=== PATIENT | male | born 1960 | race African-American/Black ===

== ENCOUNTER 2016-08-27 13:58 | Emergency (ER) | payer BC ==
[2016-08-27 14:25] VITALS: BP 125/70
[2016-08-27] MEDS ORDERED: ACETAMINOPHEN 325 MG TABLET PO ONE (14:33)
--- NOTE | 2016-08-27 14:35 | ER Document Report ---
ED Medical Screen (RME) - General Stated Complaint: PASSING OUT Mode of Arrival: Ambulatory Information source: Patient Notes: Patient complains of cold chills, body aches and a syncopal episode 1 today. Patient does report cough 4 days. Patient states that he got up this afternoon around noon and got dizzy and passed out. Patient does report some mild chest pain that he states only is present when he coughs. hx: High blood pressure I have greeted and performed a rapid initial assessment of this patient. A comprehensive ED assessment and evaluation of the patient, analysis of test results and completion of the medical decision making process will be conducted by additional ED providers. TRAVEL OUTSIDE OF THE [place] IN LAST 30 DAYS: No - Related Data Allergies/Adverse Reactions: No Known Allergies Allergy (Verified 08/27/16 14:33) Past Medical History - Past Medical History Cardiac Medical History: Reports: Hx Hypertension Denies: Hx Coronary Artery Disease, Hx Heart Attack Pulmonary Medical History: Denies: Hx Asthma, Hx Bronchitis, Hx COPD, Hx Pneumonia Neurological Medical History: Denies: Hx Cerebrovascular Accident, Hx Seizures Musculoskeltal Medical History: Denies Hx Arthritis - Immunizations Hx Diphtheria, Pertussis, Tetanus Vaccination: Yes Physical Exam - Vital signs Vitals: Temp Pulse Resp BP Pulse Ox 101.3 F H 119 H 20 125/70 94 08/27/16 14:23 08/27/16 14:23 08/27/16 14:23 08/27/16 14:23 08/27/16 14:23 - Respiratory Respiratory status: No respiratory distress Breath sounds: Nonproductive cough Course - Vital Signs Vital signs: Temp Pulse Resp BP Pulse Ox 101.3 F H 119 H 20 125/70 94 08/27/16 14:23 08/27/16 14:23 08/27/16 14:23 08/27/16 14:23 08/27/16 14:23
[2016-08-27 15:48] LABS: ABSOLUTE LYMPHOCYTES (AUTO) 1.6 10^3/uL (0.5-4.7); ABSOLUTE MONOCYTES (AUTO) 0.8 10^3/uL (0.1-1.4); ABSOLUTE NEUT (AUTO) 7.3 10^3/uL (1.7-8.2); BASOPHILS % (AUTO) 0.5 % (0-2); EOSINOPHILS % (AUTO) 0.2 % (0-6); HEMATOCRIT 46.1 % (37.9-51.0); HEMOGLOBIN 16.1 g/dL (13.5-17.0); HGB HCT DIFFERENCE 2.2; LYMPHOCYTES % (AUTO) 16.3 % (13-45); MEAN CORPUSCULAR VOLUME 92 fl (80-97); MONOCYTES % (AUTO) 8.6 % (3-13); RED BLOOD COUNT 5.04 10^6/uL (4.35-5.55); RED CELL DISTRIBUTION WIDTH 13.6 % (11.5-14.0); SEGMENTED NEUTROPHILS % (AUTO) 74.4 % (42-78); WHITE BLOOD COUNT 9.8 10^3/uL (4.0-10.5)
[2016-08-27 15:53] LABS: APPEARANCE,URINE SLIGHTLY-CLOUDY; BILIRUBIN,URINE NEGATIVE (NEGATIVE); GLUCOSE, URINE NEGATIVE (NEGATIVE); KETONES,URINE NEGATIVE (NEGATIVE); LEUKOCYTE ESTERASE,URINE NEGATIVE (NEGATIVE); NITRITE,URINE NEGATIVE (NEGATIVE); PROTEIN,URINE 30 mg/dL (NEGATIVE); URINE SPECIFIC GRAVITY 1.026; UROBILINOGEN,URINE NEGATIVE mg/dL (<2.0)
[2016-08-27 16:05] LABS: ALANINE AMINOTRANSFERASE 34 U/L (21-72); ALBUMIN 4.1 g/dL (3.5-5.0); ALKALINE PHOSPHATASE 77 U/L (38-126); ANION GAP 16 (5-19); ASPARTATE AMINO TRANSFERASE 20 U/L (17-59); BILIRUBIN,TOTAL 0.6 mg/dL (0.2-1.3); BLOOD UREA NITROGEN 14 mg/dL (7-20); CALCIUM 9.1 mg/dL (8.4-10.2); CARBON DIOXIDE 26 mmol/L (22-30); CHLORIDE 97 mmol/L (98-107); CREATINE KINASE 170 U/L (55-170); CREATININE RESULT 1.11 mg/dL (0.52-1.25); GLUCOSE 119 mg/dL (75-110); MAGNESIUM 1.7 mg/dL (1.6-2.3); POTASSIUM 4.1 mmol/L (3.6-5.0); SODIUM 138.9 mmol/L (137-145); TOTAL PROTEIN 7.6 g/dL (6.3-8.2)
[2016-08-27 16:19] LABS: CREATINE KINASE MB < 0.22 ng/mL (<4.55); TROPONIN I < 0.012 ng/mL
[2016-08-27] MEDS ORDERED: ALBUTEROL SULFATE HFA (90 MCG/PUFF) 8 GM MDI (1 MDI/ER DISP) IH PRN (16:32)
--- NOTE | 2016-08-27 16:39 | ER Document Report ---
ED General - General Chief Complaint: Passed Out Prior to Arrival Stated Complaint: PASSING OUT Mode of Arrival: Ambulatory Information source: Patient Notes: 56-year-old male presents with complaints of body aches cough shortness of breath productive green since Sunday. Patient has had his flu vaccine Notes today he stood up to go to the bathroom and passed out for unknown amount time. Patient denies any chest pain shortness breath during that episode patient denies any neurological deficits or any specific area of pain at this time TRAVEL OUTSIDE OF THE [place] IN LAST 30 DAYS: No - HPI Onset: Other Onset/Duration: Persistent Quality of pain: Achy Severity: Mild Pain Level: 1 Associated symptoms: Body/muscle aches, Productive cough, Fever, Shortness of breath Exacerbated by: Coughing Relieved by: Denies Similar symptoms previously: No Recently seen / treated by doctor: No - Related Data Allergies/Adverse Reactions: No Known Allergies Allergy (Verified 08/27/16 14:33) Past Medical History - General Information source: Patient - Social History Smoking Status: Former Smoker Cigarette use (# per day): No Chew tobacco use (# tins/day): No Smoking Education Provided: No Frequency of alcohol use: None Drug Abuse: None Family History: Reviewed & Not Pertinent Patient has suicidal ideation: No Patient has homicidal ideation: No - Past Medical History Cardiac Medical History: Reports: Hx Hypertension Denies: Hx Coronary Artery Disease, Hx Heart Attack Pulmonary Medical History: Denies: Hx Asthma, Hx Bronchitis, Hx COPD, Hx Pneumonia Neurological Medical History: Denies: Hx Cerebrovascular Accident, Hx Seizures Renal/ Medical History: Denies: Hx Peritoneal Dialysis Musculoskeltal Medical History: Denies Hx Arthritis - Immunizations Hx Diphtheria, Pertussis, Tetanus Vaccination: Yes Review of Systems - Review of Systems Notes: REVIEW OF SYSTEMS: CONSTITUTIONAL : Admits fever or recent illness EENT: Denies eye, ear, throat, or mouth pain or symptoms. Denies nasal or sinus congestion or discharge. Denies throat, tongue, or mouth swelling or difficulty swallowing. CARDIOVASCULAR: Denies chest pain. Denies palpitations or racing or irregular heart beat. Denies ankle edema. RESPIRATORY: Admits to productive cough shortness of breath GASTROINTESTINAL: Denies abdominal pain or distention. Denies nausea, vomiting , or diarrhea. Denies blood in vomitus, stools, or per rectum. Denies black, tarry stools. Denies constipation. GENITOURINARY: Denies difficulty urinating, painful urination, burning, frequency, blood in urine, or discharge. MUSCULOSKELETAL: Miss to body aches SKIN: Denies rash, lesions or sores. HEMATOLOGIC : Denies easy bruising or bleeding. LYMPHATIC: Denies swollen, enlarged glands. NEUROLOGICAL: Denies confusion or altered mental status. Denies passing out or loss of consciousness. Denies dizziness or lightheadedness. Denies headache. Denies weakness or paralysis or loss of use of either side. Denies problems with gait or speech. Denies sensory loss, numbness, or tingling. Denies seizures. PSYCHIATRIC: Denies anxiety or stress. Denies depression, suicidal ideation, or homicidal ideation. ALL OTHER SYSTEMS REVIEWED AND NEGATIVE. Dictation was performed using [employer] voice recognition software PHYSICAL EXAMINATION: GENERAL: Febrile but Well-appearing, well-nourished and in no acute distress. HEAD: Atraumatic, normocephalic. EYES: Pupils equal round and reactive to light, extraocular movements intact, sclera anicteric, conjunctiva are normal. ENT: Nares patent, oropharynx clear without exudates. Moist mucous membranes. NECK: Normal range of motion, supple without lymphadenopathy LUNGS: Faint expiratory wheezing left upper lobe HEART: Initially noted to be tachycardic ABDOMEN: Soft, nontender, nondistended abdomen. No guarding, no rebound. No masses appreciated. Musculoskeletal: Normal range of motion, no pitting or edema. No cyanosis. NEUROLOGICAL: Cranial nerves grossly intact. Normal speech, normal gait. Normal sensory, motor exams PSYCH: Normal mood, normal affect. SKIN: Warm, Dry, normal turgor, no rashes or lesions noted. Physical Exam - Vital signs Vitals: Temp Pulse Resp BP Pulse Ox 101.3 F H 119 H 20 125/70 94 08/27/16 14:23 08/27/16 14:23 08/27/16 14:23 08/27/16 14:23 08/27/16 14:23 Course - Re-evaluation Re-evalutation: 08/27/16 16:38 This is a well-appearing 48-year-old male who presents with fevers body aches productive cough, patient has probable pneumonia given symptoms, chest x-ray however was clear. Influenza is pending patient will be given an inhaler for his wheezing 08/27/16 17:42 Influenza was negative, patient appears well otherwise we'll discharge at this time with antibiotics for his productive cough After performing a Medical Screening Examination, I estimate there is LOW risk for ACUTE CORONARY SYNDROME, RESPIRATORY FAILURE, SEPSIS OR MENINGITIS, thus I consider the discharge disposition reasonable. The patient and I have discussed the diagnosis and risks, and we agree with discharging home with close follow- up. We also discussed returning to the Emergency Department immediately if new or worsening symptoms occur. We have discussed the symptoms which are most concerning (e.g., changing or worsening pain, trouble swallowing or breathing, neck stiffness, fever) that necessitate immediate return. - Vital Signs Vital signs: Temp Pulse Resp BP Pulse Ox 101.3 F H 119 H 20 125/70 94 08/27/16 14:23 08/27/16 14:23 08/27/16 14:23 08/27/16 14:23 08/27/16 14:23 - Laboratory Result Diagrams: 08/27/16 15:00 08/27/16 15:00 Laboratory results interpreted by me: 08/27/16 08/27/16 15:00 15:00 Chloride 97 L Glucose 119 H Urine Protein 30 H - Diagnostic Test Radiology reviewed: Image reviewed, Reports reviewed Radiology results interpreted by me: 08/27/16 17:42 Discharge - Discharge Clinical Impression: Productive cough, Syncope and collapse Fever Qualifiers: Fever type: unspecified Qualified Code(s): R50.9 - Fever, unspecified Condition: Stable Disposition: HOME, SELF-CARE Instructions: Pneumonia ([facility]) Prescriptions: Azithromycin 250 mg PO ASDIR PRN #6 tablet PRN Reason: Referrals: AREN AGUERO MD [Primary Care Provider] - Follow up tomorrow
--- NOTE | 2016-08-27 19:33 | EKG REPORT ---
SEVERITY:- OTHERWISE NORMAL ECG - SINUS TACHYCARDIA : Confirmed by: Chasity Herring 27-Aug-2016 19:32:18
== END 2016-08-27 17:50 | disposition home or self-care (01) ==
LOC: ER 13:58
DX: R05 Cough (principal); R55 Syncope and collapse; R50.9 Fever, unspecified; M79.1 Myalgia; I10 Essential (primary) hypertension
CPT/HCPCS: 93005; 99284; 36415; 87040; 87205; 82553; 82550; 83735; 85025; 80053; 81001; 84484; 87804; 71020; 93010; J3490; 87070

== ENCOUNTER 2016-12-04 16:29 | Emergency (ER) | payer BC ==
[2016-12-04] MEDS ORDERED: IBUPROFEN 800 MG TABLET PO ONE (17:10)
--- NOTE | 2016-12-04 17:10 | ER Document Report ---
ED Medical Screen (RME) - General Mode of Arrival: Ambulatory Information source: Patient TRAVEL OUTSIDE OF THE [place] IN LAST 30 DAYS: No - General Chief Complaint: Abdominal Pain Stated Complaint: LEFT SIDE FLANK PAIN Time Seen by Provider: 12/04/16 17:09 Notes: Patient presents today with complaints of left hip and left sided low back pain for the last month. Patient states that his pain started just after he began sleeping on the floor. Patient states his mother had to move in with him briefly so he gave her the bed. Patient states that it hurts when he moves. Patient denies vomiting or diarrhea. (H[place]ALL) - Related Data Allergies/Adverse Reactions: No Known Allergies Allergy (Verified 08/27/16 14:33) Past Medical History - Past Medical History Cardiac Medical History: Reports: Hx Hypertension Denies: Hx Coronary Artery Disease, Hx Heart Attack Pulmonary Medical History: Denies: Hx Asthma, Hx Bronchitis, Hx COPD, Hx Pneumonia Neurological Medical History: Denies: Hx Cerebrovascular Accident, Hx Seizures Renal/ Medical History: Denies: Hx Peritoneal Dialysis Musculoskeltal Medical History: Denies Hx Arthritis - Immunizations Hx Diphtheria, Pertussis, Tetanus Vaccination: Yes Review of Systems - Review of Systems Musculoskeletal: See HPI, Joint pain - left hip/low back pain Physical Exam - Extremities General lower extremity: Other - Left SI joint tenderness with palpation Course - Re-evaluation Re-evalutation: 12/04/16 19:07 I personally performed the services described in the documentation, reviewed and edited the documentation which was dictated to the scribe in my presence, and it accurately records my words and actions. (ANTON SPARROW) Scribe Documentation - Scribe Written by Nadineibe:: Karri Lopez, 12/04/2016 acting as scribe for :: Darren
--- NOTE | 2016-12-04 18:31 | ER Document Report ---
HPI - HPI Patient complains to provider of: left hip pain Onset: Other - One month Onset/Duration: Persistent Quality of pain: Achy Pain Level: 3 Context: Patient complains of left lower back pain that goes into the left hip for the past month. Patient states symptoms started after he was sleeping on the floor when his mother was staying at his house. Patient states he has since moved back and his bed the past 2 weeks although he has had continued left hip and back pain. Patient denies any urinary symptoms. Denies any fever, abdominal pain, nausea or vomiting. Pain is relieved whenever he lies on his right side. Pain flares up whenever he lays flat on his back. Associated Symptoms: Other - Left hip and lower back pain. denies: Fever Exacerbated by: Movement Relieved by: Denies Similar symptoms previously: No Recently seen / treated by doctor: No - ROS ROS below otherwise negative: Yes Systems Reviewed and Negative: Yes All other systems reviewed and negative - CONSTITUTIONAL Constitutional: DENIES: Fever, Chills - NEURO Neurology: DENIES: Weakness - RESPIRATORY Respiratory: DENIES: Trouble Breathing, Coughing - GASTROINTESTINAL Gastrointestinal: DENIES: Abdominal Pain, Nausea, Patient vomiting - URINARY Urinary: DENIES: Dysuria, Urgency, Frequency - MUSCULOSKELETAL Musculoskeletal: REPORTS: Extremity pain, Back Pain. 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 [employer] Lives with: Family Family History: Reviewed & Not Pertinent - Past Medical History Cardiac Medical History: Reports: Hx Hypertension Denies: Hx Coronary Artery Disease, Hx Heart Attack Pulmonary Medical History: Denies: Hx Asthma, Hx Bronchitis, Hx COPD, Hx Pneumonia Neurological Medical History: Denies: Hx Cerebrovascular Accident, Hx Seizures Renal/ Medical History: Denies: Hx Peritoneal Dialysis Musculoskeltal Medical History: Denies Hx Arthritis Surgical Hx: Negative - Immunizations Hx Diphtheria, Pertussis, Tetanus Vaccination: Yes Vertical Provider Document - CONSTITUTIONAL Agree With Documented VS: Yes Exam Limitations: No Limitations General Appearance: WD/WN, No Apparent Distress - INFECTION CONTROL TRAVEL OUTSIDE OF THE [place] IN LAST 30 DAYS: No - HEENT HEENT: Atraumatic, Normocephalic - NECK Neck: Normal Inspection - RESPIRATORY Respiratory: Breath Sounds Normal, No Respiratory Distress - CARDIOVASCULAR Cardiovascular: Regular Rate, Regular Rhythm - GI/ABDOMEN Gastrointestinal: Abdomen Soft, Abdomen Non-Tender - BACK Back: CVA Tenderness-Left Notes: Lower lumbar paraspinal tenderness, no step-off or deformity - MUSCULOSKELETAL/EXTREMETIES Musculoskeletal/Extremeties: MAEW, FROM, Tender - left hip tenderness with flexion and abduction, No Edema Notes: Normal gait - NEURO Level of Consciousness: Awake, Alert, Appropriate Motor/Sensory: No Motor Deficit Notes: No saddle anesthesia - DERM Integumentary: Warm, Dry, No Rash Course - Re-evaluation Re-evalutation: 12/04/16 19:32 The patient has been informed that they may have pre-hypertension or hypertension based on a blood pressure reading in the emergency department. I recommend that patient call the primary care provider listed on their discharge instructions or a physician of their choice by this week to arrange follow-up for further evaluation of possible pre-hypertension her hypertension. - Laboratory Laboratory results interpreted by me: 12/04/16 19:30 Labs- Entire Visit 12/04/16 18:38 Urine Color YELLOW Urine Appearance SLIGHTLY-CLOUDY Urine pH 5.0 Ur Specific [place] 1.033 Urine Protein 30 H Urine Glucose (UA) NEGATIVE Urine Ketones NEGATIVE Urine Blood NEGATIVE Urine Nitrite NEGATIVE Urine Bilirubin NEGATIVE Urine Urobilinogen NEGATIVE Ur Leukocyte Esterase NEGATIVE Urine WBC (Auto) 2 Urine RBC (Auto) 3 Squamous Epi Cells Auto 1 Urine Mucus (Auto) MANY Urine Ascorbic Acid NEGATIVE - Diagnostic Test Radiology reviewed: Reports reviewed Discharge - Discharge Clinical Impression: Left hip pain, Arthritis, History of hypertension Low back pain Qualifiers: Chronicity: unspecified Back pain laterality: left Sciatica presence: unspecified whether sciatica present Qualified Code(s): M54.5 - Low back pain Condition: Stable Disposition: HOME, SELF-CARE Instructions: Low Back Pain ([facility]), Arthritis ([facility]) Additional Instructions: Return immediately for any new or worsening symptoms Followup with your primary care provider, call tomorrow to make a followup appointment No heavy lifting You may use topical lidocaine patches [id number] as directed Prescriptions: Hydrocodone/Acetaminophen [[place] 5-325 Tablet] 1 each PO Q4 PRN #10 tablet PRN Reason: Forms: Elevated Blood Pressure, Return to Work Referrals: AREN AGUERO MD [Primary Care Provider] - Follow up tomorrow
[2016-12-04 19:15] LABS: APPEARANCE,URINE SLIGHTLY-CLOUDY; BILIRUBIN,URINE NEGATIVE (NEGATIVE); GLUCOSE, URINE NEGATIVE (NEGATIVE); KETONES,URINE NEGATIVE (NEGATIVE); LEUKOCYTE ESTERASE,URINE NEGATIVE (NEGATIVE); NITRITE,URINE NEGATIVE (NEGATIVE); PROTEIN,URINE 30 mg/dL (NEGATIVE); URINE SPECIFIC GRAVITY 1.033; UROBILINOGEN,URINE NEGATIVE mg/dL (<2.0)
[2016-12-04] MEDS ORDERED: HYDROCODONE/ACETAMINOPHEN 5-325 MG 6 TAB/DSPK PO PRN (19:30)
[2016-12-04] MEDS ORDERED: LIDOCAINE 5% (700 MG) TRANSDERMAL ADH..PATCH TP ONE (19:34)
[2016-12-04 20:23] VITALS: BP 150/87
== END 2016-12-04 20:24 | disposition home or self-care (01) ==
LOC: ER 16:29
DX: M25.552 Pain in left hip (principal); M19.90 Unspecified osteoarthritis, unspecified site; M54.5 Low back pain; I10 Essential (primary) hypertension
CPT/HCPCS: 72110; 72170; 81001; 99284

== ENCOUNTER 2017-08-10 09:30 | Observation (INO) | payer BC ==
[2017-08-10] MEDS ORDERED: ONDANSETRON HCL INJ/PF 4 MG/2 ML SDV IV ONE (09:45)
[2017-08-10] MEDS ORDERED: NORMAL SALINE 1000 ML 1,000 ML IV ONE ×2 (09:45→12:38)
--- NOTE | 2017-08-10 09:51 | ER Document Report ---
ED General - General Chief Complaint: Nausea/Vomiting Stated Complaint: VOMITING Time Seen by Provider: 08/10/17 09:45 Mode of Arrival: Ambulatory Information source: Patient Notes: 57-year-old male presents with complaints of one-week duration nausea and vomiting. Patient notes that intermittently after he eats 1 hour later he will vomit. Patient admits to mild epigastric tenderness from the vomiting. He denies any fevers or chills denies any diarrhea. He has no lower abdominal pain. Patient denies any alcohol use or any surgical history TRAVEL OUTSIDE OF THE [place] IN LAST 30 DAYS: No - HPI Onset: Last week Onset/Duration: Waxing and waning Quality of pain: Burning Severity: Mild Pain Level: Denies - unless palpated Associated symptoms: Nausea, Vomiting Exacerbated by: Denies Relieved by: Denies Similar symptoms previously: No Recently seen / treated by doctor: No - Related Data Allergies/Adverse Reactions: No Known Allergies Allergy (Verified 08/27/16 14:33) Past Medical History - Social History Smoking Status: Never Smoker Cigarette use (# per day): No Chew tobacco use (# tins/day): No Smoking Education Provided: No Family History: Reviewed & Not Pertinent - Past Medical History Cardiac Medical History: Reports: Hx Hypertension Denies: Hx Coronary Artery Disease, Hx Heart Attack Pulmonary Medical History: Denies: Hx Asthma, Hx Bronchitis, Hx COPD, Hx Pneumonia Neurological Medical History: Denies: Hx Cerebrovascular Accident, Hx Seizures Renal/ Medical History: Denies: Hx Peritoneal Dialysis Musculoskeltal Medical History: Denies Hx Arthritis - Immunizations Hx Diphtheria, Pertussis, Tetanus Vaccination: Yes Review of Systems - Review of Systems Notes: REVIEW OF SYSTEMS: CONSTITUTIONAL : Denies fever, chills, or sweats. Denies recent illness. EENT: Denies eye, ear, throat, or mouth pain or symptoms. Denies nasal or sinus congestion or discharge. Denies throat, tongue, or mouth swelling or difficulty swallowing. CARDIOVASCULAR: Denies chest pain. Denies palpitations or racing or irregular heart beat. Denies ankle edema. RESPIRATORY: Denies cough, cold, or chest congestion. Denies shortness of breath, difficulty breathing, or wheezing. GASTROINTESTINAL: Admits to abdominal pain nausea vomiting GENITOURINARY: Denies difficulty urinating, painful urination, burning, frequency, blood in urine, or discharge. MUSCULOSKELETAL: Denies back or neck pain or stiffness. Denies joint pain or swelling. SKIN: Denies rash, lesions or sores. HEMATOLOGIC : Denies easy bruising or bleeding. LYMPHATIC: Denies swollen, enlarged glands. NEUROLOGICAL: Denies confusion or altered mental status. Denies passing out or loss of consciousness. Denies dizziness or lightheadedness. Denies headache. Denies weakness or paralysis or loss of use of either side. Denies problems with gait or speech. Denies sensory loss, numbness, or tingling. Denies seizures. PSYCHIATRIC: Denies anxiety or stress. Denies depression, suicidal ideation, or homicidal ideation. ALL OTHER SYSTEMS REVIEWED AND NEGATIVE. Dictation was performed using [employer] voice recognition software PHYSICAL EXAMINATION: GENERAL: Well-appearing, well-nourished and in no acute distress. HEAD: Atraumatic, normocephalic. EYES: Pupils equal round and reactive to light, extraocular movements intact, sclera anicteric, conjunctiva are normal. ENT: Nares patent, oropharynx clear without exudates. Moist mucous membranes. NECK: Normal range of motion, supple without lymphadenopathy LUNGS: Breath sounds clear to auscultation bilaterally and equal. No wheezes rales or rhonchi. HEART: Regular rate and rhythm without murmurs ABDOMEN: Soft, minimally tender in the epigastric , nondistended abdomen. No guarding, no rebound. No masses appreciated. Musculoskeletal: Normal range of motion, no pitting or edema. No cyanosis. NEUROLOGICAL: Cranial nerves grossly intact. Normal speech, normal gait. Normal sensory, motor exams PSYCH: Normal mood, normal affect. SKIN: Warm, Dry, normal turgor, no rashes or lesions noted. Physical Exam - Vital signs Vitals: Temp Pulse Resp BP Pulse Ox 98.2 F 99 18 115/69 97 08/10/17 09:38 08/10/17 09:38 08/10/17 09:38 08/10/17 09:38 08/10/17 09:38 Course - Re-evaluation Re-evalutation: 08/10/17 11:07 Pt noted to have glucose 505, no hx of diabetes, pt given iv fluids, will contact pcp dr lane. 08/10/17 11:37 Primary CARE physician would like to admit the patient, he admits now that he is having polyuria polydipsia - Vital Signs Vital signs: Temp Pulse Resp BP Pulse Ox 98.2 F 99 18 115/69 97 08/10/17 09:38 08/10/17 09:38 08/10/17 09:38 08/10/17 09:38 08/10/17 09:38 - Laboratory Result Diagrams: 08/10/17 10:04 08/10/17 10:04 Laboratory results interpreted by me: 08/10/17 10:04 Sodium 133.3 L Chloride 94 L Glucose 505 H* Alkaline Phosphatase 160 H Lipase 330.2 H Discharge - Discharge Clinical Impression: New onset type 2 diabetes mellitus Condition: Stable Disposition: ADMITTED OBSERVATION Admitting Provider: Jacqueline Unit Admitted: Medical Floor
[2017-08-10 10:17] LABS: ABSOLUTE EOSINOPHILS # (AUTO) 0.1 10^3/uL (0.0-0.6); ABSOLUTE LYMPHOCYTES (AUTO) 3.6 10^3/uL (0.5-4.7); ABSOLUTE MONOCYTES (AUTO) 0.8 10^3/uL (0.1-1.4); ABSOLUTE NEUT (AUTO) 3.6 10^3/uL (1.7-8.2); BASOPHILS % (AUTO) 0.3 % (0-2); EOSINOPHILS % (AUTO) 1.1 % (0-6); HEMATOCRIT 44.6 % (37.9-51.0); HEMOGLOBIN 15.6 g/dL (13.5-17.0); LYMPHOCYTES % (AUTO) 44.1 % (13-45); MEAN CORPUSCULAR HEMOGLOBIN 32.8 pg (27.0-33.4); MEAN CORPUSCULAR VOLUME 94 fl (80-97); PLATELET COUNT 275 10^3/uL (150-450); RED BLOOD COUNT 4.76 10^6/uL (4.35-5.55); RED CELL DISTRIBUTION WIDTH 12.7 % (11.5-14.0); SEGMENTED NEUTROPHILS % (AUTO) 44.5 % (42-78); TOTAL CELLS COUNTED % (AUTO) 100 %; WHITE BLOOD COUNT 8.1 10^3/uL (4.0-10.5)
[2017-08-10 10:44] LABS: ALANINE AMINOTRANSFERASE 51 U/L (21-72); ALBUMIN 4.4 g/dL (3.5-5.0); ALKALINE PHOSPHATASE 160 U/L (38-126); ANION GAP 11 (5-19); ASPARTATE AMINO TRANSFERASE 28 U/L (17-59); BILIRUBIN,DIRECT 0.2 mg/dL (0.0-0.4); BILIRUBIN,TOTAL 0.7 mg/dL (0.2-1.3); BLOOD UREA NITROGEN 13 mg/dL (7-20); CALCIUM 9.7 mg/dL (8.4-10.2); CARBON DIOXIDE 28 mmol/L (22-30); CHLORIDE 94 mmol/L (98-107); LIPASE 330.2 U/L (23-300); POTASSIUM 4.2 mmol/L (3.6-5.0); SODIUM 133.3 mmol/L (137-145); TOTAL PROTEIN 7.4 g/dL (6.3-8.2)
[2017-08-10 10:53] LABS: GLUCOSE 505 mg/dL (75-110)
[2017-08-10] MEDS ORDERED: INSULIN REG, HUMAN 100 UNIT/ML 3 ML VIAL (PYX) IV ONE (11:09)
[2017-08-10] MEDS ORDERED: INSULIN REG, HUMAN 100 UNIT/ML 3 ML VIAL (PYX) ONE (12:46)
[2017-08-10 12:49] LABS: APPEARANCE,URINE CLEAR; BILIRUBIN,URINE NEGATIVE (NEGATIVE); COLOR,URINE STRAW; GLUCOSE, URINE >=500 mg/dL (NEGATIVE); KETONES,URINE NEGATIVE (NEGATIVE); LEUKOCYTE ESTERASE,URINE NEGATIVE (NEGATIVE); NITRITE,URINE NEGATIVE (NEGATIVE); PROTEIN,URINE NEGATIVE (NEGATIVE); URINE SPECIFIC GRAVITY 1.038; UROBILINOGEN,URINE NEGATIVE mg/dL (<2.0)
[2017-08-10] MEDS ORDERED: NORMAL SALINE 1000 ML 1,000 ML IV PRN (13:55)
[2017-08-10] MEDS ORDERED: ONDANSETRON HCL INJ/PF 4 MG/2 ML SDV IV PRN (13:56)
[2017-08-10] MEDS ORDERED: DEXTROSE 50%-WATER SYRINGE 12.5 GM/25 ML DOSE IV PRN (13:57)
[2017-08-10] MEDS ORDERED: DEXTROSE 50%-WATER SYRINGE 25 GM/50 ML DOSE IV PRN (13:57)
[2017-08-10] MEDS ORDERED: INSULIN LISPRO 100 UNIT/ML 3 ML VIAL SUBCUT PRN (13:57)
[2017-08-10] MEDS ORDERED: DEXTROSE 40% GEL 15 GM TUBE X 2 PO PRN (13:57)
[2017-08-10] MEDS ORDERED: GLUCAGON,HUMAN RECOMB 1 MG INJ IM PRN (13:57)
[2017-08-10] MEDS ORDERED: DEXTROSE 40% GEL 15 GM TUBE PO PRN (13:57)
[2017-08-10 14:10] LABS: VENOUS BLOOD BASE EXCESS 2.3 mmol/L; VENOUS BLOOD HCO3 27.5 mmol/L (20-32); VENOUS BLOOD PCO2 44.7 mmHg (35-63); VENOUS BLOOD PH 7.41 (7.30-7.42)
--- NOTE | 2017-08-10 19:41 | PDOC H&P ---
History of Present Illness Admission Date/PCP: 08/10/17 11:48 History of Present Illness: GINA WILSON is a 57 year old male, he came to the emergency room because of nausea and vomiting on evaluation he was found to have serum glucose 505, he has no history of diabetes mellitus though previous blood work that was done outpatient just impaired fasting blood glucose, he was advised of lifestyle change at the time. Past Medical History Cardiac Medical History: Reports: Hypertension Pulmonary Medical History: Reports: Pneumonia Neurological Medical History: Denies: Seizures Hematology: Denies: Anemia Social History Smoking Status: Former Smoker - Advance Directive Resuscitation Status: Full Code Family History Family History: Reviewed & Not Pertinent Parental Family History Reviewed: Yes Children Family History Reviewed: Yes Sibling(s) Family History Reviewed.: Yes Medication/Allergy Home Medications: Losartan/Hydrochlorothiazide [Hyzaar 100-25 Tablet] 1 tab PO DAILY 12/15/14 Allergies/Adverse Reactions: No Known Allergies Allergy (Verified 08/27/16 14:33) Review of Systems Constitutional: ABSENT: chills, fever(s), headache(s), weight gain, weight loss Eyes: ABSENT: visual disturbances Ears: ABSENT: hearing changes Cardiovascular: ABSENT: chest pain, dyspnea on exertion, edema, orthropnea, palpitations Respiratory: ABSENT: cough, hemoptysis Gastrointestinal: PRESENT: nausea, vomiting Genitourinary: PRESENT: nocturia, other - polyuria Musculoskeletal: ABSENT: joint swelling Integumentary: ABSENT: rash, wounds Neurological: ABSENT: abnormal gait, abnormal speech, confusion, dizziness, focal weakness, syncope Psychiatric: ABSENT: anxiety, depression, homidical ideation, suicidal ideation Endocrine: ABSENT: cold intolerance, heat intolerance, menstrual abnormalities, polydipsia, polyuria Hematologic/Lymphatic: ABSENT: easy bleeding, easy bruising, lymphadenopathy Physical Exam Vital Signs: Temp Pulse Resp BP Pulse Ox 98.3 F 83 18 108/68 98 08/10/17 17:01 08/10/17 17:01 08/10/17 17:01 08/10/17 17:01 08/10/17 17:01 Intake & Output 08/09/17 08/10/17 08/11/17 06:59 06:59 06:59 Intake Total 3110 Balance 3110 Weight 101.9 kg General appearance: PRESENT: no acute distress Eye exam: PRESENT: PERRLA Mouth exam: PRESENT: dry mucosa Respiratory exam: PRESENT: clear to auscultation pennie Cardiovascular exam: PRESENT: +S1, +S2 GI/Abdominal exam: PRESENT: soft Neurological exam: PRESENT: alert, CN II-XII grossly intact Results Laboratory Results: 08/10/17 08/10/17 08/10/17 12:28 12:28 13:52 VBG pH Cancelled 7.41 VBG pCO2 Cancelled 44.7 VBG HCO3 Cancelled 27.5 VBG Base Excess Cancelled 2.3 Urine Color STRAW Urine Appearance CLEAR Urine pH 5.0 Ur Specific [place] 1.038 Urine Protein NEGATIVE Urine Glucose (UA) >=500 H Urine Ketones NEGATIVE Urine Blood NEGATIVE Urine Nitrite NEGATIVE Ur Leukocyte Esterase NEGATIVE Urine WBC (Auto) 0 Urine RBC (Auto) 1 Assessment & Plan - Diagnosis (1) Diabetes mellitus type 2 with hyperosmolarity, uncontrolled Qualifiers: Diabetes mellitus complication detail: without coma Diabetes mellitus detention insulin use: without information systems operator use Qualified Code(s): E11.00 - Type 2 diabetes mellitus with hyperosmolarity without nonketotic hyperglycemic- hyperosmolar coma ([facility]) Is this a current diagnosis for this admission?: Yes Plan: Patient newly diagnosed diabetes mellitus with hyperosmolar state, admitted for observation for hydration, diabetes education (2) New onset type 2 diabetes mellitus Is this a current diagnosis for this admission?: Yes
--- NOTE | 2017-08-10 19:46 | PDOC DISCHARGE SUMMARY ---
General - Admit/Disc Date/PCP Admission Date/Primary Care Provider: 08/10/17 11:48 Discharge Date: 08/10/17 - Discharge Diagnosis (1) Diabetes mellitus type 2 with hyperosmolarity, uncontrolled Is this a current diagnosis for this admission?: Yes (2) New onset type 2 diabetes mellitus Is this a current diagnosis for this admission?: Yes - Additional Information Resuscitation Status: Full Code Discharge Diet: Diabetic Discharge Activity: Activity As Tolerated Prescriptions: Atorvastatin Calcium 20 mg PO DAILY #90 tablet Sitagliptin Phos/Metformin HCl [Janumet 50-1,000 Mg Tablet] 1 each PO BID #60 tablet Home Medications: Losartan/Hydrochlorothiazide [Hyzaar 100-25 Tablet] 1 tab PO DAILY 12/15/14 Atorvastatin Calcium 20 mg PO DAILY #90 tablet 08/10/17 Sitagliptin Phos/Metformin HCl [Janumet 50-1,000 Mg Tablet] 1 each PO BID #60 tablet 08/10/17 History of Present Illness History of Present Illness: GINA WILSON is a 57 year old male, he came to the emergency room because of nausea and vomiting on evaluation he was found to have serum glucose 505, he has no history of diabetes mellitus though previous blood work that was done outpatient just impaired fasting blood glucose, he was advised of lifestyle change at the time. Hospital Course Hospital Course: Patient was admitted for the management of new onset diabetes mellitus associated with hyperglycemia, he was treated with IV fluids normal saline and started on Janumet was brought in for observation. Physical Exam Vital Signs: Temp Pulse Resp BP Pulse Ox 98.3 F 83 18 108/68 98 08/10/17 17:01 08/10/17 17:01 08/10/17 17:01 08/10/17 17:01 08/10/17 17:01 Intake & Output 08/09/17 08/10/17 08/11/17 06:59 06:59 06:59 Intake Total 3110 Balance 3110 Weight 101.9 kg General appearance: PRESENT: no acute distress, well-developed, well-nourished Head exam: PRESENT: atraumatic, normocephalic Eye exam: PRESENT: conjunctiva pink, EOMI, PERRLA Ear exam: PRESENT: normal external ear exam Mouth exam: PRESENT: moist, tongue midline Neck exam: PRESENT: full ROM Respiratory exam: PRESENT: clear to auscultation pennie Cardiovascular exam: PRESENT: RRR, +S1, +S2 Pulses: PRESENT: normal dorsalis pedis pul, +2 pedal pulses bilateral Vascular exam: PRESENT: normal capillary refill GI/Abdominal exam: PRESENT: normal bowel sounds, soft Rectal exam: PRESENT: deferred Neurological exam: PRESENT: alert, awake, oriented to person, oriented to place , oriented to time, oriented to situation, CN II-XII grossly intact Psychiatric exam: PRESENT: appropriate affect, normal mood Skin exam: PRESENT: dry, intact, warm Results Laboratory Results: 08/10/17 08/10/17 08/10/17 12:28 12:28 13:52 VBG pH Cancelled 7.41 VBG pCO2 Cancelled 44.7 VBG HCO3 Cancelled 27.5 VBG Base Excess Cancelled 2.3 Urine Color STRAW Urine Appearance CLEAR Urine pH 5.0 Ur Specific [place] 1.038 Urine Protein NEGATIVE Urine Glucose (UA) >=500 H Urine Ketones NEGATIVE Urine Blood NEGATIVE Urine Nitrite NEGATIVE Ur Leukocyte Esterase NEGATIVE Urine WBC (Auto) 0 Urine RBC (Auto) 1
[2017-08-10] MEDS ORDERED: METFORMIN HCL 500 MG TABLET PO ONE (20:30)
[2017-08-10] MEDS ORDERED: INSULIN LISPRO 100 UNIT/ML 3 ML VIAL SUBCUT ONE (22:00)
[2017-08-11] MEDS ORDERED: METFORMIN HCL 500 MG TABLET PO SCH (08:00)
[2017-08-11 08:12] VITALS: BP 125/81
[2017-08-11] MEDS ORDERED: (PENDING PHARMACY ID) (Losartan/Hydrochlorothiazide [Hyzaar 100-25 Tablet] 1 TAB) PO SCH (10:00)
[2017-08-11] MEDS ORDERED: HYDROCHLOROTHIAZIDE 25 MG TABLET PO SCH (10:00)
[2017-08-11] MEDS ORDERED: LOSARTAN POTASSIUM 50 MG TABLET PO SCH (10:00)
== END 2017-08-11 08:40 | disposition home or self-care (01) ==
LOC: ER 09:30 → EH 11:48 → 4S 13:12
PROVIDERS: ADMIT Internal Medicine; ATTEND Internal Medicine
DX: E11.00 Type 2 diabetes mellitus with hyperosmolarity without nonketotic hyperglycemic-hyperosmolar coma (NKHHC) (principal); I10 Essential (primary) hypertension; Z79.899 Other long term (current) drug therapy; Z79.84 Long term (current) use of oral hypoglycemic drugs; Z87.891 Personal history of nicotine dependence
CPT/HCPCS: 99285; 96361; 96374; 36415; 82962 ×2; 83690; 85025; 80053; 81001; 83036; 82803; J1815 ×2; J2405; J7030

== ENCOUNTER → 2018-06-17 | Outpatient (CLI) | payer BC ==
[2018-06-17 15:36] LABS: ABSOLUTE BASOPHILS # (AUTO) 0.1 10^3/uL (0.0-0.2); ABSOLUTE EOSINOPHILS # (AUTO) 0.1 10^3/uL (0.0-0.6); ABSOLUTE LYMPHOCYTES (AUTO) 2.8 10^3/uL (0.5-4.7); ABSOLUTE MONOCYTES (AUTO) 0.8 10^3/uL (0.1-1.4); ABSOLUTE NEUT (AUTO) 7.2 10^3/uL (1.7-8.2); BASOPHILS % (AUTO) 0.6 % (0-2); EOSINOPHILS % (AUTO) 1.1 % (0-6); HEMOGLOBIN 14.9 g/dL (13.5-17.0); LYMPHOCYTES % (AUTO) 25.3 % (13-45); MEAN CORPUSCULAR HEMOGLOBIN 33.3 pg (27.0-33.4); MEAN CORPUSCULAR HGB CONC 36.4 g/dL (32.0-36.0); MEAN CORPUSCULAR VOLUME 91 fl (80-97); MONOCYTES % (AUTO) 7.6 % (3-13); PLATELET COUNT 247 10^3/uL (150-450); RED BLOOD COUNT 4.49 10^6/uL (4.35-5.55); RED CELL DISTRIBUTION WIDTH 13.1 % (11.5-14.0); SEGMENTED NEUTROPHILS % (AUTO) 65.4 % (42-78); TOTAL CELLS COUNTED % (AUTO) 100 %; WHITE BLOOD COUNT 11.1 10^3/uL (4.0-10.5)
[2018-06-17 15:57] LABS: ALANINE AMINOTRANSFERASE 18 U/L (21-72); ALBUMIN 4.3 g/dL (3.5-5.0); ALKALINE PHOSPHATASE 75 U/L (38-126); ANION GAP 13 (5-19); ASPARTATE AMINO TRANSFERASE 16 U/L (17-59); BILIRUBIN,DIRECT 0.2 mg/dL (0.0-0.4); BILIRUBIN,TOTAL 0.6 mg/dL (0.2-1.3); BLOOD UREA NITROGEN 16 mg/dL (7-20); CALCIUM 9.2 mg/dL (8.4-10.2); CARBON DIOXIDE 26 mmol/L (22-30); CHLORIDE 103 mmol/L (98-107); CHOLESTEROL 109.76 mg/dL (0-200); GLUCOSE 78 mg/dL (75-110); POTASSIUM 4.1 mmol/L (3.6-5.0); SODIUM 141.9 mmol/L (137-145); TOTAL PROTEIN 7.5 g/dL (6.3-8.2); TRIGLYCERIDES 173 mg/dL (<150); URIC ACID 5.8 mg/dL (3.5-8.5)
[2018-06-17 16:09] LABS: DIRECT LDL 50 mg/dL (<100)
[2018-06-17 16:12] LABS: FREE T4 (FREE THYROXINE) 1.39 ng/dL (0.78-2.19); VLDL CHOLESTEROL 34.6 mg/dL (10-31)
[2018-06-17 16:26] LABS: THYROID STIMULATING HORMONE 2.38 uIU/mL (0.47-4.68)
[2018-06-18 07:00] LABS: APPEARANCE,URINE CLOUDY; BILIRUBIN,URINE NEGATIVE (NEGATIVE); COLOR,URINE YELLOW; GLUCOSE, URINE NEGATIVE (NEGATIVE); KETONES,URINE NEGATIVE (NEGATIVE); LEUKOCYTE ESTERASE,URINE NEGATIVE (NEGATIVE); NITRITE,URINE NEGATIVE (NEGATIVE); PROTEIN,URINE 30 mg/dL (NEGATIVE); URINE SPECIFIC GRAVITY 1.029
[2018-06-19 11:40] LABS: CREATININE URINE 382.8 mg/dL (Not Estab.); MICROALBUMIN URINE 14.9 ug/mL (Not Estab.)
== END ==
LOC: OD 14:42
PROVIDERS: ATTEND Internal Medicine
DX: E11.9 Type 2 diabetes mellitus without complications (principal)
CPT/HCPCS: 36415; 80053; 80061; 81001; 82043; 82570; 83036; 84439; 84443; 84550; 85025

== ENCOUNTER → 2020-01-07 | Outpatient (CLI) | payer BC ==
[2020-01-07 13:37] LABS: ABSOLUTE BASOPHILS # (AUTO) 0.1 10^3/uL (0.0-0.2); ABSOLUTE EOSINOPHILS # (AUTO) 0.2 10^3/uL (0.0-0.6); ABSOLUTE LYMPHOCYTES (AUTO) 3.4 10^3/uL (0.5-4.7); ABSOLUTE MONOCYTES (AUTO) 0.8 10^3/uL (0.1-1.4); ABSOLUTE NEUT (AUTO) 4.7 10^3/uL (1.7-8.2); BASOPHILS % (AUTO) 0.8 % (0-2); EOSINOPHILS % (AUTO) 1.7 % (0-6); HEMATOCRIT 40.5 % (37.9-51.0); HEMOGLOBIN 14.4 g/dL (13.5-17.0); LYMPHOCYTES % (AUTO) 36.9 % (13-45); MEAN CORPUSCULAR HEMOGLOBIN 32.8 pg (27.0-33.4); MEAN CORPUSCULAR HGB CONC 35.5 g/dL (32.0-36.0); MEAN CORPUSCULAR VOLUME 92 fl (80-97); MONOCYTES % (AUTO) 9.1 % (3-13); PLATELET COUNT 256 10^3/uL (150-450); RED BLOOD COUNT 4.38 10^6/uL (4.35-5.55); RED CELL DISTRIBUTION WIDTH 13.9 % (11.5-14.0); SEGMENTED NEUTROPHILS % (AUTO) 51.5 % (42-78); TOTAL CELLS COUNTED % (AUTO) 100 %; WHITE BLOOD COUNT 9.1 10^3/uL (4.0-10.5)
[2020-01-07 13:39] LABS: APPEARANCE,URINE SLIGHTLY-CLOUDY; BILIRUBIN,URINE NEGATIVE (NEGATIVE); COLOR,URINE YELLOW; GLUCOSE, URINE NEGATIVE (NEGATIVE); KETONES,URINE NEGATIVE (NEGATIVE); LEUKOCYTE ESTERASE,URINE NEGATIVE (NEGATIVE); NITRITE,URINE NEGATIVE (NEGATIVE); PROTEIN,URINE NEGATIVE (NEGATIVE); URINE SPECIFIC GRAVITY 1.026; UROBILINOGEN,URINE NEGATIVE mg/dL (<2.0)
--- NOTE | 2020-01-07 13:39 | EKG REPORT ---
SEVERITY:- NORMAL ECG - SINUS RHYTHM : Confirmed by: Clovis Balderas MD 07-Jan-2020 13:38:46
--- NOTE | 2020-01-07 13:56 | RADIOLOGY REPORT (SQ) ---
EXAM DESCRIPTION: CHEST PA/LATERAL IMAGES COMPLETED DATE/TIME: 01/07/2020 1:12 pm REASON FOR STUDY: PRE-OP COMPARISON: 08/27/2016 EXAM PARAMETERS: NUMBER OF VIEWS: two views TECHNIQUE: Digital Frontal and Lateral radiographic views of the chest acquired. RADIATION DOSE: NA LIMITATIONS: none FINDINGS: LUNGS AND PLEURA: No opacities, masses or pneumothorax. No pleural effusion. MEDIASTINUM AND HILAR STRUCTURES: No masses or contour abnormalities. HEART AND VASCULAR STRUCTURES: Heart normal size. No evidence for failure. BONES: No acute findings. HARDWARE: None in the chest. OTHER: No other significant finding. IMPRESSION: 1. No significant interval changes since the prior examination dated 08/27/2016. No acut e findings. TECHNICAL DOCUMENTATION: JOB ID: [id number] 2010 [employer]- All Rights Reserved Reading location - IP/workstation name: [email or web address]
[2020-01-07 13:58] LABS: ANION GAP 9 (5-19); BLOOD UREA NITROGEN 20 mg/dL (7-20); CALCIUM 8.9 mg/dL (8.4-10.2); CARBON DIOXIDE 25 mmol/L (22-30); CHLORIDE 103 mmol/L (98-107); GLUCOSE 72 mg/dL (75-110); POTASSIUM 4.3 mmol/L (3.6-5.0)
== END ==
LOC: OD 12:38
PROVIDERS: ATTEND Orthopaedic Surgery
DX: Z01.812 Encounter for preprocedural laboratory examination (principal); Z01.810 Encounter for preprocedural cardiovascular examination; Z01.811 Encounter for preprocedural respiratory examination; M16.12 Unilateral primary osteoarthritis, left hip; E11.9 Type 2 diabetes mellitus without complications
CPT/HCPCS: 36415; 71046; 80048; 81001; 83036; 85025; 93005; 93010

== ENCOUNTER 2020-01-26 05:24 | Inpatient (IN) | payer BC ==
--- NOTE | 2020-01-21 11:15 | EKG REPORT ---
SEVERITY:- NORMAL ECG - SINUS RHYTHM : Confirmed by: Amalia Rowley MD 21-Jan-2020 11:13:34
--- NOTE | 2020-01-21 11:44 | RADIOLOGY REPORT (SQ) ---
EXAM DESCRIPTION: CHEST PA/LATERAL IMAGES COMPLETED DATE/TIME: 01/21/2020 11:16 am REASON FOR STUDY: PRE-OP COMPARISON: 01/07/2020 EXAM PARAMETERS: NUMBER OF VIEWS: two views TECHNIQUE: Digital Frontal and Lateral radiographic views of the chest acquired. RADIATION DOSE: NA LIMITATIONS: none FINDINGS: LUNGS AND PLEURA: No opacities, masses or pneumothorax. No pleural effusion. MEDIASTINUM AND HILAR STRUCTURES: No masses or contour abnormalities. HEART AND VASCULAR STRUCTURES: Heart normal size. No evidence for failure. BONES: No acute findings. HARDWARE: None in the chest. OTHER: No other significant finding. IMPRESSION: NO SIGNIFICANT RADIOGRAPHIC FINDING IN THE CHEST. TECHNICAL DOCUMENTATION: JOB ID: [id number] 2010 [employer]- All Rights Reserved Reading location - IP/workstation name: [email or web address]
[2020-01-21 11:54] LABS: APPEARANCE,URINE CLEAR; BILIRUBIN,URINE NEGATIVE (NEGATIVE); COLOR,URINE YELLOW; GLUCOSE, URINE NEGATIVE (NEGATIVE); KETONES,URINE NEGATIVE (NEGATIVE); LEUKOCYTE ESTERASE,URINE NEGATIVE (NEGATIVE); NITRITE,URINE NEGATIVE (NEGATIVE); PROTEIN,URINE NEGATIVE (NEGATIVE); UROBILINOGEN,URINE NEGATIVE mg/dL (<2.0)
[2020-01-21 11:56] LABS: ABSOLUTE BASOPHILS # (AUTO) 0.1 10^3/uL (0.0-0.2); ABSOLUTE EOSINOPHILS # (AUTO) 0.2 10^3/uL (0.0-0.6); ABSOLUTE LYMPHOCYTES (AUTO) 2.8 10^3/uL (0.5-4.7); ABSOLUTE MONOCYTES (AUTO) 0.7 10^3/uL (0.1-1.4); ABSOLUTE NEUT (AUTO) 3.8 10^3/uL (1.7-8.2); BASOPHILS % (AUTO) 0.8 % (0-2); EOSINOPHILS % (AUTO) 2.2 % (0-6); HEMATOCRIT 39.8 % (37.9-51.0); HEMOGLOBIN 14.2 g/dL (13.5-17.0); LYMPHOCYTES % (AUTO) 37.7 % (13-45); MEAN CORPUSCULAR HEMOGLOBIN 32.9 pg (27.0-33.4); MEAN CORPUSCULAR HGB CONC 35.6 g/dL (32.0-36.0); MEAN CORPUSCULAR VOLUME 93 fl (80-97); MONOCYTES % (AUTO) 9.2 % (3-13); PLATELET COUNT 239 10^3/uL (150-450); RED BLOOD COUNT 4.31 10^6/uL (4.35-5.55); RED CELL DISTRIBUTION WIDTH 13.6 % (11.5-14.0); SEGMENTED NEUTROPHILS % (AUTO) 50.1 % (42-78); TOTAL CELLS COUNTED % (AUTO) 100 %; WHITE BLOOD COUNT 7.5 10^3/uL (4.0-10.5)
[2020-01-21 12:22] LABS: ANION GAP 5 (5-19); BLOOD UREA NITROGEN 13 mg/dL (7-20); CALCIUM 8.7 mg/dL (8.4-10.2); CARBON DIOXIDE 28 mmol/L (22-30); CHLORIDE 103 mmol/L (98-107); GLUCOSE 90 mg/dL (75-110)
[~2020-01-26 05:24] MED LIST: BUPIVACAINE INJ/PF LIPOSOME/PF 266 MG/20 ML SDV INJ PRN; CEFAZOLIN INJ 1 GM VIAL IV PRN; IBUPROFEN 800 MG in NORMAL SALINE 250 ML IV PRN; LACTATED RINGERS 1000 ML IV PRN; OXYCODONE HCL SR 10 MG TABLET PO PRN; PANTOPRAZOLE SODIUM 20 MG TABLET.DR PO PRN; VANCOMYCIN HCL 1,000 MG in DEXTROSE 5%-WATER 250 ML IV PRN
[2020-01-26] MEDS ORDERED: PANTOPRAZOLE SODIUM 20 MG TABLET.DR PO ONE (05:41)
[2020-01-26] MEDS ORDERED: CEFAZOLIN INJ 1 GM VIAL ONE (05:41)
[2020-01-26] MEDS ORDERED: OXYCODONE HCL SR 10 MG TABLET PO ONE (05:41)
[2020-01-26] MEDS ORDERED: LIDOCAINE 0.5% INJ-PF (5 MG/ML) 50 ML SDV ONE (06:18)
[2020-01-26] MEDS ORDERED: MIDAZOLAM 2 MG/2 ML INJ ONE (06:20)
[2020-01-26] MEDS ORDERED: ONDANSETRON HCL INJ/PF 4 MG/2 ML SDV ONE (06:20)
[2020-01-26] MEDS ORDERED: FENTANYL CITRATE INJ/PF 100 MCG/2 ML AMPUL ONE (06:20)
[2020-01-26] MEDS ORDERED: DEXAMETHASONE SOD PHOSPHATE INJ 4 MG/1 ML VIAL ONE (06:20)
[2020-01-26] MEDS ORDERED: TRANEXAMIC ACID INJ/PF 1,000 MG/10 ML SDV ONE ×2 (06:20→09:30)
[2020-01-26] MEDS ORDERED: PROPOFOL INJ 200 MG/20 ML VIAL IV ONE (06:21)
[2020-01-26 06:33] LABS: POTASSIUM 4.4 mmol/L (3.6-5.0)
[2020-01-26] MEDS ORDERED: BUPIVACAINE HCL 0.25% /EPINEPHRINE INJ/PF 30 ML SDV ONE (06:35)
[2020-01-26] MEDS ORDERED: MORPHINE SULFATE 10 MG/ML INJ IV PRN (08:09)
[2020-01-26] MEDS ORDERED: FENTANYL CITRATE INJ/PF 100 MCG/2 ML AMPUL IV PRN ×3 (08:09)
[2020-01-26] MEDS ORDERED: ONDANSETRON HCL INJ/PF 4 MG/2 ML SDV IV PRN ×2 (08:09→09:07)
[2020-01-26] MEDS ORDERED: MEPERIDINE HCL/PF INJ 25 MG/1 ML DISP.SYRIN IV PRN (08:09)
[2020-01-26] MEDS ORDERED: DIPHENHYDRAMINE HCL 50 MG/ML VIAL IV PRN ×2 (08:09→09:07)
[2020-01-26] MEDS ORDERED: PROMETHAZINE HCL INJ 25 MG/1 ML VIAL IV PRN ×2 (08:09)
[2020-01-26] MEDS ORDERED: ONDANSETRON 4 MG TAB.RAPDIS PO PRN (09:07)
[2020-01-26] MEDS ORDERED: ACETAMINOPHEN 325 MG TABLET PO PRN (09:07)
[2020-01-26] MEDS ORDERED: OXYCODONE HCL IR 5 MG TABLET PO PRN (09:07)
[2020-01-26] MEDS ORDERED: MAG HYDROX/AL HYDROX/SIMETH SUSP 30 ML UDCUP PO PRN (09:07)
[2020-01-26] MEDS ORDERED: ZOLPIDEM TARTRATE 5 MG TABLET PO PRN (09:07)
[2020-01-26] MEDS ORDERED: MORPHINE SULFATE 10 MG/ML INJ ONE (09:25)
--- NOTE | 2020-01-26 09:25 | Operative Report ---
Operative Report DATE OF SURGERY: 01/26/20 PREOPERATIVE DIAGNOSIS: Left hip arthritis OPERATION: Left hip arthroplasty SURGEON: MARTA BERGER ANESTHESIA: Spinal TISSUE REMOVED OR ALTERED: Femoral head to pathology ESTIMATED BLOOD LOSS: 75 PROCEDURE: Implants used: Femur: Deena Accolade 2 stem, size 4, 127 degree neck Acetabular shell: 62 mm hemispherical Liner: 36 mm flat cross-link polyethylene liner Head: 36 mm ceramic -2.5 neck The patient is placed in a right lateral decubitus position on the operating table. The left lower extremity and hindquarter is prepped and draped in a sterile fashion. A curvilinear incision was made over the greater trochanter a posterior approach the hip was taken. The femoral head is dislocated and the femoral neck transected using an oscillating saw. Attention was next turned to the acetabulum. Soft tissues cleared off the acetabulum using electrocautery. The acetabulum was then prepared using a series of hemispherical reamers until a 62 millimeters reamer is seated. Subsequently a 62 millimeters Deena titanium hemispherical shell is impacted into position. A standard flat 6 millimeters cross-link liner is impacted into the shell. Attention was next turned to the femur. Access is gained to the femoral canal using a box osteotome to the piriformis fossa. The femur is then prepared using a series of broaches until a number 4 broach is seated. A trial reduction was now performed using a 36 millimeters head with -2.5 neck. Preoperative leg length was recreated and is excellent anterior posterior stability. A decision was made to proceed with the above construct. All trial implants were removed. The wound is irrigated with pulsed lavage. A 127 degree neck number 4 stem is impacted into the femoral canal. A trial reduction was again performed with a 36 mm head and a -2.5 neck. Findings as previously. The hip was dislocated one last time and the final chrome-cobalt head is impacted onto the trunnion. The hip was reduced. Wound is copiously irrigated with pulsed lavage. Sent closed in layers using interrupted Vicryl followed by jaciel. A sterile dressing is applied and the patient's returned to recovery room in satisfactory patient.
[2020-01-26] MEDS ORDERED: DEXTROSE 50%-WATER SYRINGE 12.5 GM/25 ML DOSE IV PRN (10:00)
[2020-01-26] MEDS ORDERED: DEXTROSE 50%-WATER SYRINGE 25 GM/50 ML DOSE IV PRN (10:00)
[2020-01-26] MEDS ORDERED: DEXTROSE 40% GEL 15 GM TUBE X 2 PO PRN (10:00)
[2020-01-26] MEDS ORDERED: GLUCAGON,HUMAN RECOMB 1 MG INJ IM PRN (10:00)
[2020-01-26] MEDS ORDERED: TRANEXAMIC ACID INJ/PF 1,000 MG/10 ML SDV IV ONE (10:00)
[2020-01-26] MEDS ORDERED: DEXTROSE 40% GEL 15 GM TUBE PO PRN (10:00)
[2020-01-26] MEDS ORDERED: OXYCODONE HCL SR 10 MG TABLET PO SCH (10:00)
--- NOTE | 2020-01-26 10:09 | RADIOLOGY REPORT (SQ) ---
EXAM DESCRIPTION: PELVIS AP IMAGES COMPLETED DATE/TIME: 01/26/2020 9:39 am REASON FOR STUDY: Post Op Long Cassette in PACU M16.12 UNILATERAL PRIMARY OSTEOARTHRITIS, LEFT HIP COMPARISON: 12/04/2016 NUMBER OF VIEWS: One view(s). TECHNIQUE: Digital radiographic images of the left hip post-procedure. LIMITATIONS: None. FINDINGS: BONES: No worrisome or unexpected findings post-procedure. DEVICE: Bi-polar prothesis. Device appears in appropriate location. SOFT TISSUES: No worrisome findings. Expected postoperative soft tissue changes. IMPRESSION: SATISFACTORY POSTOPERATIVE LEFT HIP. TECHNICAL DOCUMENTATION: JOB ID: [id number] 2010 [employer]- All Rights Reserved Reading location - IP/workstation name: [email or web address]
[2020-01-26] MEDS: PRENATAL VITAMIN W DHA CAPSULE PO SCH (10:35)
[2020-01-26] MEDS: PREGABALIN 75 MG CAPSULE PO SCH ×2 (10:35→21:48)
[2020-01-26] MEDS: SENNOSIDES/DOCUSATE 8.6-50 MG 1 EACH TABLET PO SCH ×2 (10:35→17:13)
[2020-01-26] MEDS: RINGERS SOLUTION,LACTATED 1,000 ML IV PRN ×2 (10:38→13:38)
[2020-01-26] MEDS: INSULIN LISPRO 100 UNIT/ML 3 ML VIAL SUBCUT SCH ×3 (11:34→21:48)
[2020-01-26] MEDS ORDERED: PHENYLEPHRINE HCL INJ/PF 10 MG/1 ML SDV ONE (14:31)
[2020-01-26] MEDS: IBUPROFEN 800 MG in NORMAL SALINE 250 ML IV SCH ×2 (14:54→21:48)
[2020-01-26] MEDS: OXYCODONE HCL SR 10 MG TABLET PO SCH (17:13)
[2020-01-26] MEDS ORDERED: ASPIRIN 81 MG TABLET, ENT COATED PO SCH (18:00)
[2020-01-26] MEDS ORDERED: VANCOMYCIN HCL 1,000 MG in DEXTROSE 5%-WATER 250 ML IV ONE (21:00)
[2020-01-27 05:48] LABS: HEMATOCRIT 31.9 % (37.9-51.0); HEMOGLOBIN 11.6 g/dL (13.5-17.0); MEAN CORPUSCULAR HEMOGLOBIN 33.6 pg (27.0-33.4); MEAN CORPUSCULAR HGB CONC 36.5 g/dL (32.0-36.0); MEAN CORPUSCULAR VOLUME 92 fl (80-97); PLATELET COUNT 210 10^3/uL (150-450); RED BLOOD COUNT 3.47 10^6/uL (4.35-5.55); RED CELL DISTRIBUTION WIDTH 13.6 % (11.5-14.0); WHITE BLOOD COUNT 9.6 10^3/uL (4.0-10.5)
[2020-01-27] MEDS ORDERED: PANTOPRAZOLE SODIUM 40 MG TABLET.DR PO SCH (06:00)
[2020-01-27] MEDS: OXYCODONE HCL SR 10 MG TABLET PO SCH (06:07)
[2020-01-27] MEDS: IBUPROFEN 800 MG in NORMAL SALINE 250 ML IV SCH (06:08)
[2020-01-27 06:22] LABS: ANION GAP 5 (5-19); BLOOD UREA NITROGEN 13 mg/dL (7-20); CALCIUM 8.3 mg/dL (8.4-10.2); CARBON DIOXIDE 25 mmol/L (22-30); CHLORIDE 103 mmol/L (98-107); GLUCOSE 105 mg/dL (75-110); POTASSIUM 4.4 mmol/L (3.6-5.0)
--- NOTE | 2020-01-27 06:56 | PDOC DISCHARGE SUMMARY ---
Impression - Admit/DC Date/PCP Admission Date/Primary Care Provider: 01/26/20 05:24 AREN AGUERO MD Discharge Date: 01/27/20 - Discharge Diagnosis (1) Arthritis of left hip Is this a current diagnosis for this admission?: Yes - Additional Information Resuscitation Status: Full Code Discharge Diet: Regular Discharge Activity: Balance Activity w/Rest, No tub bath Referrals: MARTA BERGER MD [ACTIVE STAFF] - 02/05/20 8:30 am Home Medications: Sitagliptin Phos/Metformin HCl [Janumet 50-1,000 mg Tablet] 1 each PO BID #60 tablet 08/10/17 Atorvastatin Calcium 20 mg PO QHS 01/26/20 Olmesartan/Amlodipin/Hcthiazid [Ucelvlo-Akdjfv-Tdti 40-10-12.5] 1 each PO DAILY 01/26/20 History of Present Illiness History of Present Illness: GINA WILSON is a 59 year old male 59-year-old black male with progressive left hip pain and functional disability second osteoarthritis. Patient is admitted for elective left hip arthroplasty. Hospital Course Hospital Course: Patient is admitted through the operating room where he undergoes uncomplicated left hip arthroplasty. He is returned to the floor in satisfactory condition. There is some wound drainage necessitating dressing changes x2 on the floor. Patient makes excellent progress with physical therapy and a weightbearing as tolerated toward basis. Dressing remains dry overnight but is changed on the first follow-up postoperative morning by myself to inspect the wound. Wound is well approximated without erythema or drainage at this time. Physical Exam Vital Signs: Temp Pulse Resp BP Pulse Ox 36.9 C 81 18 139/71 H 98 01/26/20 20:07 01/26/20 20:07 01/26/20 20:07 01/26/20 20:07 01/26/20 20:07 Intake & Output 01/25/20 01/26/20 01/27/20 06:59 06:59 06:59 Intake Total 0 2862 Output Total 50 Balance 0 2812 Weight 108 kg General appearance: PRESENT: no acute distress, well-developed, well-nourished Head exam: PRESENT: normocephalic Respiratory exam: PRESENT: unlabored Cardiovascular exam: PRESENT: RRR Pulses: PRESENT: +1 pedal pulses bilateral Vascular exam: PRESENT: normal capillary refill GI/Abdominal exam: PRESENT: soft Rectal exam: PRESENT: deferred Musculoskeletal exam: PRESENT: other - Left hip dressing clean dry and intact. Leg lengths equal. Distal neurovascular examination is intact. Skin exam: PRESENT: dry, intact, warm. ABSENT: cyanosis, rash Results Laboratory Results: WBC 9.6 10^3/uL (4.0-10.5) 01/27/20 05:01 RBC 3.47 10^6/uL (4.35-5.55) L 01/27/20 05:01 Hgb 11.6 g/dL (13.5-17.0) L 01/27/20 05:01 Hct 31.9 % (37.9-51.0) L 01/27/20 05:01 MCV 92 fl (80-97) 01/27/20 05:01 MCH 33.6 pg (27.0-33.4) H 01/27/20 05:01 MCHC 36.5 g/dL (32.0-36.0) H 01/27/20 05:01 RDW 13.6 % (11.5-14.0) 01/27/20 05:01 Plt Count 210 10^3/uL (150-450) 01/27/20 05:01 Lymph % (Auto) 37.7 % (13-45) 01/21/20 10:30 [place] % (Auto) 9.2 % (3-13) 01/21/20 10:30 Eos % (Auto) 2.2 % (0-6) 01/21/20 10:30 Baso % (Auto) 0.8 % (0-2) 01/21/20 10:30 Absolute Neuts (auto) 3.8 10^3/uL (1.7-8.2) 01/21/20 10:30 Absolute Lymphs (auto) 2.8 10^3/uL (0.5-4.7) 01/21/20 10:30 Absolute Monos (auto) 0.7 10^3/uL (0.1-1.4) 01/21/20 10:30 Absolute Eos (auto) 0.2 10^3/uL (0.0-0.6) 01/21/20 10:30 Absolute Basos (auto) 0.1 10^3/uL (0.0-0.2) 01/21/20 10:30 Seg Neutrophils % 50.1 % (42-78) 01/21/20 10:30 Sodium 132.9 mmol/L (137-145) L 01/27/20 05:01 Potassium 4.4 mmol/L (3.6-5.0) 01/27/20 05:01 Chloride 103 mmol/L (98-107) 01/27/20 05:01 Carbon Dioxide 25 mmol/L (22-30) 01/27/20 05:01 Anion Gap 5 (5-19) 01/27/20 05:01 BUN 13 mg/dL (7-20) 01/27/20 05:01 Creatinine 0.75 mg/dL (0.52-1.25) 01/27/20 05:01 Est GFR ( Amer) > 60 (>60) 01/27/20 05:01 Est GFR (MDRD) Non-Af > 60 (>60) 01/27/20 05:01 Glucose 105 mg/dL (75-110) 01/27/20 05:01 POC Glucose 116 mg/dL (70-110) H 01/27/20 06:39 Hemoglobin A1c % 5.4 % (4.7-6.0) 01/21/20 10:30 Calcium 8.3 mg/dL (8.4-10.2) L 01/27/20 05:01 Urine Color YELLOW 01/21/20 10:30 Urine Appearance CLEAR 01/21/20 10:30 Urine pH 6.0 (5.0-9.0) 01/21/20 10:30 Ur Specific [place] 1.030 01/21/20 10:30 Urine Protein NEGATIVE mg/dL (NEGATIVE) 01/21/20 10:30 Urine Glucose (UA) NEGATIVE mg/dL (NEGATIVE) 01/21/20 10:30 Urine Ketones NEGATIVE mg/dL (NEGATIVE) 01/21/20 10:30 Urine Blood NEGATIVE (NEGATIVE) 01/21/20 10:30 Urine Nitrite NEGATIVE (NEGATIVE) 01/21/20 10:30 Urine Bilirubin NEGATIVE (NEGATIVE) 01/21/20 10:30 Urine Urobilinogen NEGATIVE mg/dL (<2.0) 01/21/20 10:30 Ur Leukocyte Esterase NEGATIVE (NEGATIVE) 01/21/20 10:30 Urine WBC (Auto) 1 /HPF 01/21/20 10:30 Urine RBC (Auto) 1 /HPF 01/21/20 10:30 Squamous Epi Cells Auto <1 /HPF 01/21/20 10:30 Urine Mucus (Auto) OCC /LPF 01/21/20 10:30 Urine Ascorbic Acid NEGATIVE (NEGATIVE) 01/21/20 10:30 COVID-19 Source NASOPHARYNGEAL 01/21/20 09:35 COVID-19 (DIVYA) NOT DETECTED 01/21/20 09:35 Blood Type O NEGATIVE 01/26/20 05:58 Antibody Screen NEGATIVE 01/26/20 05:58 Impressions: Chest X-Ray 01/21/20 10:41 IMPRESSION: NO SIGNIFICANT RADIOGRAPHIC FINDING IN THE CHEST. Pelvis X-Ray 01/26/20 09:10 IMPRESSION: SATISFACTORY POSTOPERATIVE LEFT HIP. Plan Plan of Treatment: Discharge home in a weightbearing as tolerated basis with home health services and DME. Follow-up with Dr. Berger and [facility] for surgery in 2 weeks for wound inspection. Time Spent: Less than 30 Minutes Stroke Is this a Stroke Patient?: No Stroke Pt being discharged on Anti-thrombolytic therapy?: Yes Acute Heart Failure - Is this a Heart Failure Patient?: No
[2020-01-27 08:06] VITALS: BP 136/67
[2020-01-27] MEDS: INSULIN LISPRO 100 UNIT/ML 3 ML VIAL SUBCUT SCH (08:57)
[2020-01-27] MEDS: PRENATAL VITAMIN W DHA CAPSULE PO SCH (09:08)
[2020-01-27] MEDS: SENNOSIDES/DOCUSATE 8.6-50 MG 1 EACH TABLET PO SCH (09:09)
[2020-01-27] MEDS: PREGABALIN 75 MG CAPSULE PO SCH (09:09)
== END 2020-01-27 11:02 | disposition home health service (06) | DRG 470 ==
LOC: INOR 05:24 → 4S 10:11
PROVIDERS: ADMIT Orthopaedic Surgery; ATTEND Orthopaedic Surgery
PROC: 0SRB02Z Replacement of Left Hip Joint with Metal on Polyethylene Synthetic Substitute, Open Approach (ICD-10-PCS; principal; 2020-01-26 07:30)
DX: M16.12 Unilateral primary osteoarthritis, left hip (principal); E11.9 Type 2 diabetes mellitus without complications; I10 Essential (primary) hypertension; Z03.818 Encounter for observation for suspected exposure to other biological agents ruled out; Z79.899 Other long term (current) drug therapy; Z79.84 Long term (current) use of oral hypoglycemic drugs
CPT/HCPCS: 01214; 36415; 71046; 72170; 80048; 81001; 82947; 82962; 83036; 84132; 85025; 85027; 86850; 86900; 86901; 87635; 88304; 88311; 93005; 93010; 94799; C1776; C9803; J0690; J1100; J1741; J1815; J2250; J2270; J2370; J2405; J2704; J3010; J3370; J3490; J7050; J7060; J7120

== ENCOUNTER 2020-07-15 15:52 | Inpatient (IN) | payer BC ==
[2020-07-15] MEDS ORDERED: METOPROLOL TARTRATE PF/INJ 5 MG/5 ML SDV IV ONE ×2 (16:22→18:03)
[2020-07-15] MEDS ORDERED: ALBUTEROL SULFATE HFA (90 MCG/PUFF) 8 GM MDI (1 MDI/ER DISP) IH ONE (16:22)
--- NOTE | 2020-07-15 16:25 | ER Document Report ---
ED General - General Chief Complaint: Shortness Of Breath Stated Complaint: SHORTNESS OF BREATH Time Seen by Provider: 07/15/20 16:09 Mode of Arrival: Medic Information source: Patient, Emergency Med Personnel TRAVEL OUTSIDE OF THE [place] IN LAST 30 DAYS: No - HPI Notes: This patient is a very pleasant 60-year-old black male with no prior history of any cardiac conditions who presents the emergency department via EMS complaining of progressive shortness of breath over the past week. It is now gotten the point where he has dyspnea on exertion. He feels somewhat weak and short of breath even when he tries to stand up and walk around at home. He says that he gets a sharp pain in the left anterior chest when he standing up and breathing hard. His pain is not clearly related to exertion nor relieved by rest. He denies any increase in peripheral edema. He has no history of A. fib or congestive heart failure. He has no history of venous thromboembolic disorders. He denies any travel outside the area or exposure to any illness. EMS found lissette lujan to have a low-grade fever of about 100.1 and they did a rapid Covid antigen test which was negative. Patient states he is otherwise in his usual state of health. He is a lifetime non-smoker. He is on medication for type 2 diabetes and hypertension and says he takes his medications regularly as prescribed. The patient was noted to have an O2 sat of 76% on room air when EMS arrived. They initially put him on a nasal cannula but he was still somewhat hypoxic so they switched him to a nonrebreather. This brought his saturations up to 91 to 92% he feels subjectively better. - Related Data Allergies/Adverse Reactions: No Known Allergies Allergy (Verified 01/26/20 05:32) Past Medical History - General Information source: Patient - Social History Smoking Status: Never Smoker Frequency of alcohol use: None Drug Abuse: None Family History: Reviewed & Not Pertinent - Medical History Medical History: Other - Past Medical History Cardiac Medical History: Reports: Hx Hypertension Denies: Hx Atrial Fibrillation, Hx Congestive Heart Failure, Hx Coronary Artery Disease, Hx Heart Attack, Hx Hypercholesterolemia, Hx Peripheral Vascular Disease, Hx Pulmonary Embolism, Hx Heart Murmur Pulmonary Medical History: Reports: Hx Pneumonia Denies: Hx Asthma, Hx Bronchitis, Hx COPD, Hx Respiratory Failure, Hx Sleep Apnea, Hx Tuberculosis Neurological Medical History: Denies: Hx Cerebrovascular Accident, Hx Seizures Endocrine Medical History: Reports: Hx Diabetes Mellitus Type 2. Denies: Hx Graves' Disease, Hx Hyperthyroidism, Hx Hypothyroidism Renal/ Medical History: Denies: Hx Peritoneal Dialysis Malignancy Medical History: Denies Hx Lung Cancer Musculoskeletal Medical History: Denies Hx Arthritis, Denies Hx Fibromyalgia, Denies Hx Muscular Dystrophy, Denies Hx Systemic Lupus Erythematosus Psychiatric Medical History: Denies: Hx Depression Traumatic Medical History: Denies: Hx Fractures Past Surgical History: Denies: Hx Appendectomy, Hx Bowel Surgery, Hx Cholecystectomy, Hx Coronary Artery Bypass Graft, Hx Gastric Bypass Surgery, Hx Herniorrhaphy, Hx Pacemaker, Hx Tonsillectomy - Immunizations Hx Diphtheria, Pertussis, Tetanus Vaccination: Yes Review of Systems - Review of Systems Notes: All other systems are reviewed and are negative or noncontributory except as noted in the present illness. Physical Exam - Vital signs Vitals: Resp Pulse Ox 43 H 89 L 07/15/20 16:00 07/15/20 16:00 - Notes Notes: General: This is a somewhat dyspneic but otherwise hemodynamically stable patient in mild respiratory distress. Vital signs and nursing documentation were reviewed. HEENT: Normocephalic atraumatic. EOMI. ENT exam is unremarkable. Neck: Trachea is midline. No JVD. No adenopathy. Chest: Few musical rales and rhonchi in the right base. Slight scattered wheezes. No rhonchi. Heart: Tachycardic with an irregularly irregular rate. No murmurs rubs or gallops appreciated. Abdomen: Obese, soft, nontender, no masses organomegaly. Extremities: Trace to 1+ edema just above the ankles. Of Homans' sign bilateral ly. Upper extremities unremarkable. Skin: Warm dry good turgor no rashes. Neuro: Alert and oriented x3. Cranial nerves II through appear intact. Strength and sensation are grossly within normal limits and the patient has no focal abnormalities. Course - Re-evaluation Re-evalutation: 07/15/20 16:30 Patient was seen in a timely fashion. He was placed on a cardiac cath lab manager. His oxygen saturation was 91 to 92% on high flow O2 and he seemed hemodynamically stable for the moment. We will work on rate control while assessing underlying conditions. Final disposition will depend upon the results of the patient's testing and his response to treatment. Patient was ultimately found to be Covid positive. His chest x-ray certainly was consistent with that. His CT of his chest did not show any evidence of pulmonary embolism. He remains somewhat hypoxic. Our attempt to control his rate using metoprolol were met with mixed success. We were able to get him slow down but his blood pressure was quite labile. Ultimately I decided to switch back to diltiazem for more consistent rate control. I discussed the case with the night hospitalist on duty who accepted the patient for admission. 07/15/20 21:34 - Vital Signs Vital signs: Temp Pulse Resp BP Pulse Ox 100.3 F 28 H 141/68 H 93 07/15/20 16:19 07/15/20 23:46 07/15/20 23:46 07/15/20 23:46 - Laboratory Results Result Diagrams: 07/15/20 16:25 07/15/20 16:25 Laboratory Results Interpreted: 07/15/20 07/15/20 07/15/20 16:25 16:25 16:25 RBC 4.04 L Hgb 12.8 L Hct 36.3 L RDW 14.9 H Lymph % (Auto) 6.1 L Absolute Neuts (auto) 9.2 H Seg Neutrophils % 88.7 H APTT 40.0 H D-Dimer 1.16 H Sodium Carbon Dioxide BUN Creatinine Est GFR ( Amer) Est GFR (MDRD) Non-Af Glucose Calcium Magnesium 2.4 H C-Reactive Protein NT-Pro-B Natriuret Pep Albumin 07/15/20 07/15/20 07/15/20 16:25 16:25 16:25 RBC Hgb Hct RDW Lymph % (Auto) Absolute Neuts (auto) Seg Neutrophils % APTT D-Dimer Sodium 129.7 L Carbon Dioxide 19 L BUN 54 H Creatinine 1.67 H Est GFR ( Amer) 51 L Est GFR (MDRD) Non-Af 42 L Glucose 157 H Calcium 7.9 L Magnesium C-Reactive Protein 192.7 H NT-Pro-B Natriuret Pep 3450 H Albumin 3.4 L Critical Laboratory Results Reviewed: Yes Attending or Supervising Physician who Reviewed Labs: EVENS MCGRAW - Radiology Results Critical Radiology Results Reviewed: No Critical Results - EKG Interpretation by Me Rate: Tachycardia Rhythm: A.Fib Additional EKG results interpreted by me: 07/15/20 21:34 New onset Critical Care Note - Critical Care Note Total time excluding time spent on procedures (mins): 45 Comments: Critical care was provided for 45 minutes exclusive of other care provided in the department and other billable procedures performed. Discharge - Discharge Clinical Impression: Lab test positive for detection of COVID-19 virus, Atrial fibrillation with rapid ventricular response, Pneumonia due to COVID-19 virus Condition: Serious Disposition: ADMITTED INPATIENT Admitting Provider: Carlota Unit Admitted: [facility]
[2020-07-15 16:46] LABS: ABSOLUTE BASOPHILS # (AUTO) 0.1 10^3/uL (0.0-0.2); ABSOLUTE LYMPHOCYTES (AUTO) 0.6 10^3/uL (0.5-4.7); ABSOLUTE MONOCYTES (AUTO) 0.5 10^3/uL (0.1-1.4); ABSOLUTE NEUT (AUTO) 9.2 10^3/uL (1.7-8.2); BASOPHILS % (AUTO) 0.6 % (0-2); HEMATOCRIT 36.3 % (37.9-51.0); HEMOGLOBIN 12.8 g/dL (13.5-17.0); LYMPHOCYTES % (AUTO) 6.1 % (13-45); MEAN CORPUSCULAR HEMOGLOBIN 31.6 pg (27.0-33.4); MEAN CORPUSCULAR HGB CONC 35.2 g/dL (32.0-36.0); MEAN CORPUSCULAR VOLUME 90 fl (80-97); MONOCYTES % (AUTO) 4.6 % (3-13); PLATELET COUNT 289 10^3/uL (150-450); RED BLOOD COUNT 4.04 10^6/uL (4.35-5.55); RED CELL DISTRIBUTION WIDTH 14.9 % (11.5-14.0); SEGMENTED NEUTROPHILS % (AUTO) 88.7 % (42-78); TOTAL CELLS COUNTED % (AUTO) 100 %; WHITE BLOOD COUNT 10.4 10^3/uL (4.0-10.5)
[2020-07-15 16:52] LABS: D-DIMER 1.16 ug/mL (0.00-0.50); PROTHROMBIN TIME 13.4 SEC (11.4-15.4)
[2020-07-15] MEDS ORDERED: NORMAL SALINE 1000 ML 1,000 ML IV ONE ×2 (16:57→21:12)
[2020-07-15 17:12] LABS: ALBUMIN 3.4 g/dL (3.5-5.0); ALKALINE PHOSPHATASE 57 U/L (38-126); ANION GAP 11 (5-19); ASPARTATE AMINO TRANSFERASE 28 U/L (17-59); BILIRUBIN,DIRECT 0.1 mg/dL (0.0-0.4); BILIRUBIN,TOTAL 0.5 mg/dL (0.2-1.3); BLOOD UREA NITROGEN 54 mg/dL (7-20); CALCIUM 7.9 mg/dL (8.4-10.2); CARBON DIOXIDE 19 mmol/L (22-30); CHLORIDE 100 mmol/L (98-107); GLUCOSE 157 mg/dL (75-110); POTASSIUM 4.2 mmol/L (3.6-5.0); TOTAL PROTEIN 6.8 g/dL (6.3-8.2)
[2020-07-15 17:15] LABS: NT PRO BNP 3450 pg/mL (<125)
[2020-07-15 17:18] LABS: TROPONIN I < 0.012 ng/mL
--- NOTE | 2020-07-15 18:44 | RADIOLOGY REPORT (SQ) ---
EXAM DESCRIPTION: CHEST SINGLE VIEW IMAGES COMPLETED DATE/TIME: 07/15/2020 6:33 pm REASON FOR STUDY: Cough, dyspnea, a fib COMPARISON: 01/21/2020 EXAM PARAMETERS: NUMBER OF VIEWS: One view. TECHNIQUE: Single frontal radiographic view of the chest acquired. RADIATION DOSE: NA LIMITATIONS: None. FINDINGS: LUNGS AND PLEURA: Ill-defined ground-glass opacification in both lungs. MEDIASTINUM AND HILAR STRUCTURES: No masses. Contour normal. HEART AND VASCULAR STRUCTURES: Heart normal in size. Normal vasculature. BONES: No acute findings. HARDWARE: None in the chest. OTHER: No other significant finding. IMPRESSION: Ill-defined ground-glass opacification in both lungs. May represent an atypical infecti ous/ inflammatory process. TECHNICAL DOCUMENTATION: JOB ID: [id number] 2010 [employer]- All Rights Reserved Reading location - IP/workstation name: [email or web address]
--- NOTE | 2020-07-15 19:05 | EKG REPORT ---
SEVERITY:- ABNORMAL ECG - ATRIAL FIBRILLATION, V-RATE 98-163 BORDERLINE T WAVE ABNORMALITIES : Confirmed by: Clovis Balderas MD 15-Jul-2020 19:03:47
--- NOTE | 2020-07-15 19:47 | RADIOLOGY REPORT (SQ) ---
EXAM DESCRIPTION: CTA CHEST IMAGES COMPLETED DATE/TIME: 07/15/2020 7:35 pm REASON FOR STUDY: Dyspnea, hypoxia, elevated d-dimer COMPARISON: None. TECHNIQUE: CT scan of the chest performed using helical scanning technique with dynamic intravenous contrast injection. Images reviewed with lung, soft tissue and bone windows. Reconstructed coronal and sagittal MPR images reviewed. Additional 3 dimensional post-processing performed to develop Maximal Intensity Projection images (LA P). All images stored on PACS. All CT scanners at this facility use dose modulation, iterative reconstruction, and/or weight based d osing when appropriate to reduce radiation dose to as low as reasonably achievable (ALARA). [facility]: Dose Right [facility]: CareDose [facility]: Dose Right [facility]: Teradose 4D [facility]: [employer] CONTRAST TYPE AND DOSE: contrast/concentration: Isovue 300.00 mmol/ml; Total Contrast Delivered: 75. 0 ml; Total Saline Delivered: 75.0 ml Contrast bolus optimized for the pulmonary arteries. Not diagnostic for the aorta. RENAL FUNCTION: BUN 54 creatinine 1.67 RADIATION DOSE: CT Rad equipment meets quality standard of care and radiation dose reduction techniq ues were employed. CTDIvol: 13.2 - 29.8 mGy. DLP: 1037 mGy-cm. . LIMITATIONS: None. FINDINGS: LUNGS AND PLEURA: Extensive, slightly patchy ground-glass infiltrates bilaterally. AORTA AND GREAT VESSELS: No aneurysm. No dissection. HEART: No pericardial effusion. No significant coronary artery calcifications. PULMONARY ARTERIES: No emboli visualized in the main pulmonary arteries or the segmental branches. HILAR AND MEDIASTINAL STRUCTURES: No identified masses or abnormal nodes. HARDWARE: None in the chest. UPPER ABDOMEN: No significant findings. Limited exam. THYROID AND OTHER SOFT TISSUES: No significant finding. BONES: No acute or significant finding. 3D MIPS: Confirm above findings. OTHER: No other significant finding. IMPRESSION: 1. There is no pulmonary embolus. There is no aortic aneurysm or dissection. 2. Extensive, slightly patchy ground-glass infiltrates bilaterally. Nonspecific finding. May indic ate chronic interstitial changes or interstitial edema. Cannot exclude an atypical infectious/ infla mmatory process. COMMENT: Quality ID # [id number]: Final reports with documentation of one or more dose reduction techniques (e.g., Automated exposure control, adjustment of the mA and/or kV according to patient size, use of iterative reconstruction technique) TECHNICAL DOCUMENTATION: JOB ID: [id number] 2010 [employer]- All Rights Reserved Reading location - IP/workstation name: [email or web address]
[2020-07-15] MEDS ORDERED: DILTIAZEM HCL INJ 25 MG/5 ML VIAL IV ONE (21:13)
[2020-07-15] MEDS ORDERED: ACETAMINOPHEN 325 MG TABLET PO PRN (21:20)
[2020-07-15] MEDS ORDERED: ACETAMINOPHEN 650 MG SUPP.RECT PR PRN (21:20)
[2020-07-15] MEDS ORDERED: PROMETHAZINE HCL INJ 25 MG/1 ML VIAL IV PRN (21:20)
[2020-07-15] MEDS ORDERED: MAGNESIUM HYDROXIDE SUSP 30 ML UDCUP PO PRN (21:20)
[2020-07-15] MEDS ORDERED: LEVALBUTEROL HCL NEB 0.63 MG/3 ML AMPUL NEB PRN (21:20)
[2020-07-15] MEDS ORDERED: ONDANSETRON HCL INJ/PF 4 MG/2 ML SDV IV PRN (21:20)
[2020-07-15] MEDS ORDERED: DEXTROSE 40% GEL 15 GM TUBE PO PRN ×2 (21:28)
[2020-07-15] MEDS ORDERED: DEXTROSE 50%-WATER 25 GM/50 ML DISP.SYRIN IV PRN ×2 (21:28)
[2020-07-15] MEDS ORDERED: GLUCAGON,HUMAN RECOMB 1 MG INJ IM PRN (21:28)
[2020-07-15] MEDS ORDERED: LABETALOL HCL INJ 20 MG/4 ML DISP.SYRIN IV PRN (21:28)
[2020-07-15] MEDS ORDERED: MORPHINE SULFATE 10 MG/ML INJ IV ONE (21:46)
[2020-07-15] MEDS: ENOXAPARIN SODIUM INJ 120 MG/0.8 ML DISP.SYRIN SUBCUT SCH (21:56)
[2020-07-15] MEDS: FAMOTIDINE 20 MG TABLET PO SCH (21:57)
[2020-07-15] MEDS: DILTIAZEM HCL/D5W 125 MG/125 ML RTUINJ IV PRN (21:58)
[2020-07-15] MEDS ORDERED: MORPHINE SULFATE 10 MG/ML INJ IV PRN (22:13)
[2020-07-15] MEDS ORDERED: AZITHROMYCIN 250 MG TABLET PO ONE (22:30)
[2020-07-15 23:53] LABS: ARTERIAL BLOOD BASE EXCESS -6.6 mmol/L; ARTERIAL BLOOD H2CO3 0.97 mmol/L (1.05-1.35); ARTERIAL BLOOD HCO3 17.7 mmol/L (20-24); ARTERIAL BLOOD PCO2 32.1 mmHg (35-45); ARTERIAL BLOOD PH 7.36 (7.35-7.45); ARTERIAL BLOOD PO2 83.1 mmHg (80-100); ARTERIAL BLOOD TOTAL CO2 18.7 mmol/L (23-27)
[2020-07-15 23:54] LABS: ARTERIAL BLOOD FIO2 85%
[2020-07-16] MEDS: DEXAMETHASONE SOD PHOS INJ 10 MG/1 ML VIAL IV SCH ×2 (00:25→13:25)
[2020-07-16 00:41] LABS: INTERNATIONAL RATION (INR) 1.07; PROTHROMBIN TIME 14.1 SEC (11.4-15.4)
[2020-07-16 00:42] LABS: PARTIAL THROMBOPLASTIN TIME 44.5 SEC (23.5-35.8)
[2020-07-16 00:44] LABS: D-DIMER 2.12 ug/mL (0.00-0.50)
[2020-07-16] MEDS: INSULIN LISPRO 100 UNIT/ML 3 ML VIAL SUBCUT SCH ×5 (00:44→21:58)
[2020-07-16 00:47] LABS: FIBRINOGEN 766 mg/dL (209-497)
[2020-07-16 01:34] LABS: CREATINE KINASE 504 U/L (55-170)
[2020-07-16] MEDS: LEVALBUTEROL HCL NEB 0.63 MG/3 ML AMPUL NEB SCH ×4 (02:24→21:25)
[2020-07-16] MEDS ORDERED: DIGOXIN INJ 0.5 MG/2 ML AMPULE IV ONE (03:15)
[2020-07-16 06:36] LABS: HEMATOCRIT 34.2 % (37.9-51.0); HEMOGLOBIN 12.2 g/dL (13.5-17.0); MEAN CORPUSCULAR HGB CONC 35.8 g/dL (32.0-36.0); MEAN CORPUSCULAR VOLUME 90 fl (80-97); RED BLOOD COUNT 3.81 10^6/uL (4.35-5.55); RED CELL DISTRIBUTION WIDTH 15.1 % (11.5-14.0); WHITE BLOOD COUNT 10.5 10^3/uL (4.0-10.5)
[2020-07-16 06:58] LABS: ALBUMIN 3.2 g/dL (3.5-5.0); ALKALINE PHOSPHATASE 58 U/L (38-126); ANION GAP 12 (5-19); ASPARTATE AMINO TRANSFERASE 30 U/L (17-59); BILIRUBIN,DIRECT 0.2 mg/dL (0.0-0.4); BILIRUBIN,TOTAL 0.6 mg/dL (0.2-1.3); CALCIUM 7.9 mg/dL (8.4-10.2); CARBON DIOXIDE 16 mmol/L (22-30); CHLORIDE 105 mmol/L (98-107); GLUCOSE 253 mg/dL (75-110); TOTAL PROTEIN 6.5 g/dL (6.3-8.2)
[2020-07-16 07:45] LABS: BLOOD UREA NITROGEN 34 mg/dL (7-20)
[2020-07-16 08:08] LABS: ABSOLUTE LYMPHOCYTES# (MANUAL) 0.8 10^3/uL (0.5-4.7); ABSOLUTE MONOCYTES # (MANUAL) 0.2 10^3/uL (0.1-1.4); BASOPHILS % (MANUAL) 0 % (0-2); EOSINOPHILS % (MANUAL) 0 % (0-6); LYMPHOCYTES % (MANUAL) 7 % (13-45); MONOCYTES % (MANUAL) 2 % (3-13); PLATELET CLUMPS PRESENT; PLATELET COMMENT ADEQUATE; PLATELET COUNT 280 10^3/uL (150-450); RBC MORPHOLOGY COMMENT NORMO-CYTIC/CHROMIC; SEGMENTED NEUTROPHILS % (MAN) 90 % (42-78); TOTAL CELLS COUNTED 100
[2020-07-16] MEDS: DILTIAZEM HCL/D5W 125 MG/125 ML RTUINJ IV PRN ×2 (08:44→17:29)
[2020-07-16] MEDS: DOCUSATE SODIUM 100 MG CAPSULE PO SCH (13:24)
[2020-07-16] MEDS: ZINC SULFATE 220 MG CAPSULE PO SCH (13:24)
[2020-07-16] MEDS: ASPIRIN 81 MG TABLET, ENT COATED PO SCH (13:24)
[2020-07-16] MEDS: CHOLECALCIFEROL (D3) 1,000 UNIT (25 MCG) TABLET PO SCH (13:24)
[2020-07-16] MEDS: AZITHROMYCIN 250 MG TABLET PO SCH (13:24)
[2020-07-16] MEDS: ASCORBIC ACID 500 MG TABLET PO SCH ×2 (13:25→17:24)
[2020-07-16] MEDS: ENOXAPARIN SODIUM INJ 120 MG/0.8 ML DISP.SYRIN SUBCUT SCH ×2 (13:25→21:17)
[2020-07-16] MEDS: FAMOTIDINE 20 MG TABLET PO SCH ×2 (13:25→21:17)
[2020-07-16] MEDS ORDERED: IVERMECTIN 3 MG TABLET PO ONE (20:10)
[2020-07-16] MEDS ORDERED: IVERMECTIN 3 MG TABLET ONE (20:33)
[2020-07-16 21:52] LABS: APPEARANCE,URINE SLIGHTLY-CLOUDY; BILIRUBIN,URINE NEGATIVE (NEGATIVE); COLOR,URINE YELLOW; GLUCOSE, URINE 50 mg/dL (NEGATIVE); KETONES,URINE NEGATIVE (NEGATIVE); LEUKOCYTE ESTERASE,URINE NEGATIVE (NEGATIVE); NITRITE,URINE NEGATIVE (NEGATIVE); PROTEIN,URINE 100 mg/dL (NEGATIVE); URINE SPECIFIC GRAVITY 1.026; UROBILINOGEN,URINE NEGATIVE mg/dL (<2.0)
[2020-07-16] MEDS: TEMAZEPAM 7.5 MG CAPSULE PO PRN (23:58)
[2020-07-17] MEDS: LEVALBUTEROL HCL NEB 0.63 MG/3 ML AMPUL NEB SCH ×3 (02:02→13:18)
[2020-07-17] MEDS: DILTIAZEM HCL/D5W 125 MG/125 ML RTUINJ IV PRN ×2 (03:55→18:38)
[2020-07-17 09:53] LABS: HEMATOCRIT 38.6 % (37.9-51.0); HEMOGLOBIN 13.6 g/dL (13.5-17.0); MEAN CORPUSCULAR HEMOGLOBIN 30.9 pg (27.0-33.4); MEAN CORPUSCULAR HGB CONC 35.2 g/dL (32.0-36.0); MEAN CORPUSCULAR VOLUME 88 fl (80-97); PLATELET COUNT 334 10^3/uL (150-450); RED BLOOD COUNT 4.38 10^6/uL (4.35-5.55); RED CELL DISTRIBUTION WIDTH 14.9 % (11.5-14.0); WHITE BLOOD COUNT 12.8 10^3/uL (4.0-10.5)
[2020-07-17 10:09] LABS: ALBUMIN 3.2 g/dL (3.5-5.0); ALKALINE PHOSPHATASE 81 U/L (38-126); ANION GAP 11 (5-19); ASPARTATE AMINO TRANSFERASE 38 U/L (17-59); BILIRUBIN,DIRECT 0.3 mg/dL (0.0-0.4); BILIRUBIN,TOTAL 0.6 mg/dL (0.2-1.3); BLOOD UREA NITROGEN 28 mg/dL (7-20); CALCIUM 8.4 mg/dL (8.4-10.2); CARBON DIOXIDE 19 mmol/L (22-30); CHLORIDE 106 mmol/L (98-107); GLUCOSE 223 mg/dL (75-110); POTASSIUM 5.1 mmol/L (3.6-5.0); TOTAL PROTEIN 6.5 g/dL (6.3-8.2)
--- NOTE | 2020-07-17 10:11 | PDOC H&P ---
History of Present Illness Admission Date/PCP: 07/15/20 21:41 AREN AGUERO MD Patient complains of: Difficulty with breathing History of Present Illness: GINA WILSON is a 60 year old male patient of Dr. Aguero who presented to the ED via EMS with worsening shortness of breath over couple of days. Patient reported exertion of his shortness of breath with exertion. He reported associated left sided chest pain with change in position and with breathing heavily. He denied any palpitation,dizziness, LOC, or relief of his pain with rest. He claimed compliance with his medication and dietary restriction as it relates to his hypertension and diabetes mellitus. He denied any nausea, vomiting, or abdominal pain. He denied exposure to infected person with shanks virus or outside of his usual domiciliary area. EMS crew reported on site hypoxemia with saturation at 76% on room air and improved to 92% on nonrebreathing supplemental oxygen. His COVID-19 test was reported negative en route to the ED by EMS crew. His initial ED evaluation was significant for newly diagnosed atrial fibrillation with rapid ventricular response rate, left shift on his CBC, deranged electrolytes, elevated inflammatory indices with elevate D- Dimer, abnormal chest X ray with ill define ground glass appearance, CTA negative for pulmonary embolism but compatible findings with chest X ray, and positive COVID-19 test. He was advised hospitalization for further evaluation and management. His morbidities are as listed below. Past Medical History Cardiac Medical History: Reports: Hypertension Denies: Atrial Fibrillation, Congestive Heart Failure, Coronary Artery Disease, Myocardial Infarction, Hyperlipidema, Peripheral Vascular Disease, Pulmonary Embolism, Heart Murmur Pulmonary Medical History: Reports: Pneumonia Denies: Asthma, Bronchitis, Chronic Obstructive Pulmonary Disease (COPD), Respiratory Failure, Sleep Apnea, Tuberculosis Neurological Medical History: Denies: Seizures Endocrine Medical History: Reports: Diabetes Mellitus Type 2 Denies: Hyperthyroidism, Hypothyroidism Malignancy Medical History: Denies: Lung Cancer Musculoskeltal Medical History: Denies: Arthritis, Fibromyalgia Psychiatric Medical History: Denies: Depression Hematology: Denies: Anemia Past Surgical History Past Surgical History: Denies: Appendectomy, Cholecystectomy, Coronary Artery Bypass Graft, Gastric Bypass Surgery, Herniorrhaphy, Pacemaker, Tonsillectomy Social History Smoking Status: Never Smoker Hx Recreational Drug Use: No Hx Prescription Drug Abuse: No - Advance Directive Resuscitation Status: Full Code Family History Family History: Reviewed & Not Pertinent Parental Family History Reviewed: Yes Children Family History Reviewed: Yes Sibling(s) Family History Reviewed.: Yes Medication/Allergy Home Medications: Sitagliptin Phos/Metformin HCl [Janumet 50-1,000 mg Tablet] 1 each PO BID #60 tablet 08/10/17 Olmesartan/Amlodipin/Hcthiazid [[id number]-Tbxwej-Zarb 40-10-12.5] 1 each PO DAILY 01/26/20 Allergies/Adverse Reactions: No Known Allergies Allergy (Verified 01/26/20 05:32) Review of Systems Constitutional: PRESENT: fatigue, weakness. ABSENT: chills, fever(s), headache(s) Eyes: ABSENT: visual disturbances Ears: ABSENT: hearing changes Cardiovascular: PRESENT: dyspnea on exertion. ABSENT: chest pain, edema, orthropnea, palpitations Respiratory: PRESENT: dyspnea. ABSENT: cough, hemoptysis Gastrointestinal: ABSENT: abdominal pain, constipation, diarrhea, hematemesis, hematochezia, nausea, vomiting Genitourinary: ABSENT: dysuria, hematuria Musculoskeletal: ABSENT: joint swelling Integumentary: ABSENT: rash, wounds Neurological: ABSENT: abnormal gait, abnormal speech, confusion, dizziness, focal weakness, syncope Psychiatric: ABSENT: anxiety, depression, homidical ideation, suicidal ideation Endocrine: ABSENT: cold intolerance, heat intolerance, polydipsia, polyuria Hematologic/Lymphatic: ABSENT: easy bleeding, easy bruising, lymphadenopathy Allergic/Immunologic: ABSENT: seasonal rhinorrhea Physical Exam Vital Signs: Temp Pulse Resp BP Pulse Ox 98.8 F 84 30 H 144/82 H 94 07/16/20 16:03 07/16/20 16:03 07/16/20 16:03 07/16/20 16:03 07/16/20 16:03 Intake & Output 07/15/20 07/16/20 07/17/20 06:59 06:59 06:59 Intake Total 1330 447 Output Total 350 Balance 980 447 Weight 113 kg General appearance: PRESENT: mild distress, obese Head exam: PRESENT: atraumatic, normocephalic Eye exam: PRESENT: conjunctiva pink, EOMI, PERRLA. ABSENT: scleral icterus Ear exam: PRESENT: normal external ear exam Mouth exam: PRESENT: moist, tongue midline Neck exam: PRESENT: full ROM. ABSENT: carotid bruit, JVD, lymphadenopathy, thyr omegaly Respiratory exam: PRESENT: clear to auscultation pennie, decreased breath sounds Cardiovascular exam: PRESENT: RRR, +S1, +S2. ABSENT: diastolic murmur, rubs, systolic murmur Vascular exam: PRESENT: normal capillary refill. ABSENT: pallor GI/Abdominal exam: PRESENT: normal bowel sounds, soft. ABSENT: distended, guarding, mass, organolmegaly, rebound, tenderness Rectal exam: PRESENT: deferred Extremities exam: ABSENT: pedal edema Neurological exam: PRESENT: alert, awake, oriented to person, oriented to place, oriented to time, oriented to situation, CN II-XII grossly intact. ABSENT: motor sensory deficit Psychiatric exam: PRESENT: appropriate affect, normal mood. ABSENT: homicidal ideation, suicidal ideation Skin exam: PRESENT: dry, intact, warm. ABSENT: cyanosis, rash Results Laboratory Results: 07/16/20 06:19 07/16/20 06:19 07/15/20 07/16/20 07/16/20 23:40 00:24 00:24 WBC RBC Hgb Hct MCV MCH MCHC RDW Plt Count Seg Neutrophils % Carbonic Acid 0.97 L HCO3/H2CO3 Ratio 18:1 ABG pH 7.36 ABG pCO2 32.1 L ABG pO2 83.1 ABG HCO3 17.7 L ABG O2 Saturation 96.0 ABG Base Excess -6.6 FiO2 85% Sodium Potassium Chloride Carbon Dioxide Anion Gap BUN Creatinine Est GFR ( Amer) Glucose Calcium Ferritin 576.00 H Total Bilirubin AST Alkaline Phosphatase Total Protein Albumin Blood Type O NEGATIVE 07/16/20 07/16/20 06:19 06:19 WBC 10.5 RBC 3.81 L Hgb 12.2 L Hct 34.2 L MCV 90 MCH 32.0 MCHC 35.8 RDW 15.1 H Plt Count 280 Seg Neutrophils % Not Reportable Carbonic Acid HCO3/H2CO3 Ratio ABG pH ABG pCO2 ABG pO2 ABG HCO3 ABG O2 Saturation ABG Base Excess FiO2 Sodium 132.7 L Potassium 5.0 Chloride 105 Carbon Dioxide 16 L Anion Gap 12 BUN 34 H D Creatinine 1.17 Est GFR ( Amer) > 60 Glucose 253 H Calcium 7.9 L Ferritin 522.00 H Total Bilirubin 0.6 AST 30 Alkaline Phosphatase 58 Total Protein 6.5 Albumin 3.2 L Blood Type 07/15/20 07/16/20 16:25 00:24 Creatine Kinase 504 H Troponin I < 0.012 NT-Pro-B Natriuret Pep 3450 H Impressions: Chest X-Ray 07/15/20 16:21 IMPRESSION: Ill-defined ground-glass opacification in both lungs. May represent an atypical infectious/ inflammatory process. Chest/Abdomen CTA 07/15/20 18:03 IMPRESSION: 1. There is no pulmonary embolus. There is no aortic aneurysm or dissection. 2. Extensive, slightly patchy ground-glass infiltrates bilaterally. Nonspecific finding. May indicate chronic interstitial changes or interstitial edema. Cannot exclude an atypical infectious/ inflammatory process. Assessment & Plan - Diagnosis (1) Pneumonia due to COVID-19 virus Is this a current diagnosis for this admission?: Yes Plan: See covering admitting attending physician orders for details about care plan. (2) Hypoxemia requiring supplemental oxygen Is this a current diagnosis for this admission?: Yes Plan: See covering admitting attending physician orders for details about care plan. (3) Atrial fibrillation with rapid ventricular response Is this a current diagnosis for this admission?: Yes Plan: See covering admitting attending physician orders for details about care plan. (4) Diabetes mellitus type 2 in obese Is this a current diagnosis for this admission?: Yes Plan: See covering admitting attending physician orders for details about care plan. (5) HTN (hypertension) Qualifiers: Hypertension type: essential hypertension Qualified Code(s): I10 - Essential (primary) hypertension Is this a current diagnosis for this admission?: Yes Plan: See covering admitting attending physician orders for details about care plan. - Time Time Spent: 50 to 70 Minutes Medications reviewed and adjusted accordingly: Yes Anticipated Discharge Disposition: Home with Home Health Anticipated Discharge Timeframe: within 72 hours - Inpatient Certification Based on my medical assessment, after consideration of the patient's comorbidities, presenting symptoms, or acuity I expect that the services needed warrant INPATIENT care.: Yes I certify that my determination is in accordance with my understanding of Medicare's requirements for reasonable and necessary INPATIENT services [42 CFR 412.3e].: Yes Medical Necessity: Significant Comorbidiites Make Outpatient Treatment Too Risky, Need Close Monitoring Due to Risk of Patient Decompensation, Need For IV Fluids, Need For Continuous Telemetry Monitoring, Need for IV Antibiotics, Risk of Complication if Not Cared For in Hospital, Risk of Diagnosis Which Will Require Inpatient Eval/Care/Monitoring Post Hospital Care: D/C Implant Coordinator Documentation - Plan Summary Plan Summary: See covering admitting attending physician orders for details about care plan.
[2020-07-17 10:56] LABS: ABSOLUTE LYMPHOCYTES# (MANUAL) 0.9 10^3/uL (0.5-4.7); ABSOLUTE MONOCYTES # (MANUAL) 0.8 10^3/uL (0.1-1.4); BASOPHILS % (MANUAL) 0 % (0-2); EOSINOPHILS % (MANUAL) 0 % (0-6); LYMPHOCYTES % (MANUAL) 6 % (13-45); MONOCYTES % (MANUAL) 6 % (3-13); SEGMENTED NEUTROPHILS % (MAN) 87 % (42-78); TOTAL CELLS COUNTED 100
[2020-07-17 10:59] LABS: ANISOCYTOSIS SLIGHT; PLATELET COMMENT ADEQUATE
[2020-07-17] MEDS: INSULIN LISPRO 100 UNIT/ML 3 ML VIAL SUBCUT SCH ×4 (11:37→21:57)
[2020-07-17] MEDS: CHOLECALCIFEROL (D3) 1,000 UNIT (25 MCG) TABLET PO SCH (11:38)
[2020-07-17] MEDS: ASPIRIN 81 MG TABLET, ENT COATED PO SCH (11:40)
[2020-07-17] MEDS: ASCORBIC ACID 500 MG TABLET PO SCH ×2 (11:40→18:41)
[2020-07-17] MEDS: FAMOTIDINE 20 MG TABLET PO SCH ×2 (11:40→21:28)
[2020-07-17] MEDS: ZINC SULFATE 220 MG CAPSULE PO SCH (11:40)
[2020-07-17] MEDS: DOCUSATE SODIUM 100 MG CAPSULE PO SCH (11:40)
[2020-07-17] MEDS: AZITHROMYCIN 250 MG TABLET PO SCH (11:40)
[2020-07-17] MEDS: ENOXAPARIN SODIUM INJ 120 MG/0.8 ML DISP.SYRIN SUBCUT SCH ×2 (11:55→21:28)
[2020-07-17] MEDS: DEXAMETHASONE SOD PHOS INJ 10 MG/1 ML VIAL IV SCH (11:56)
[2020-07-17] MEDS ORDERED: NORMAL SALINE 250 ML IV PRN (14:50)
--- NOTE | 2020-07-17 14:53 | PDOC PROGRESS REPORT ---
Subjective Date:: 07/17/20 Subjective:: Patient reported continued difficulty with breathing and inability to get off Bi PAP support to eat. No chest pain. No fever or chills. No nausea, vomiting, or diarrhea. Reason For Visit: ACUTE RESPIRATORY FAILURE WITH HYPOXIA, COVID-19 Physical Exam Vital Signs: Temp Pulse Resp BP Pulse Ox 98.7 F 96 29 H 113/68 97 07/17/20 03:21 07/17/20 09:00 07/17/20 04:10 07/17/20 09:00 07/17/20 08:48 Intake & Output 07/16/20 07/17/20 07/18/20 06:59 06:59 06:59 Intake Total 1330 571 Output Total 350 425 Balance 980 146 Weight 113 kg 110.7 kg General appearance: PRESENT: mild distress Head exam: PRESENT: atraumatic, normocephalic Eye exam: PRESENT: conjunctiva pink. ABSENT: scleral icterus Mouth exam: PRESENT: moist Respiratory exam: PRESENT: clear to auscultation pennie, decreased breath sounds Cardiovascular exam: PRESENT: irregular rhythm, +S1, +S2. ABSENT: diastolic murmur, systolic murmur Vascular exam: ABSENT: pallor GI/Abdominal exam: PRESENT: normal bowel sounds, soft. ABSENT: tenderness Extremities exam: ABSENT: pedal edema Neurological exam: PRESENT: alert, awake Psychiatric exam: ABSENT: agitated, anxious Skin exam: PRESENT: dry, warm Results Laboratory Results: 07/16/20 13:15 Urine Color YELLOW Urine Appearance SLIGHTLY-CLOUDY Urine pH 6.0 Ur Specific [place] 1.026 Urine Protein 100 H Urine Glucose (UA) 50 H Urine Ketones NEGATIVE Urine Blood SMALL H Urine Nitrite NEGATIVE Ur Leukocyte Esterase NEGATIVE Urine WBC (Auto) 1 Urine RBC (Auto) 1 07/15/20 07/16/20 16:25 00:24 Creatine Kinase 504 H Troponin I < 0.012 NT-Pro-B Natriuret Pep 3450 H Impressions: Chest X-Ray 07/15/20 16:21 IMPRESSION: Ill-defined ground-glass opacification in both lungs. May represent an atypical infectious/ inflammatory process. Chest/Abdomen CTA 07/15/20 18:03 IMPRESSION: 1. There is no pulmonary embolus. There is no aortic aneurysm or dissection. 2. Extensive, slightly patchy ground-glass infiltrates bilaterally. Nonspecific finding. May indicate chronic interstitial changes or interstitial edema. Cannot exclude an atypical infectious/ inflammatory process. Assessment & Plan - Diagnosis (1) Pneumonia due to COVID-19 virus Is this a current diagnosis for this admission?: Yes (2) Hypoxemia requiring supplemental oxygen Is this a current diagnosis for this admission?: Yes (3) Atrial fibrillation with rapid ventricular response Is this a current diagnosis for this admission?: Yes (4) Diabetes mellitus type 2 in obese Is this a current diagnosis for this admission?: Yes (5) HTN (hypertension) Qualifiers: Hypertension type: essential hypertension Qualified Code(s): I10 - Essential (primary) hypertension Is this a current diagnosis for this admission?: Yes - Time Time Spent with patient: 25-34 minutes Level of Care: IMCU Medications reviewed and adjusted accordingly: Yes Anticipated discharge: Home with Homehealth Anticipated DC Timeframe: within 72 hours - Inpatient Certification Based on my medical assessment, after consideration of the patient's comorbidities, presenting symptoms, or acuity I expect that the services needed warrant INPATIENT care.: Yes I certify that my determination is in accordance with my understanding of Medicare's requirements for reasonable and necessary INPATIENT services [42 CFR 412.3e].: Yes Medical Necessity: Significant Comorbidiites Make Outpatient Treatment Too Risky, Need Close Monitoring Due to Risk of Patient Decompensation, Need For IV Fluids, Need For Continuous Telemetry Monitoring, Need for IV Antibiotics, Risk of Complication if Not Cared For in Hospital, Risk of Diagnosis Which Will Require Inpatient Eval/Care/Monitoring Post Hospital Care: D/C Motorcycle Riding Instructor Documentation - Plan Summary Plan Summary: He will receive second dose of Ivermectin therapy today. Patient will receive convalescent plasma infusion x 1 dose. Continue all other current medication management. Obtain CBC with diff, lipid panel, and CMP in AM
[2020-07-17] MEDS ORDERED: REMDESIVIR 200 MG in NORMAL SALINE 250 ML IV ONE (18:00)
[2020-07-17] MEDS ORDERED: IVERMECTIN 3 MG TABLET PO ONE (20:00)
[2020-07-17] MEDS ORDERED: IVERMECTIN 3 MG TABLET ONE (21:20)
[2020-07-17] MEDS: TEMAZEPAM 7.5 MG CAPSULE PO PRN (21:28)
[2020-07-17 22:16] LABS: FIBRINOGEN 775 mg/dL (209-497); INTERNATIONAL RATION (INR) 1.13; PROTHROMBIN TIME 14.7 SEC (11.4-15.4)
[2020-07-17 22:17] LABS: PARTIAL THROMBOPLASTIN TIME 42.6 SEC (23.5-35.8)
[2020-07-17 22:19] LABS: D-DIMER 2.18 ug/mL (0.00-0.50)
[2020-07-18] MEDS: DILTIAZEM HCL/D5W 125 MG/125 ML RTUINJ IV PRN ×2 (05:42→14:30)
[2020-07-18 07:15] LABS: HEMATOCRIT 38.7 % (37.9-51.0); HEMOGLOBIN 13.2 g/dL (13.5-17.0); MEAN CORPUSCULAR HEMOGLOBIN 30.6 pg (27.0-33.4); MEAN CORPUSCULAR VOLUME 90 fl (80-97); PLATELET COUNT 413 10^3/uL (150-450); WHITE BLOOD COUNT 15.4 10^3/uL (4.0-10.5)
[2020-07-18 07:26] LABS: ALBUMIN 3.3 g/dL (3.5-5.0); ALKALINE PHOSPHATASE 113 U/L (38-126); ANION GAP 9 (5-19); ASPARTATE AMINO TRANSFERASE 41 U/L (17-59); BILIRUBIN,DIRECT 0.3 mg/dL (0.0-0.4); BILIRUBIN,TOTAL 0.6 mg/dL (0.2-1.3); BLOOD UREA NITROGEN 35 mg/dL (7-20); CALCIUM 8.6 mg/dL (8.4-10.2); CARBON DIOXIDE 23 mmol/L (22-30); CHLORIDE 108 mmol/L (98-107); CHOLESTEROL 158.35 mg/dL (0-200); GLUCOSE 186 mg/dL (75-110); POTASSIUM 5.8 mmol/L (3.6-5.0); TRIGLYCERIDES 160 mg/dL (<150)
[2020-07-18 07:37] LABS: DIRECT LDL 83 mg/dL (<100)
[2020-07-18 08:17] LABS: ABSOLUTE LYMPHOCYTES# (MANUAL) 0.5 10^3/uL (0.5-4.7); ABSOLUTE MONOCYTES # (MANUAL) 0.8 10^3/uL (0.1-1.4); BAND NEUTROPHILS % (MANUAL) 2 % (3-5); BASOPHILS % (MANUAL) 0 % (0-2); EOSINOPHILS % (MANUAL) 0 % (0-6); LYMPHOCYTES % (MANUAL) 2 % (13-45); MONOCYTES % (MANUAL) 5 % (3-13); SEGMENTED NEUTROPHILS % (MAN) 90 % (42-78); TOTAL CELLS COUNTED 100
[2020-07-18 08:19] LABS: ANISOCYTOSIS SLIGHT; OVALOCYTES SLIGHT; PLATELET CLUMPS PRESENT; PLATELET COMMENT ADEQUATE; POLYCHROMASIA SLIGHT; TEAR DROP CELLS SLIGHT
[2020-07-18] MEDS: INSULIN LISPRO 100 UNIT/ML 3 ML VIAL SUBCUT SCH ×4 (10:57→22:09)
[2020-07-18] MEDS: CHOLECALCIFEROL (D3) 1,000 UNIT (25 MCG) TABLET PO SCH (11:04)
[2020-07-18] MEDS: ASPIRIN 81 MG TABLET, ENT COATED PO SCH (11:04)
[2020-07-18] MEDS: FAMOTIDINE 20 MG TABLET PO SCH ×2 (11:04→21:02)
[2020-07-18] MEDS: ZINC SULFATE 220 MG CAPSULE PO SCH (11:04)
[2020-07-18] MEDS: DOCUSATE SODIUM 100 MG CAPSULE PO SCH (11:05)
[2020-07-18] MEDS: ASCORBIC ACID 500 MG TABLET PO SCH ×2 (11:05→17:35)
[2020-07-18] MEDS: AZITHROMYCIN 250 MG TABLET PO SCH (11:05)
[2020-07-18] MEDS: DEXAMETHASONE SOD PHOS INJ 10 MG/1 ML VIAL IV SCH (11:06)
[2020-07-18] MEDS: ENOXAPARIN SODIUM INJ 120 MG/0.8 ML DISP.SYRIN SUBCUT SCH ×2 (11:06→21:02)
[2020-07-18] MEDS: REMDESIVIR 100 MG in NORMAL SALINE 250 ML IV SCH (11:06)
[2020-07-18] MEDS ORDERED: HALOPERIDOL LACTATE INJ 5 MG/1 ML VIAL IV PRN (15:51)
--- NOTE | 2020-07-18 16:04 | PDOC PROGRESS REPORT ---
Subjective Date:: 07/18/20 Subjective:: Patient remain on BiPAP support and does not tolerate been off to allow for eati ng. No nausea, vomiting, or diarrhea. Agitated and anxious. No chest pain. No fever or chills. Reason For Visit: ACUTE RESPIRATORY FAILURE WITH HYPOXIA, COVID-19 Physical Exam Vital Signs: Temp Pulse Resp BP Pulse Ox 97.5 F 101 H 39 H 110/65 96 07/18/20 11:27 07/18/20 13:00 07/18/20 12:00 07/18/20 13:00 07/18/20 12:00 Intake & Output 07/17/20 07/18/20 07/19/20 06:59 06:59 06:59 Intake Total 571 770 125 Output Total 425 550 Balance 146 220 125 Weight 110.7 kg 107.8 kg Physical Exam: General appearance: PRESENT: mild distress, remain on BiPAP support Head exam: PRESENT: atraumatic, normocephalic Eye exam: PRESENT: conjunctiva pink. ABSENT: pallor, sclera icterus Mouth exam: PRESENT: moist Respiratory exam: PRESENT: clear to auscultation pennie, decreased breath sounds Cardiovascular exam: PRESENT: irregular rhythm, +S1, +S2. ABSENT: diastolic murmur, systolic murmur GI/Abdominal exam: PRESENT: normal bowel sounds, soft. ABSENT: tenderness Extremities exam: ABSENT: pedal edema Neurological exam: PRESENT: alert, awake Psychiatric exam: PRESENT: agitated, anxious Skin exam: PRESENT: dry, warm Results Laboratory Results: 07/18/20 05:57 07/18/20 05:57 07/18/20 07/18/20 05:57 05:57 WBC 15.4 H RBC 4.30 L Hgb 13.2 L Hct 38.7 MCV 90 MCH 30.6 MCHC 34.0 RDW 15.0 H Plt Count 413 Seg Neutrophils % Not Reportable Sodium 140.3 Potassium 5.8 H Chloride 108 H Carbon Dioxide 23 Anion Gap 9 BUN 35 H Creatinine 1.01 Est GFR ( Amer) > 60 Glucose 186 H Calcium 8.6 Ferritin 587.00 H Total Bilirubin 0.6 AST 41 Alkaline Phosphatase 113 Total Protein 7.0 Albumin 3.3 L Triglycerides 160 H Cholesterol 158.35 LDL Cholesterol Direct 83 VLDL Cholesterol 32.0 H HDL Cholesterol 36 L 07/15/20 07/16/20 16:25 00:24 Creatine Kinase 504 H Troponin I < 0.012 NT-Pro-B Natriuret Pep 3450 H Impressions: Chest X-Ray 07/15/20 16:21 IMPRESSION: Ill-defined ground-glass opacification in both lungs. May represent an atypical infectious/ inflammatory process. Chest/Abdomen CTA 07/15/20 18:03 IMPRESSION: 1. There is no pulmonary embolus. There is no aortic aneurysm or dissection. 2. Extensive, slightly patchy ground-glass infiltrates bilaterally. Nonspecifi c finding. May indicate chronic interstitial changes or interstitial edema. Cannot exclude an atypical infectious/ inflammatory process. Assessment & Plan - Diagnosis (1) Pneumonia due to COVID-19 virus Is this a current diagnosis for this admission?: Yes (2) Hypoxemia requiring supplemental oxygen Is this a current diagnosis for this admission?: Yes (3) Atrial fibrillation with rapid ventricular response Is this a current diagnosis for this admission?: Yes (4) Diabetes mellitus type 2 in obese Is this a current diagnosis for this admission?: Yes (5) HTN (hypertension) Qualifiers: Hypertension type: essential hypertension Qualified Code(s): I10 - Essential (primary) hypertension Is this a current diagnosis for this admission?: Yes - Time Time Spent with patient: 25-34 minutes Level of Care: IMCU Medications reviewed and adjusted accordingly: Yes Anticipated discharge: Home with Homehealth Anticipated DC Timeframe: within 72 hours - Inpatient Certification Based on my medical assessment, after consideration of the patient's comorbidities, presenting symptoms, or acuity I expect that the services needed warrant INPATIENT care.: Yes I certify that my determination is in accordance with my understanding of Medicare's requirements for reasonable and necessary INPATIENT services [42 CFR 412.3e].: Yes Medical Necessity: Significant Comorbidiites Make Outpatient Treatment Too Risky, Need Close Monitoring Due to Risk of Patient Decompensation, Need For IV Fluids, Need For Continuous Telemetry Monitoring, Need for IV Antibiotics, Risk of Complication if Not Cared For in Hospital, Risk of Diagnosis Which Will Require Inpatient Eval/Care/Monitoring Post Hospital Care: D/C Club Waiter/Waitress Documentation - Plan Summary Plan Summary: Medication review and adjustment was done during this bedside evaluation. start on haloperidol 2mg IV q12 hours for agitation management. Obtain CBC with diff and CMP in am.
[2020-07-18] MEDS: MELATONIN 5 MG TABLET PO SCH (21:02)
[2020-07-19] MEDS: DILTIAZEM HCL/D5W 125 MG/125 ML RTUINJ IV PRN ×2 (00:05→11:05)
[2020-07-19 05:57] LABS: HEMATOCRIT 37.2 % (37.9-51.0); HEMOGLOBIN 12.8 g/dL (13.5-17.0); MEAN CORPUSCULAR HGB CONC 34.6 g/dL (32.0-36.0); MEAN CORPUSCULAR VOLUME 90 fl (80-97); PLATELET COUNT 376 10^3/uL (150-450); RED BLOOD COUNT 4.15 10^6/uL (4.35-5.55); RED CELL DISTRIBUTION WIDTH 15.4 % (11.5-14.0); WHITE BLOOD COUNT 15.3 10^3/uL (4.0-10.5)
[2020-07-19 06:27] LABS: ALBUMIN 3.3 g/dL (3.5-5.0); ALKALINE PHOSPHATASE 141 U/L (38-126); ANION GAP 11 (5-19); ASPARTATE AMINO TRANSFERASE 36 U/L (17-59); BILIRUBIN,DIRECT 0.2 mg/dL (0.0-0.4); BILIRUBIN,TOTAL 0.5 mg/dL (0.2-1.3); BLOOD UREA NITROGEN 37 mg/dL (7-20); CALCIUM 8.6 mg/dL (8.4-10.2); CARBON DIOXIDE 24 mmol/L (22-30); CHLORIDE 109 mmol/L (98-107); GLUCOSE 211 mg/dL (75-110); POTASSIUM 5.4 mmol/L (3.6-5.0); TOTAL PROTEIN 6.8 g/dL (6.3-8.2)
[2020-07-19 07:12] LABS: APPEARANCE,URINE SLIGHTLY-CLOUDY; BILIRUBIN,URINE NEGATIVE (NEGATIVE); COLOR,URINE YELLOW; GLUCOSE, URINE NEGATIVE (NEGATIVE); KETONES,URINE 20 mg/dL (NEGATIVE); LEUKOCYTE ESTERASE,URINE NEGATIVE (NEGATIVE); NITRITE,URINE NEGATIVE (NEGATIVE); PROTEIN,URINE 30 mg/dL (NEGATIVE); URINE SPECIFIC GRAVITY 1.025; UROBILINOGEN,URINE NEGATIVE mg/dL (<2.0)
--- NOTE | 2020-07-19 10:12 | CDI QUERY ---
<BRIEN TAYLOR - Last Filed: 07/19/20 10:11> CDI Query CDI Review: We are seeking further clarification of documentation to reflect the severity of illness of your patient. Per Progress Notes: Atrial fibrillation with rapid ventricular response Is this a current diagnosis for this admission?: Yes Based on your medical judgement, can you further clarify in the Progress Notes and the Discharge Summary if the Atrial Fibrillation can be further specified: Persistent Atrial fibrillation Chronic (Permanent) Atrial fibrillation Other Unable to determine Thank you for your consideration. MICHAEL GarciaN RN Clinical Accounting Systems Manager Physician Advisor [email or web address] <GISELLA PADRON - Last Filed: 07/19/20 10:57> CDI Query Agree with Query: Yes - This is newly diagnosed and he has revert to normal sinus rhythm. I will agree with undertermined classification due to lack of knowledge regardin duration.
[2020-07-19] MEDS: FAMOTIDINE 20 MG TABLET PO SCH ×2 (10:27→22:45)
[2020-07-19] MEDS: ENOXAPARIN SODIUM INJ 120 MG/0.8 ML DISP.SYRIN SUBCUT SCH (10:27)
[2020-07-19] MEDS: CHOLECALCIFEROL (D3) 1,000 UNIT (25 MCG) TABLET PO SCH (10:28)
[2020-07-19] MEDS: DOCUSATE SODIUM 100 MG CAPSULE PO SCH (10:28)
[2020-07-19] MEDS: ZINC SULFATE 220 MG CAPSULE PO SCH (10:28)
[2020-07-19] MEDS: DEXAMETHASONE SOD PHOS INJ 10 MG/1 ML VIAL IV SCH (10:28)
[2020-07-19] MEDS: ASPIRIN 81 MG TABLET, ENT COATED PO SCH (10:28)
[2020-07-19] MEDS: INSULIN LISPRO 100 UNIT/ML 3 ML VIAL SUBCUT SCH ×4 (10:28→23:02)
[2020-07-19] MEDS: AZITHROMYCIN 250 MG TABLET PO SCH (10:31)
[2020-07-19] MEDS: ASCORBIC ACID 500 MG TABLET PO SCH ×2 (10:34→17:43)
[2020-07-19] MEDS: REMDESIVIR 100 MG in NORMAL SALINE 250 ML IV SCH (13:22)
[2020-07-19 14:47] LABS: ARTERIAL BLOOD BASE EXCESS -1.4 mmol/L; ARTERIAL BLOOD FIO2 95%; ARTERIAL BLOOD H2CO3 1.05 mmol/L (1.05-1.35); ARTERIAL BLOOD HCO3 22.4 mmol/L (20-24); ARTERIAL BLOOD O2 SATURATION 90.1 % (94-98); ARTERIAL BLOOD PH 7.42 (7.35-7.45); ARTERIAL BLOOD TOTAL CO2 23.5 mmol/L (23-27)
--- NOTE | 2020-07-19 19:45 | PDOC PROGRESS REPORT ---
Subjective Date:: 07/19/20 Subjective:: Patient was admitted over the weekend for the management of severe acute hypoxic respiratory failure due to SARS-CoV-2 infection, proximal atrial fibrillation, without the NIPPV the oxygen saturation dropped to the 60s, He continues to require noninvasive positive pressure ventilation to maintain adequate oxygen saturation. He was seen by the bedside is awake and responsive on BiPAP Reason For Visit: ACUTE RESPIRATORY FAILURE WITH HYPOXIA, COVID-19 Physical Exam Vital Signs: Temp Pulse Resp BP Pulse Ox 98.8 F 118 H 33 H 145/78 H 95 07/19/20 15:39 07/19/20 18:00 07/19/20 16:07 07/19/20 18:00 07/19/20 16:07 Intake & Output 07/18/20 07/19/20 07/20/20 06:59 06:59 06:59 Intake Total 770 900 620 Output Total 550 60 Balance 220 840 620 Weight 107.8 kg 107.2 kg General appearance: PRESENT: other - Patient on BiPAP Eye exam: PRESENT: PERRLA Respiratory exam: PRESENT: rhonchi Cardiovascular exam: PRESENT: +S1, +S2 GI/Abdominal exam: PRESENT: soft Neurological exam: PRESENT: alert Results Laboratory Results: 07/19/20 05:42 07/19/20 05:42 07/19/20 07/19/20 07/19/20 05:42 05:42 06:45 WBC 15.3 H RBC 4.15 L Hgb 12.8 L Hct 37.2 L MCV 90 MCH 31.0 MCHC 34.6 RDW 15.4 H Plt Count 376 Carbonic Acid HCO3/H2CO3 Ratio ABG pH ABG pCO2 ABG pO2 ABG HCO3 ABG O2 Saturation ABG Base Excess FiO2 Sodium 143.9 Potassium 5.4 H Chloride 109 H Carbon Dioxide 24 Anion Gap 11 BUN 37 H Creatinine 1.04 Est GFR ( Amer) > 60 Glucose 211 H Calcium 8.6 Total Bilirubin 0.5 AST 36 Alkaline Phosphatase 141 H Total Protein 6.8 Albumin 3.3 L Urine Color YELLOW Urine Appearance SLIGHTLY-CLOUDY Urine pH 6.0 Ur Specific [place] 1.025 Urine Protein 30 H Urine Glucose (UA) NEGATIVE Urine Ketones 20 H Urine Blood NEGATIVE Urine Nitrite NEGATIVE Ur Leukocyte Esterase NEGATIVE Urine WBC (Auto) 1 Urine RBC (Auto) 1 Blood Type 07/19/20 07/19/20 14:20 17:32 WBC RBC Hgb Hct MCV MCH MCHC RDW Plt Count Carbonic Acid 1.05 HCO3/H2CO3 Ratio 21:1 ABG pH 7.42 ABG pCO2 35.0 ABG pO2 56.0 L ABG HCO3 22.4 ABG O2 Saturation 90.1 L ABG Base Excess -1.4 FiO2 95% Sodium Potassium Chloride Carbon Dioxide Anion Gap BUN Creatinine Est GFR ( Amer) Glucose Calcium Total Bilirubin AST Alkaline Phosphatase Total Protein Albumin Urine Color Urine Appearance Urine pH Ur Specific [place] Urine Protein Urine Glucose (UA) Urine Ketones Urine Blood Urine Nitrite Ur Leukocyte Esterase Urine WBC (Auto) Urine RBC (Auto) Blood Type O NEGATIVE 07/15/20 07/16/20 16:25 00:24 Creatine Kinase 504 H Troponin I < 0.012 NT-Pro-B Natriuret Pep 3450 H Impressions: Chest X-Ray 07/15/20 16:21 IMPRESSION: Ill-defined ground-glass opacification in both lungs. May represent an atypical infectious/ inflammatory process. Chest/Abdomen CTA 07/15/20 18:03 IMPRESSION: 1. There is no pulmonary embolus. There is no aortic aneurysm or dissection. 2. Extensive, slightly patchy ground-glass infiltrates bilaterally. Nonspecific finding. May indicate chronic interstitial changes or interstitial edema. Cannot exclude an atypical infectious/ inflammatory process. Assessment & Plan - Diagnosis (1) Acute hypoxemic respiratory failure Is this a current diagnosis for this admission?: Yes Plan: Patient with acute hypoxemic respiratory failure presently on noninvasive positive pressure ventilation BiPAP to maintain adequate oxygen saturation, will continue present setting (2) Pneumonia due to COVID-19 virus Is this a current diagnosis for this admission?: Yes Plan: He has pneumonia due to Covid, continue present treatment with remdesivir, dexamethasone (3) Paroxysmal atrial fibrillation with rapid ventricular response Is this a current diagnosis for this admission?: Yes Plan: He has Paroxysmal atrial fibrillation with rapid ventricular response, presently on IV Cardizem,Start Eliquis for CVA prophylaxis, patient will require 2D echo to be done once is stable enough, he is presently requiring BiPAP continuously, cannot come off , BiPAP at this moment (4) Type 2 diabetes mellitus with diabetic polyneuropathy Qualifiers: Diabetes mellitus fpc insulin use: without terminal press operator use Qualified Code(s): E11.42 - Type 2 diabetes mellitus with diabetic polyneuropathy Is this a current diagnosis for this admission?: Yes Plan: Blood sugar is elevated because of steroid, this is expected - Time Time Spent with patient: 35 or more minutes Total Critical Time (Minutes): 60 Level of Care: IMCU Medications reviewed and adjusted accordingly: Yes Anticipated discharge: Home Anticipated DC Timeframe: Other - Inpatient Certification Based on my medical assessment, after consideration of the patient's comorbidities, presenting symptoms, or acuity I expect that the services needed warrant INPATIENT care.: Yes I certify that my determination is in accordance with my understanding of Medicare's requirements for reasonable and necessary INPATIENT services [42 CFR 412.3e].: Yes
[2020-07-19] MEDS: APIXABAN 5 MG TABLET PO SCH (20:51)
--- NOTE | 2020-07-19 21:12 | RADIOLOGY REPORT (SQ) ---
AP Portable chest: 07/19/2020 8:11 PM MELTING [employer]PER[employer]OR History: 60-year old patient with concern for pneumonia. Comparison: Chest radiograph performed 07/15/2020. Findings: The cardiomediastinal silhouette is enlarged. No pneumothorax is seen. There are diffuse, hazy bilateral airspace opacities present. These are most pronounced at the right lung base. There is blunting of the costophrenic angle suggesting trace bilateral effusions. Impression: There are diffuse hazy airspace opacities, right greater than left. These are similar to prior imaging.
[2020-07-19 22:45] LABS: INTERNATIONAL RATION (INR) 1.56; PROTHROMBIN TIME 18.8 SEC (11.4-15.4)
[2020-07-19] MEDS: MELATONIN 5 MG TABLET PO SCH (22:45)
[2020-07-20] MEDS: DILTIAZEM HCL/D5W 125 MG/125 ML RTUINJ IV PRN ×2 (00:10→12:51)
[2020-07-20 06:43] LABS: ARTERIAL BLOOD BASE EXCESS -1.9 mmol/L; ARTERIAL BLOOD H2CO3 1.24 mmol/L (1.05-1.35); ARTERIAL BLOOD HCO3 23.3 mmol/L (20-24); ARTERIAL BLOOD O2 SATURATION 86.1 % (94-98); ARTERIAL BLOOD PCO2 41.2 mmHg (35-45); ARTERIAL BLOOD PH 7.37 (7.35-7.45); ARTERIAL BLOOD PO2 52.3 mmHg (80-100); ARTERIAL BLOOD TOTAL CO2 24.5 mmol/L (23-27)
[2020-07-20 06:44] LABS: ARTERIAL BLOOD FIO2 100%
[2020-07-20] MEDS ORDERED: MORPHINE SULFATE 10 MG/ML INJ IV PRN (08:05)
[2020-07-20] MEDS: INSULIN LISPRO 100 UNIT/ML 3 ML VIAL SUBCUT SCH ×4 (08:22→21:14)
[2020-07-20] MEDS: DEXAMETHASONE SOD PHOS INJ 10 MG/1 ML VIAL IV SCH (11:00)
[2020-07-20] MEDS: FAMOTIDINE 20 MG TABLET PO SCH (11:01)
[2020-07-20] MEDS: APIXABAN 5 MG TABLET PO SCH (11:01)
[2020-07-20] MEDS: DOCUSATE SODIUM 100 MG CAPSULE PO SCH (11:01)
[2020-07-20] MEDS: ASCORBIC ACID 500 MG TABLET PO SCH (11:02)
[2020-07-20] MEDS: ZINC SULFATE 220 MG CAPSULE PO SCH (11:02)
[2020-07-20] MEDS: CHOLECALCIFEROL (D3) 1,000 UNIT (25 MCG) TABLET PO SCH (11:02)
[2020-07-20] MEDS: AZITHROMYCIN 250 MG TABLET PO SCH (11:02)
[2020-07-20] MEDS: REMDESIVIR 100 MG in NORMAL SALINE 250 ML IV SCH (11:07)
--- NOTE | 2020-07-20 13:42 | Progress Note ---
Provider Note Provider Note: Critical Care Note: Nursing noted the patient to be in asystole on telemetry. Upon arrival, he was found to have BiPAP tubing detached from mask (presumably he became tangled or confused and accidentally detached the tubing). Nursing confirmed patient was pulseless and apneic. CODE Blue called and ACLS initiated. Responded to Code Blue. 3 rounds of epinephrine were provided with appropriate CPR and ventilation provided via BVM. ROSC achieved; initial rhythm appeared to be sinus mony. ICU team to bedside. Intubated by Dr. Gleason via gluide scope; 7.5 and 25 at teeth. Good color change. Air movement auscultated all mclean. ICU team then had to emergently respond to a separate code in another area of [facility]. Patient's PCP/Attending, Dr. Phillips, was updated on code and current clinical status. Initial CXR, EKG, NG tube, and Labs ordered. Patient was transferred to ED (ICU overflow) with care transferred to the entertainer & comic service, Dr. Gleason attending. Critical Care time: 35 min
[2020-07-20] MEDS ORDERED: PHARMACY COMMUNICATION ORDER MC NR (13:45)
[2020-07-20] MEDS ORDERED: EPINEPHRINE INJ/PF 1 MG/1 ML AMPULE ONE ×7 (14:38→21:51)
--- NOTE | 2020-07-20 14:43 | RADIOLOGY REPORT (SQ) ---
EXAM DESCRIPTION: CHEST SINGLE VIEW IMAGES COMPLETED DATE/TIME: 07/20/2020 2:23 pm REASON FOR STUDY: ET tube placement; post code COMPARISON: 07/19/2020 NUMBER OF VIEWS: One view. TECHNIQUE: Single frontal radiographic image of the chest acquired. LIMITATIONS: None. FINDINGS: LUNGS AND PLEURA: Diffuse bilateral airspace disease. No pneumothorax. MEDIASTINUM AND HEART: Stable heart size and mediastinal structures. SUPPORT DEVICES: Endotracheal tube tip between thoracic inlet and julissa. Nasogastric tube extends i nferior to the field of view. BONY STRUCTURES: No acute findings. HARDWARE: None. OTHER: No other significant finding. IMPRESSION: Good position of endotracheal tube. No pneumothorax. Reading location - IP/workstation name: [email or web address]
[2020-07-20 14:44] LABS: ALBUMIN 2.4 g/dL (3.5-5.0); ALKALINE PHOSPHATASE 102 U/L (38-126); ASPARTATE AMINO TRANSFERASE 363 U/L (17-59); BILIRUBIN,DIRECT 0.3 mg/dL (0.0-0.4); BILIRUBIN,TOTAL 0.5 mg/dL (0.2-1.3); BLOOD UREA NITROGEN 37 mg/dL (7-20); GLUCOSE 333 mg/dL (75-110); PHOSPHORUS 10.1 mg/dL (2.5-4.5); TOTAL PROTEIN 5.3 g/dL (6.3-8.2)
[2020-07-20] MEDS ORDERED: EPINEPHRINE INJ 1 MG/10 ML DISP.SYRIN ONE ×4 (14:46→21:50)
[2020-07-20 14:47] LABS: CARBON DIOXIDE 14 mmol/L (22-30); CHLORIDE 111 mmol/L (98-107)
[2020-07-20 14:49] LABS: ANION GAP 21 (5-19); POTASSIUM 6.7 mmol/L (3.6-5.0)
--- NOTE | 2020-07-20 14:51 | RADIOLOGY REPORT (SQ) ---
EXAM DESCRIPTION: KUB/ABDOMEN (SINGLE VIEW) IMAGES COMPLETED DATE/TIME: 07/20/2020 2:24 pm REASON FOR STUDY: Check Placement of NG Tube COMPARISON: None. NUMBER OF VIEWS: One view. TECHNIQUE: Supine radiographic image of the abdomen acquired. LIMITATIONS: None. FINDINGS: BOWEL GAS PATTERN: Normal bowel gas pattern. No dilated loops. CALCIFICATIONS: No suspicious calcifications. SOFT TISSUES: No gross mass or suggestion of organomegaly. HARDWARE: None in the abdomen. BONES: No acute fracture. No worrisome bone lesions. OTHER: Nasogastric tube tip overlies the stomach. IMPRESSION: Nasogastric tube tip in the stomach. TECHNICAL DOCUMENTATION: JOB ID: [id number] 2010 [employer]- All Rights Reserved Reading location - IP/workstation name: [email or web address]
[2020-07-20 15:03] LABS: ARTERIAL BLOOD BASE EXCESS -18.4 mmol/L; ARTERIAL BLOOD H2CO3 1.75 mmol/L (1.05-1.35); ARTERIAL BLOOD HCO3 13.1 mmol/L (20-24); ARTERIAL BLOOD O2 SATURATION 64.6 % (94-98); ARTERIAL BLOOD TOTAL CO2 14.9 mmol/L (23-27)
[2020-07-20 15:06] LABS: ARTERIAL BLOOD FIO2 100%; ARTERIAL BLOOD PH 6.97 (7.35-7.45)
[2020-07-20 15:10] LABS: C-REACTIVE PROTEIN 263.8 mg/L (<10.0)
--- NOTE | 2020-07-20 15:27 | RADIOLOGY REPORT (SQ) ---
EXAM DESCRIPTION: CHEST SINGLE VIEW IMAGES COMPLETED DATE/TIME: 07/20/2020 3:19 pm REASON FOR STUDY: post line placement COMPARISON: Earlier the same day. NUMBER OF VIEWS: One view. TECHNIQUE: Single frontal radiographic image of the chest acquired. LIMITATIONS: None. FINDINGS: Interval placement of a right-sided central line with tip overlying cavoatrial junction. Otherwise no significant change. IMPRESSION: Satisfactory position of right-sided central line. No pneumothorax. Reading location - IP/workstation name: [email or web address]
[2020-07-20] MEDS ORDERED: GLUCAGON,HUMAN RECOMB 1 MG INJ SUBCUT PRN (15:29)
[2020-07-20] MEDS ORDERED: RINGERS SOLUTION,LACTATED 1,000 ML IV PRN (15:29)
[2020-07-20] MEDS ORDERED: DEXTROSE 40% GEL 15 GM TUBE PO PRN ×2 (15:29)
[2020-07-20] MEDS ORDERED: DEXTROSE 50%-WATER 25 GM/50 ML DISP.SYRIN IV PRN ×2 (15:29)
[2020-07-20] MEDS ORDERED: MAGNESIUM HYDROXIDE SUSP 30 ML UDCUP NG PRN (15:30)
[2020-07-20] MEDS ORDERED: ACETAMINOPHEN 325 MG TABLET NG PRN (15:30)
[2020-07-20] MEDS ORDERED: DEXTROSE 5%-WATER 250 ML with EPINEPHRINE/PF 1 MG IV PRN ×2 (15:36)
--- NOTE | 2020-07-20 16:24 | PDOC CRITICAL CARE PROG REPORT ---
General Date:: 07/20/20 ICU Day:: 0 Hospital Day:: 4 Resuscitation Status: Full Code Events in the past 12 to 24 Hours:: Said to be having oxygen needs. Review of systems relevant to events:: Pulmonary Reason for ICU Addmission:: Evaluation - Medications: Medications reviewed and adjusted accordingly: Yes Vasopressors:: None Sedation:: None Physical Exam Vital Signs: Temp Pulse Resp BP Pulse Ox 97.9 F 124 H 42 H 144/89 H 87 L 07/20/20 12:00 07/20/20 13:00 07/20/20 09:30 07/20/20 13:00 07/20/20 09:30 Intake & Output 07/19/20 07/20/20 07/21/20 06:59 06:59 06:59 Intake Total 900 1966 375 Output Total 60 50 Balance 840 1916 375 Weight 107.2 kg 106.1 kg Weight/Height Weight 106.1 kg Height 5 ft 11 in General appearance: PRESENT: cooperative, mild distress, obese Head exam: PRESENT: atraumatic, normocephalic Eye exam: PRESENT: conjunctiva pink, EOMI, PERRLA. ABSENT: scleral icterus Ear exam: PRESENT: normal external ear exam Mouth exam: PRESENT: moist, tongue midline Respiratory exam: PRESENT: clear to auscultation pennie, rhonchi. ABSENT: rales, wheezes Cardiovascular exam: PRESENT: irregular rhythm, tachycardia. ABSENT: diastolic murmur, rubs, systolic murmur GI/Abdominal exam: PRESENT: normal bowel sounds, soft. ABSENT: distended, guarding, mass, organolmegaly, rebound, tenderness Rectal exam: PRESENT: deferred Extremities exam: PRESENT: full ROM. ABSENT: calf tenderness, clubbing, pedal edema Musculoskeletal exam: PRESENT: normal inspection Neurological exam: PRESENT: alert, awake, oriented to person, oriented to place, oriented to time, oriented to situation, CN II-XII grossly intact Psychiatric exam: PRESENT: appropriate affect, normal mood. ABSENT: homicidal ideation, suicidal ideation Skin exam: PRESENT: dry, intact, warm. ABSENT: cyanosis, rash Tubes/Lines: PRESENT: Other - Bipap. Laboratory/Radiographs Laboratory Results: 07/20/20 14:05 07/20/20 14:05 07/19/20 07/20/20 07/20/20 17:32 06:30 14:05 WBC Cancelled RBC Cancelled Hgb Cancelled Hct Cancelled MCV Cancelled MCH Cancelled MCHC Cancelled RDW Cancelled Plt Count Cancelled Seg Neutrophils % Cancelled Carbonic Acid 1.24 HCO3/H2CO3 Ratio 18:1 ABG pH 7.37 ABG pCO2 41.2 ABG pO2 52.3 L ABG HCO3 23.3 ABG O2 Saturation 86.1 L ABG Base Excess -1.9 FiO2 100% Sodium Potassium Chloride Carbon Dioxide Anion Gap BUN Creatinine Est GFR ( Amer) Glucose Calcium Phosphorus Magnesium Ferritin Total Bilirubin AST Alkaline Phosphatase C-Reactive Protein Total Protein Albumin Blood Type O NEGATIVE 07/20/20 07/20/20 14:05 14:56 WBC RBC Hgb Hct MCV MCH MCHC RDW Plt Count Seg Neutrophils % Carbonic Acid 1.75 H HCO3/H2CO3 Ratio 7:1 ABG pH 6.97 L* ABG pCO2 58.0 H ABG pO2 51.0 L ABG HCO3 13.1 L ABG O2 Saturation 64.6 L ABG Base Excess -18.4 FiO2 100% Sodium 145.7 H Potassium 6.7 H* Chloride 111 H Carbon Dioxide 14 L Anion Gap 21 H BUN 37 H Creatinine 1.32 H Est GFR ( Amer) > 60 Glucose 333 H Calcium 8.0 L Phosphorus 10.1 H Magnesium 3.5 H Ferritin 2490.00 H Total Bilirubin 0.5 AST 363 H Alkaline Phosphatase 102 C-Reactive Protein 263.8 H Total Protein 5.3 L Albumin 2.4 L Blood Type 07/15/20 07/16/20 16:25 00:24 Creatine Kinase 504 H Troponin I < 0.012 NT-Pro-B Natriuret Pep 3450 H Impressions: Chest/Abdomen CTA 07/15/20 18:03 IMPRESSION: 1. There is no pulmonary embolus. There is no aortic aneurysm or dissection. 2. Extensive, slightly patchy ground-glass infiltrates bilaterally. Nonspecific finding. May indicate chronic interstitial changes or interstitial edema. Cannot exclude an atypical infectious/ inflammatory process. Chest X-Ray 07/20/20 00:00 IMPRESSION: Satisfactory position of right-sided central line. No pneumothorax. KUB X-Ray 07/20/20 13:38 IMPRESSION: Nasogastric tube tip in the stomach. All labs, radiographs, diagnostic studies and EKGs were personally reviewed: Yes In addition, reports of radiographic and diagnostic studies were read: Yes Assessment and Plan - Diagnosis (1) Lab test positive for detection of COVID-19 virus Is this a current diagnosis for this admission?: Yes Plan: He is showing all the typical signs of Covid PNA. He is tachypneic to 30. O2 saturations are 88-91% on 100% bipap. He is fully awake and claims not to have trouble breathing although he does look somewhat labored. The current literature on these Covid patients is that intubation should be reserved for obtundation, hypercarbia which may be a sign of impending respiratory failure. Simple hypoxia as frightening as this is is not an obvious reason for intubation. At this point I would not change his therapy. Keep on the IMC. However should he get obtunded or hypercarbic then we would certainly reasses for intubation and ICU transfer. (2) Acute hypoxemic respiratory failure Is this a current diagnosis for this admission?: Yes Plan: As above. If possible self-proning can at times effect improvement in hypoxia. 12-18 hours proned and the rest supine. (3) Diabetes mellitus type 2 in obese Is this a current diagnosis for this admission?: Yes Plan: This is a recognized risk factor for COVID mortality. (4) HTN (hypertension) Qualifiers: Hypertension type: essential hypertension Qualified Code(s): I10 - Essential (primary) hypertension Is this a current diagnosis for this admission?: Yes Plan: Another risk factor. (5) Paroxysmal atrial fibrillation with rapid ventricular response Is this a current diagnosis for this admission?: Yes Plan: This is likely a consequence of Covid PNA. This will likely not resolve until his lungs improve. (6) ARDS (adult respiratory distress syndrome) Is this a current diagnosis for this admission?: Yes Plan: COVID has also redefined ARDS. In 2015 the [place] criteria established ARDS as bilateral fluffy infiltrates of a non cardiac cause. A PaO2/FIO2 ratio of under 200. With COVID there is a hypoxia that is out of proportion to CXR findings as there is with him. He has a PaO2/FIO2 ratio of 52 meeting criteria for covid ARDS. Intubation it should be noted does not always help Covid hypoxia as I can attest personally. Plan Summary: Continue treatment as is and reconsult for mental status changes, hypercarbia or worsening refractory hypoxia. Critical Time Critical Time (minutes): 40 Level of Care: IMCU Anticipated discharge: Home Anticipated DC Timeframe: Other -: 1. The care of a critical patient is a dynamic process. This note is a rep resentative synopsis but static in nature. The timeframe for treatments given in order is not necessarily the actual time these treatments may have been done. 2. This patient requires critical care secondary to ongoing requirements for therapy not offered or safe outside the critical care environment. Transfer to a lower level of care will result in altered life or limb morbidity and mortality. 3. Multidisciplinary rounds completed. 4. ABCDE bundle addressed.
[2020-07-20] MEDS ORDERED: VASOPRESSIN INJ 20 UNIT/1 ML VIAL ONE (17:19)
[2020-07-20 17:31] LABS: HEMATOCRIT 34.3 % (37.9-51.0); PLATELET COUNT 355 10^3/uL (150-450); RED BLOOD COUNT 3.55 10^6/uL (4.35-5.55); RED CELL DISTRIBUTION WIDTH 16.6 % (11.5-14.0); WHITE BLOOD COUNT 13.9 10^3/uL (4.0-10.5)
[2020-07-20] MEDS ORDERED: NORMAL SALINE 1000 ML 1,000 ML IV PRN (17:31)
[2020-07-20 17:45] LABS: MEAN CORPUSCULAR VOLUME 97 fl (80-97)
[2020-07-20 17:49] LABS: ABSOLUTE LYMPHOCYTES# (MANUAL) 1.1 10^3/uL (0.5-4.7); ABSOLUTE MONOCYTES # (MANUAL) 0.4 10^3/uL (0.1-1.4); BAND NEUTROPHILS % (MANUAL) 6 % (3-5); BASOPHILS % (MANUAL) 0 % (0-2); EOSINOPHILS % (MANUAL) 0 % (0-6); LYMPHOCYTES % (MANUAL) 7 % (13-45); METAMYELOCYTES % (MANUAL) 1 % (0-1); MONOCYTES % (MANUAL) 3 % (3-13); SEGMENTED NEUTROPHILS % (MAN) 82 % (42-78); TOTAL CELLS COUNTED 100
[2020-07-20 17:53] LABS: TOXIC GRANULATION SLIGHT
[2020-07-20 17:54] LABS: ANISOCYTOSIS 1+; OVALOCYTES SLIGHT; PLATELET COMMENT ADEQUATE; POIKILOCYTOSIS SLIGHT
[2020-07-20] MEDS: DEXTROSE 5%-WATER 250 ML with VASOPRESSIN 100 UNIT IV PRN ×2 (19:00)
--- NOTE | 2020-07-20 19:04 | PDOC PROGRESS REPORT ---
Subjective Date:: 07/20/20 Subjective:: Patient with Covid pneumonia with profound hypoxemia on noninvasive positive pre ssure ventilation, and seen by the bedside, is awake respond to verbal command, He subsequently apparently developed asystolic according to the nurses note and CODE BLUE was called, patient was intubated and now transferred to ICU Reason For Visit: COVID PNA,CARDIAC ARREST Physical Exam Vital Signs: Temp Pulse Resp BP Pulse Ox 97.9 F 85 32 H 76/47 L 88 L 07/20/20 12:00 07/20/20 16:30 07/20/20 16:30 07/20/20 16:30 07/20/20 16:30 Intake & Output 07/19/20 07/20/20 07/21/20 06:59 06:59 06:59 Intake Total 900 1966 375 Output Total 60 50 0 Balance 840 1916 375 Weight 107.2 kg 106.1 kg General appearance: PRESENT: severe distress Eye exam: PRESENT: PERRLA Respiratory exam: PRESENT: rhonchi Cardiovascular exam: PRESENT: +S1, +S2 GI/Abdominal exam: PRESENT: soft Results Laboratory Results: 07/20/20 17:14 07/20/20 14:05 07/19/20 07/20/20 07/20/20 17:32 06:30 14:05 WBC Cancelled RBC Cancelled Hgb Cancelled Hct Cancelled MCV Cancelled MCH Cancelled MCHC Cancelled RDW Cancelled Plt Count Cancelled Seg Neutrophils % Cancelled Carbonic Acid 1.24 HCO3/H2CO3 Ratio 18:1 ABG pH 7.37 ABG pCO2 41.2 ABG pO2 52.3 L ABG HCO3 23.3 ABG O2 Saturation 86.1 L ABG Base Excess -1.9 FiO2 100% Sodium Potassium Chloride Carbon Dioxide Anion Gap BUN Creatinine Est GFR ( Amer) Glucose Calcium Phosphorus Magnesium Ferritin Total Bilirubin AST Alkaline Phosphatase C-Reactive Protein Total Protein Albumin Blood Type O NEGATIVE 07/20/20 07/20/20 07/20/20 14:05 14:56 17:14 WBC 13.9 H RBC 3.55 L Hgb 11.0 L Hct 34.3 L MCV 97 D MCH 31.0 MCHC 32.0 RDW 16.6 H Plt Count 355 Seg Neutrophils % Not Reportable Carbonic Acid 1.75 H HCO3/H2CO3 Ratio 7:1 ABG pH 6.97 L* ABG pCO2 58.0 H ABG pO2 51.0 L ABG HCO3 13.1 L ABG O2 Saturation 64.6 L ABG Base Excess -18.4 FiO2 100% Sodium 145.7 H Potassium 6.7 H* Chloride 111 H Carbon Dioxide 14 L Anion Gap 21 H BUN 37 H Creatinine 1.32 H Est GFR ( Amer) > 60 Glucose 333 H Calcium 8.0 L Phosphorus 10.1 H Magnesium 3.5 H Ferritin 2490.00 H Total Bilirubin 0.5 AST 363 H Alkaline Phosphatase 102 C-Reactive Protein 263.8 H Total Protein 5.3 L Albumin 2.4 L Blood Type 07/15/20 07/16/20 16:25 00:24 Creatine Kinase 504 H Troponin I < 0.012 NT-Pro-B Natriuret Pep 3450 H Impressions: Chest/Abdomen CTA 07/15/20 18:03 IMPRESSION: 1. There is no pulmonary embolus. There is no aortic aneurysm or dissection. 2. Extensive, slightly patchy ground-glass infiltrates bilaterally. Nonspeci fic finding. May indicate chronic interstitial changes or interstitial edema. Cannot exclude an atypical infectious/ inflammatory process. Chest X-Ray 07/20/20 00:00 IMPRESSION: Satisfactory position of right-sided central line. No pneumothorax. KUB X-Ray 07/20/20 13:38 IMPRESSION: Nasogastric tube tip in the stomach. Assessment & Plan - Diagnosis (1) Acute hypoxemic respiratory failure Is this a current diagnosis for this admission?: Yes Plan: Patient presently on NIPPV, developed asystolic intubated now transferred to ICU (2) Pneumonia due to COVID-19 virus Is this a current diagnosis for this admission?: Yes Plan: He has pneumonia due to Covid, continue present treatment with remdesivir, dexamethasone (3) Paroxysmal atrial fibrillation with rapid ventricular response Is this a current diagnosis for this admission?: Yes Plan: Continue Cardizem infusion (4) Type 2 diabetes mellitus with diabetic polyneuropathy Qualifiers: Diabetes mellitus detention insulin use: without technician terminal and repeater use Qualified Code(s): E11.42 - Type 2 diabetes mellitus with diabetic polyneuropathy Is this a current diagnosis for this admission?: Yes Plan: Blood sugar is elevated because of steroid, this is expected - Time Time Spent with patient: 35 or more minutes Level of Care: IMCU Medications reviewed and adjusted accordingly: Yes Anticipated discharge: Home - Inpatient Certification Based on my medical assessment, after consideration of the patient's comorbidities, presenting symptoms, or acuity I expect that the services needed warrant INPATIENT care.: Yes I certify that my determination is in accordance with my understanding of Medicare's requirements for reasonable and necessary INPATIENT services [42 CFR 412.3e].: Yes
[2020-07-20 20:09] LABS: ARTERIAL BLOOD BASE EXCESS -24.2 mmol/L; ARTERIAL BLOOD H2CO3 1.65 mmol/L (1.05-1.35); ARTERIAL BLOOD HCO3 9.3 mmol/L (20-24); ARTERIAL BLOOD O2 SATURATION 50.6 % (94-98); ARTERIAL BLOOD PCO2 54.7 mmHg (35-45); ARTERIAL BLOOD PO2 46.4 mmHg (80-100)
[2020-07-20 20:11] LABS: ARTERIAL BLOOD PH 6.85 (7.35-7.45)
[2020-07-20 20:12] LABS: ARTERIAL BLOOD FIO2 100%
[2020-07-20] MEDS ORDERED: SODIUM BICARBONATE 8.4% INJ 50 MEQ/50 ML DISP.SYRIN ONE ×3 (20:12→20:49)
[2020-07-20] MEDS ORDERED: SODIUM BICARBONATE 8.4% INJ 50 MEQ/50 ML DISP.SYRIN IV ONE (20:14)
[2020-07-20] MEDS: DEXTROSE 5%-WATER 1000 ML 1,000 ML with SODIUM BICARBONATE 150 MEQ IV PRN ×2 (20:20)
[2020-07-20] MEDS: DEXTROSE 5%-WATER 250 ML with EPINEPHRINE/PF 2 MG IV PRN ×8 (20:45→23:00)
[2020-07-20] MEDS ORDERED: NOREPINEPHRINE BITARTRATE INJ/PF 4 MG/4 ML SDV IV ONE (20:57)
[2020-07-20] MEDS: DEXTROSE 5%-WATER 250 ML with NOREPINEPHRINE BITARTRATE 4 MG IV PRN ×2 (21:08)
[2020-07-20] MEDS: MELATONIN 5 MG TABLET NG SCH (21:11)
[2020-07-20] MEDS: FAMOTIDINE INJ/PF 20 MG/2 ML SDV IV SCH (21:13)
[2020-07-20] MEDS: APIXABAN 5 MG TABLET NG SCH (21:15)
[2020-07-20] MEDS: ASCORBIC ACID 500 MG TABLET NG SCH (21:16)
[2020-07-20] MEDS ORDERED: FAMOTIDINE 20 MG TABLET NG SCH (22:00)
[2020-07-20] MEDS ORDERED: HEPARIN SOD (PORCINE) 5,000 UNIT/ML 1 ML VIAL SUBCUT SCH (22:00)
[2020-07-21] MEDS: DEXTROSE 5%-WATER 250 ML with EPINEPHRINE/PF 2 MG IV PRN ×18 (00:09→09:10)
[2020-07-21] MEDS ORDERED: NORMAL SALINE 1000 ML 1,000 ML IV ONE (01:30)
[2020-07-21] MEDS ORDERED: SODIUM BICARBONATE 8.4% INJ 50 MEQ/50 ML DISP.SYRIN IV ONE (01:30)
[2020-07-21] MEDS ORDERED: EPINEPHRINE INJ 1 MG/10 ML DISP.SYRIN IV ONE (01:30)
[2020-07-21] MEDS ORDERED: RINGERS SOLUTION,LACTATED 1,000 ML IV ONE (01:30)
[2020-07-21] MEDS ORDERED: SODIUM BICARBONATE 8.4% INJ 50 MEQ/50 ML DISP.SYRIN ONE (03:19)
[2020-07-21] MEDS: DEXTROSE 5%-WATER 1000 ML 1,000 ML with SODIUM BICARBONATE 150 MEQ IV PRN ×6 (03:30→18:26)
[2020-07-21] MEDS: DEXTROSE 5%-WATER 250 ML with NOREPINEPHRINE BITARTRATE 4 MG IV PRN ×4 (04:05→06:55)
[2020-07-21 06:08] LABS: ARTERIAL BLOOD BASE EXCESS -13.4 mmol/L; ARTERIAL BLOOD H2CO3 1.44 mmol/L (1.05-1.35); ARTERIAL BLOOD HCO3 15.7 mmol/L (20-24); ARTERIAL BLOOD TOTAL CO2 17.2 mmol/L (23-27)
[2020-07-21 06:13] LABS: ARTERIAL BLOOD FIO2 100%
[2020-07-21 06:15] LABS: ARTERIAL BLOOD PH 7.13 (7.35-7.45); ARTERIAL BLOOD PO2 36.4 mmHg (80-100)
[2020-07-21] MEDS ORDERED: NOREPINEPHRINE BITARTRATE INJ/PF 4 MG/4 ML SDV IV ONE ×2 (06:44→09:15)
[2020-07-21] MEDS ORDERED: DEXTROSE 5% IV PRN ×2 (08:40)
[2020-07-21] MEDS ORDERED: EPINEPHRINE IV PRN ×2 (08:40)
[2020-07-21] MEDS ORDERED: WATER IV PRN ×2 (08:40)
[2020-07-21] MEDS: DEXTROSE 5%-WATER 250 ML with NOREPINEPHRINE BITARTRATE 8 MG IV PRN ×6 (09:15→18:11)
[2020-07-21] MEDS: DOCUSATE SODIUM 100 MG/10 ML UDC NG SCH (11:37)
[2020-07-21] MEDS: APIXABAN 5 MG TABLET NG SCH ×2 (11:37→18:25)
[2020-07-21] MEDS: FAMOTIDINE INJ/PF 20 MG/2 ML SDV IV SCH ×2 (11:38→21:15)
[2020-07-21] MEDS: DEXAMETHASONE SOD PHOS INJ 10 MG/1 ML VIAL IV SCH (11:38)
[2020-07-21] MEDS: CHOLECALCIFEROL (D3) 1,000 UNIT (25 MCG) TABLET NG SCH (11:38)
[2020-07-21] MEDS: AZITHROMYCIN 250 MG TABLET NG SCH (11:38)
[2020-07-21] MEDS: ZINC SULFATE 220 MG CAPSULE NG SCH (11:38)
[2020-07-21] MEDS: ASCORBIC ACID 500 MG TABLET NG SCH ×2 (11:38→18:25)
[2020-07-21] MEDS: REMDESIVIR 100 MG in NORMAL SALINE 250 ML IV SCH (11:39)
[2020-07-21] MEDS: INSULIN LISPRO 100 UNIT/ML 3 ML VIAL SUBCUT SCH ×2 (11:44→19:57)
[2020-07-21 12:21] LABS: HEMATOCRIT 30.4 % (37.9-51.0); HEMOGLOBIN 9.6 g/dL (13.5-17.0); MEAN CORPUSCULAR HEMOGLOBIN 31.5 pg (27.0-33.4); MEAN CORPUSCULAR HGB CONC 31.5 g/dL (32.0-36.0); MEAN CORPUSCULAR VOLUME 100 fl (80-97); PLATELET COUNT 110 10^3/uL (150-450); RED BLOOD COUNT 3.04 10^6/uL (4.35-5.55); RED CELL DISTRIBUTION WIDTH 17.9 % (11.5-14.0); WHITE BLOOD COUNT 6.9 10^3/uL (4.0-10.5)
[2020-07-21 12:49] LABS: ALKALINE PHOSPHATASE 162 U/L (38-126); ANION GAP 12 (5-19); BILIRUBIN,DIRECT 0.9 mg/dL (0.0-0.4); BILIRUBIN,TOTAL 1.2 mg/dL (0.2-1.3); BLOOD UREA NITROGEN 53 mg/dL (7-20); CARBON DIOXIDE 22 mmol/L (22-30); CHLORIDE 97 mmol/L (98-107); TOTAL PROTEIN 4.5 g/dL (6.3-8.2)
[2020-07-21 13:09] LABS: CALCIUM 5.7 mg/dL (8.4-10.2)
[2020-07-21 13:10] LABS: GLUCOSE 1027 mg/dL (75-110); POTASSIUM 5.1 mmol/L (3.6-5.0)
[2020-07-21 13:31] LABS: ASPARTATE AMINO TRANSFERASE 6642 U/L (17-59)
[2020-07-21] MEDS ORDERED: DEXTROSE 40% GEL 15 GM TUBE PO PRN ×2 (14:11)
[2020-07-21] MEDS ORDERED: DEXTROSE 50%-WATER 25 GM/50 ML DISP.SYRIN IV PRN ×2 (14:11)
[2020-07-21] MEDS ORDERED: GLUCAGON,HUMAN RECOMB 1 MG INJ IM PRN (14:11)
[2020-07-21] MEDS ORDERED: INSULIN REG, HUMAN 100 UNIT/ML 3 ML VIAL (PYX) ONE (14:22)
[2020-07-21] MEDS: NORMAL SALINE 100 ML with INSULIN REGULAR, HUMAN 100 UNIT IV PRN ×4 (14:40→21:37)
[2020-07-21] MEDS ORDERED: CALCIUM GLUCONATE 1000 MG/10 ML INJ IV ONE (15:50)
--- NOTE | 2020-07-21 16:11 | PDOC CRITICAL CARE PROG REPORT ---
General Date:: 07/21/20 ICU Day:: 2 Ventilator Day:: 2 Hospital Day:: 5 Resuscitation Status: Full Code Events in the past 12 to 24 Hours:: Said to be having oxygen needs. 07/21: Post code. Not waking up. Pressure poor od 2 pressors. [id number] in 60s. Review of systems relevant to events:: Pulmonary, CV. Reason for ICU Addmission:: Evaluation - Medications: Medications reviewed and adjusted accordingly: Yes Vasopressors:: Epinephrine Levophed. Sedation:: None Physical Exam Vital Signs: Temp Pulse Resp BP Pulse Ox 97.9 F 77 26 H 134/75 H 79 L 07/20/20 12:00 07/20/20 22:00 07/21/20 12:33 07/21/20 12:33 07/21/20 12:33 Intake & Output 07/20/20 07/21/20 07/22/20 06:59 06:59 06:59 Intake Total 19650 1935 Output Total 50 0 0 Balance 1915 3979 1935 Weight 106.1 kg 121.9 kg 121.9 kg Weight/Height Weight 121.9 kg Height 5 ft 11 in General appearance: PRESENT: no acute distress, obese Head exam: PRESENT: atraumatic, normocephalic Eye exam: PRESENT: conjunctiva pink. ABSENT: scleral icterus Ear exam: PRESENT: normal external ear exam Mouth exam: PRESENT: dry mucosa Respiratory exam: PRESENT: clear to auscultation pennie. ABSENT: rales, rhonchi, wheezes Cardiovascular exam: PRESENT: RRR, tachycardia - +. ABSENT: diastolic murmur, rubs, systolic murmur GI/Abdominal exam: PRESENT: normal bowel sounds, soft. ABSENT: distended, guarding, mass, organolmegaly, rebound, tenderness Rectal exam: PRESENT: deferred Gentrourinary exam: PRESENT: indwelling catheter Musculoskeletal exam: PRESENT: normal inspection Neurological exam: PRESENT: other - Grimacing and twisting head Psychiatric exam: PRESENT: agitated - At times. Skin exam: PRESENT: dry, intact, warm. ABSENT: cyanosis, rash Tubes/Lines: PRESENT: Nasogastic Tube, Other - Trach Laboratory/Radiographs Laboratory Results: 07/21/20 12:03 07/21/20 12:03 07/20/20 07/20/20 07/20/20 14:05 17:14 19:50 WBC 13.9 H RBC 3.55 L Hgb 11.0 L Hct 34.3 L MCV 97 D MCH 31.0 MCHC 32.0 RDW 16.6 H Plt Count 355 Seg Neutrophils % Not Reportable Carbonic Acid 1.65 H HCO3/H2CO3 Ratio 5:1 ABG pH 6.85 L* ABG pCO2 54.7 H ABG pO2 46.4 L ABG HCO3 9.3 L ABG O2 Saturation 50.6 L ABG Base Excess -24.2 FiO2 100% Sodium Potassium Chloride Carbon Dioxide Anion Gap BUN Creatinine Est GFR ( Amer) Glucose Calcium Ferritin 2490.00 H Total Bilirubin AST Alkaline Phosphatase Total Protein Albumin 07/21/20 07/21/20 07/21/20 05:30 12:03 12:03 WBC 6.9 RBC 3.04 L Hgb 9.6 L Hct 30.4 L MCV 100 H MCH 31.5 MCHC 31.5 L RDW 17.9 H Plt Count 110 L Seg Neutrophils % Carbonic Acid 1.44 H HCO3/H2CO3 Ratio 10:1 ABG pH 7.13 L* ABG pCO2 48.0 H ABG pO2 36.4 L* ABG HCO3 15.7 L ABG O2 Saturation 53.0 L ABG Base Excess -13.4 FiO2 100% Sodium 130.5 L Potassium 5.1 H D Chloride 97 L Carbon Dioxide 22 Anion Gap 12 BUN 53 H Creatinine 3.07 H Est GFR ( Amer) 25 L Glucose 1027 H* Calcium 5.7 L* Ferritin Total Bilirubin 1.2 AST 6642 H Alkaline Phosphatase 162 H Total Protein 4.5 L Albumin 2.0 L 07/15/20 07/16/20 16:25 00:24 Creatine Kinase 504 H Troponin I < 0.012 NT-Pro-B Natriuret Pep 3450 H Impressions: Chest/Abdomen CTA 07/15/20 18:03 IMPRESSION: 1. There is no pulmonary embolus. There is no aortic aneurysm or dissection. 2. Extensive, slightly patchy ground-glass infiltrates bilaterally. Nonspecific finding. May indicate chronic interstitial changes or interstitial edema. Cannot exclude an atypical infectious/ inflammatory process. Chest X-Ray 07/20/20 00:00 IMPRESSION: Satisfactory position of right-sided central line. No pneumothorax. KUB X-Ray 07/20/20 13:38 IMPRESSION: Nasogastric tube tip in the stomach. All labs, radiographs, diagnostic studies and EKGs were personally reviewed: Yes In addition, reports of radiographic and diagnostic studies were read: Yes Assessment and Plan - Diagnosis (1) Lab test positive for detection of COVID-19 virus Is this a current diagnosis for this admission?: Yes Plan: The overall reason for his severe illness and code. (2) Acute hypoxemic respiratory failure Is this a current diagnosis for this admission?: Yes Plan: Unfortunately his O2 saturations are only about 70% on 100% (3) Diabetes mellitus type 2 in obese Is this a current diagnosis for this admission?: Yes Plan: A risk factor for Covid mortality (4) HTN (hypertension) Qualifiers: Hypertension type: essential hypertension Qualified Code(s): I10 - Essential (primary) hypertension Is this a current diagnosis for this admission?: Yes Plan: Another risk factor for Covid mortality (5) Paroxysmal atrial fibrillation with rapid ventricular response Is this a current diagnosis for this admission?: Yes Plan: Stable, cardizem off. (6) ARDS (adult respiratory distress syndrome) Is this a current diagnosis for this admission?: Yes Plan: Still present and may well be the final event Plan Summary: Support as best we can. I have spoken to a relative in [place] who is a flight nurse and understands his prognosis id quite poor. She will con tact family and explain grave situation. Will try to make him DNR. Critical Time Critical Time (minutes): 35 Level of Care: ICU Anticipated discharge: Hospice Anticipated DC Timeframe: Other -: 1. The care of a critical patient is a dynamic process. This note is a sales representative facility services synopsis but static in nature. The timeframe for treatments given in order is not necessarily the actual time these treatments may have been done. 2. This patient requires critical care secondary to ongoing requirements for therapy not offered or safe outside the critical care environment. Transfer to a lower level of care will result in altered life or limb morbidity and mortality. 3. Multidisciplinary rounds completed. 4. ABCDE bundle addressed.
[2020-07-21 17:18] LABS: ARTERIAL BLOOD BASE EXCESS -1.1 mmol/L; ARTERIAL BLOOD H2CO3 1.41 mmol/L (1.05-1.35); ARTERIAL BLOOD O2 SATURATION 68.4 % (94-98); ARTERIAL BLOOD PCO2 46.9 mmHg (35-45); ARTERIAL BLOOD PH 7.35 (7.35-7.45); ARTERIAL BLOOD TOTAL CO2 26.5 mmol/L (23-27)
[2020-07-21 17:20] LABS: ARTERIAL BLOOD FIO2 100%
[2020-07-21 17:21] LABS: ARTERIAL BLOOD PO2 37.8 mmHg (80-100)
[2020-07-21] MEDS: CALCIUM GLUCONATE 1 GM/NS 50 ML RTU IV SCH ×4 (17:30→18:30)
[2020-07-21] MEDS: DEXTROSE 5%-WATER 250 ML with VASOPRESSIN 100 UNIT IV PRN ×2 (19:54)
[2020-07-21] MEDS: MELATONIN 5 MG TABLET NG SCH (21:15)
[2020-07-21] MEDS ORDERED: NORMAL SALINE INJ/PF 0.9% 10 ML SDV IV PRN (21:43)
[2020-07-22] MEDS: DEXTROSE 5%-WATER 250 ML with NOREPINEPHRINE BITARTRATE 8 MG IV PRN ×2 (00:17)
[2020-07-22] MEDS: DEXTROSE 5%-WATER 1000 ML 1,000 ML with SODIUM BICARBONATE 150 MEQ IV PRN ×6 (03:30→18:17)
[2020-07-22 05:29] LABS: HEMATOCRIT 28.8 % (37.9-51.0); HEMOGLOBIN 9.9 g/dL (13.5-17.0); MEAN CORPUSCULAR HEMOGLOBIN 31.2 pg (27.0-33.4); MEAN CORPUSCULAR HGB CONC 34.3 g/dL (32.0-36.0); RED BLOOD COUNT 3.17 10^6/uL (4.35-5.55); RED CELL DISTRIBUTION WIDTH 15.9 % (11.5-14.0)
[2020-07-22] MEDS ORDERED: INSULIN REG, HUMAN 100 UNIT/ML 3 ML VIAL (PYX) ONE (05:46)
[2020-07-22] MEDS: NORMAL SALINE 100 ML with INSULIN REGULAR, HUMAN 100 UNIT IV PRN ×8 (05:50→23:47)
[2020-07-22 05:52] LABS: ALBUMIN 2.1 g/dL (3.5-5.0); ALKALINE PHOSPHATASE 209 U/L (38-126); ANION GAP 11 (5-19); BILIRUBIN,DIRECT 0.5 mg/dL (0.0-0.4); BILIRUBIN,TOTAL 0.9 mg/dL (0.2-1.3); BLOOD UREA NITROGEN 72 mg/dL (7-20); CARBON DIOXIDE 29 mmol/L (22-30); CHLORIDE 96 mmol/L (98-107); GLUCOSE 398 mg/dL (75-110); POTASSIUM 5.1 mmol/L (3.6-5.0); TOTAL PROTEIN 4.8 g/dL (6.3-8.2)
[2020-07-22 06:26] LABS: ASPARTATE AMINO TRANSFERASE 3388 U/L (17-59); CALCIUM 6.2 mg/dL (8.4-10.2)
[2020-07-22 06:32] LABS: MEAN CORPUSCULAR VOLUME 91 fl (80-97)
[2020-07-22 06:35] LABS: PLATELET COUNT 88 10^3/uL (150-450)
[2020-07-22 06:38] LABS: ABSOLUTE LYMPHOCYTES# (MANUAL) 0.6 10^3/uL (0.5-4.7); BASOPHILS % (MANUAL) 0 % (0-2); EOSINOPHILS % (MANUAL) 0 % (0-6); LYMPHOCYTES % (MANUAL) 7 % (13-45); MONOCYTES % (MANUAL) 0 % (3-13); SEGMENTED NEUTROPHILS % (MAN) 93 % (42-78); TOTAL CELLS COUNTED 100
[2020-07-22 06:44] LABS: OVALOCYTES SLIGHT
[2020-07-22 06:45] LABS: ANISOCYTOSIS SLIGHT; PLATELET COMMENT DECREASED; TEAR DROP CELLS SLIGHT
[2020-07-22] MEDS: CALCIUM GLUC IN NACL, ISO-OSM 1 GM/50 ML RTUPB IV SCH ×4 (08:11→12:17)
[2020-07-22] MEDS ORDERED: CALCIUM GLUC IN NACL, ISO-OSM 1 GM/50 ML RTUPB IV SCH (10:00)
[2020-07-22] MEDS: APIXABAN 5 MG TABLET NG SCH ×2 (10:25→17:49)
[2020-07-22] MEDS: DOCUSATE SODIUM 100 MG/10 ML UDC NG SCH (10:26)
[2020-07-22] MEDS: ASCORBIC ACID 500 MG TABLET NG SCH ×2 (10:41→18:18)
[2020-07-22] MEDS: ZINC SULFATE 220 MG CAPSULE NG SCH (10:41)
[2020-07-22] MEDS: FAMOTIDINE INJ/PF 20 MG/2 ML SDV IV SCH ×2 (10:41→21:30)
[2020-07-22] MEDS: DEXAMETHASONE SOD PHOS INJ 10 MG/1 ML VIAL IV SCH (10:41)
[2020-07-22] MEDS: CHOLECALCIFEROL (D3) 1,000 UNIT (25 MCG) TABLET NG SCH (10:41)
[2020-07-22] MEDS: AZITHROMYCIN 250 MG TABLET NG SCH (10:41)
--- NOTE | 2020-07-22 12:53 | CRITICAL CARE ADMISSION REPORT ---
HPI Date:: 07/20/20 Time:: 13:30 Reason for ICU Reason:: Post arrest. Admission Date/Time & PCP: Admission Date/Time: 07/15/20 21:41 Primary Care Provider: AREN AGUERO MD HPI: GINA WILSON is a 60 year old male patient of Dr. Aguero who presented to the ED via EMS with worsening shortness of breath over couple of days. Patient reported exertion of his shortness of breath with exertion. He reported associated left sided chest pain with change in position and with breathing heavily. He denied any palpitation,dizziness, LOC, or relief of his pain with rest. He claimed compliance with his medication and dietary restriction as it relates to his hypertension and diabetes mellitus. He denied any nausea, vomiting, or abdominal pain. He denied exposure to infected person with shanks virus or outside of his usual domiciliary area. EMS crew reported on site hypoxemia with saturation at 76% on room air and improved to 92% on nonrebreathing supplemental oxygen. His COVID-19 test was reported negative en route to the ED by EMS crew. His initial ED evaluation was significant for newly diagnosed atrial fibrillation with rapid ventricular response rate, left shift on his CBC, deranged electrolytes, elevated inflammatory indices with elevate D- Dimer, abnormal chest X ray with ill define ground glass appearance, CTA negative for pulmonary embolism but compatible findings with chest X ray, and po sitive COVID-19 test. He was advised hospitalization for further evaluation and management. His morbidities are as listed below. Called to code blue for this 60 year-old man with COVID-19. Evaluated for the ICU earlier but at that did not merit ICU transfer. Apparently he pulled his bipap mask off and suffered what was likely a hypoxic cardiac arrest. See previous territory account executive note. ROSC was obtained and he was brought to the ICU intubated. History obtained from:: Dr. Parks and old records. - Diagnosis/Plan (1) Cardiac arrest Is this a current diagnosis for this admission?: Yes Plan: The circumstances seem to be respiratory related. It seems he was found after the bipap came of or was pulled off. When seen earlier he was awake, alert, appropriate. (2) Acute hypoxemic respiratory failure Is this a current diagnosis for this admission?: Yes Plan: Due as a consequence of COVID PNA. (3) Diabetes mellitus type 2 in obese Is this a current diagnosis for this admission?: Yes Plan: A risk factor for Covid mortality. (4) HTN (hypertension) Qualifiers: Hypertension type: essential hypertension Qualified Code(s): I10 - Essential (primary) hypertension Is this a current diagnosis for this admission?: Yes Plan: Also a risk factor for Covid mortality. (5) Lab test positive for detection of COVID-19 virus Is this a current diagnosis for this admission?: Yes Plan: This is likely the reason for his current difficulties. (6) Paroxysmal atrial fibrillation with rapid ventricular response Is this a current diagnosis for this admission?: Yes Plan: Rate is tachycardic but not uncontrolled. Plan Summary: Move to ICU for further treatment. Prognosis is not good. Past Medical History Cardiac Medical History: Reports: Hypertension Denies: Atrial Fibrillation, Congestive Heart Failure, Coronary Artery Disease, Myocardial Infarction, Hyperlipidema, Peripheral Vascular Disease, Pulmonary Embolism, Heart Murmur Pulmonary Medical History: Reports: Pneumonia Denies: Asthma, Bronchitis, Chronic Obstructive Pulmonary Disease (COPD), Respiratory Failure, Sleep Apnea, Tuberculosis Neurological Medical History: Denies: Seizures Endocrine Medical History: Reports: Diabetes Mellitus Type 2 Denies: Hyperthyroidism, Hypothyroidism Malignancy Medical History: Denies: Lung Cancer Musculoskeltal Medical History: Denies: Arthritis, Fibromyalgia Psychiatric Medical History: Denies: Depression Hematology: Denies: Anemia Past Surgical History Past Surgical History: Denies: Appendectomy, Cholecystectomy, Coronary Artery Bypass Graft, Gastric Bypass Surgery, Herniorrhaphy, Pacemaker, Tonsillectomy Social/Family History - Social History Smoking Status: Never Smoker Hx Recreational Drug Use: No Hx Prescription Drug Abuse: No - Medication/Allergies Home Medications: Sitagliptin Phos/Metformin HCl [Janumet 50-1,000 mg Tablet] 1 each PO BID #60 tablet 08/10/17 Olmesartan/Amlodipin/Hcthiazid [[id number] 40-10-12.5] 1 each PO DAILY 01/26/20 Allergies/Adverse Reactions: No Known Allergies Allergy (Verified 01/26/20 05:32) Review of Systems ROS unobtainable: Due to endotracheal tube, Due to mental status Physical Exam Vital Signs: Temp Pulse Resp BP Pulse Ox 97.9 F 124 H 42 H 144/89 H 87 L 07/20/20 12:00 07/20/20 13:00 07/20/20 09:30 07/20/20 13:00 07/20/20 09:30 Intake & Output 07/19/20 07/20/20 07/21/20 06:59 06:59 06:59 Intake Total 900 1966 375 Output Total 60 50 Balance 840 1916 375 Weight 107.2 kg 106.1 kg Weight/Height Weight 106.1 kg Height 5 ft 11 in General appearance: PRESENT: no acute distress, obese Head exam: PRESENT: atraumatic, normocephalic Eye exam: PRESENT: conjunctiva pink, EOMI, PERRLA. ABSENT: scleral icterus Ear exam: PRESENT: normal external ear exam Mouth exam: PRESENT: moist, tongue midline Respiratory exam: PRESENT: clear to auscultation pennie, decreased breath sounds, rhonchi. ABSENT: rales, wheezes Cardiovascular exam: PRESENT: irregular rhythm, tachycardia. ABSENT: diastolic murmur, rubs, systolic murmur GI/Abdominal exam: PRESENT: normal bowel sounds, soft. ABSENT: distended, guarding, mass, organolmegaly, rebound, tenderness Rectal exam: PRESENT: deferred Gentrourinary exam: PRESENT: indwelling catheter Extremities exam: PRESENT: full ROM. ABSENT: calf tenderness, clubbing, pedal edema Neurological exam: PRESENT: other - Currently unresponsive post arrest. Skin exam: PRESENT: dry, intact, warm. ABSENT: cyanosis, rash Tubes/Lines: PRESENT: Endotracheal Tube, Nasogastic Tube Laboratory/Radiographs Laboratory Results: 07/20/20 14:05 07/20/20 14:05 07/19/20 07/20/20 07/20/20 17:32 06:30 14:05 WBC Cancelled RBC Cancelled Hgb Cancelled Hct Cancelled MCV Cancelled MCH Cancelled MCHC Cancelled RDW Cancelled Plt Count Cancelled Seg Neutrophils % Cancelled Carbonic Acid 1.24 HCO3/H2CO3 Ratio 18:1 ABG pH 7.37 ABG pCO2 41.2 ABG pO2 52.3 L ABG HCO3 23.3 ABG O2 Saturation 86.1 L ABG Base Excess -1.9 FiO2 100% Sodium Potassium Chloride Carbon Dioxide Anion Gap BUN Creatinine Est GFR ( Amer) Glucose Calcium Phosphorus Magnesium Total Bilirubin AST Alkaline Phosphatase C-Reactive Protein Total Protein Albumin Blood Type O NEGATIVE 07/20/20 07/20/20 14:05 14:56 WBC RBC Hgb Hct MCV MCH MCHC RDW Plt Count Seg Neutrophils % Carbonic Acid 1.75 H HCO3/H2CO3 Ratio 7:1 ABG pH 6.97 L* ABG pCO2 58.0 H ABG pO2 51.0 L ABG HCO3 13.1 L ABG O2 Saturation 64.6 L ABG Base Excess -18.4 FiO2 100% Sodium 145.7 H Potassium 6.7 H* Chloride 111 H Carbon Dioxide 14 L Anion Gap 21 H BUN 37 H Creatinine 1.32 H Est GFR ( Amer) > 60 Glucose 333 H Calcium 8.0 L Phosphorus 10.1 H Magnesium 3.5 H Total Bilirubin 0.5 AST 363 H Alkaline Phosphatase 102 C-Reactive Protein 263.8 H Total Protein 5.3 L Albumin 2.4 L Blood Type 07/15/20 07/16/20 16:25 00:24 Creatine Kinase 504 H Troponin I < 0.012 NT-Pro-B Natriuret Pep 3450 H Impressions: Chest/Abdomen CTA 07/15/20 18:03 IMPRESSION: 1. There is no pulmonary embolus. There is no aortic aneurysm or dissection. 2. Extensive, slightly patchy ground-glass infiltrates bilaterally. Nonspecific finding. May indicate chronic interstitial changes or interstitial edema. Cannot exclude an atypical infectious/ inflammatory process. Chest X-Ray 07/20/20 00:00 IMPRESSION: Satisfactory position of right-sided central line. No pneumothorax. KUB X-Ray 07/20/20 13:38 IMPRESSION: Nasogastric tube tip in the stomach. All labs, radiographs, diagnostic studies and EKGs were personally reviewed: Yes In addition, reports of radiographic and diagnostic studies were read: Yes Critical Time Critical Time (minutes): 40 -: The care of a critically ill patient is dynamic. This note represents a static moment in the admission process. Orders and treatments may be given simultaneously and urgently, and time is not employment representative of the treatment process. This patient requires Critical Care secondary to life threatening organ or limb dysfunction. Without Critical Care services, the patient is at risk for increased mortality and morbidity.
--- NOTE | 2020-07-22 13:11 | PDOC CRITICAL CARE PROG REPORT ---
General Date:: 07/22/20 ICU Day:: 2 Ventilator Day:: 2 Hospital Day:: 6 Resuscitation Status: Full Code Events in the past 12 to 24 Hours:: Said to be having oxygen needs. 07/21: Post code. Not waking up. Pressure poor on 2 pressors. [id number] in 60s. 07/22: Oxygenation a bit better in the mid-80s. Still unresponsive. Review of systems relevant to events:: Pulmonary, CV, neurological. Reason for ICU Addmission:: Post arrest. Intubated and on pressors. - Medications: Medications reviewed and adjusted accordingly: Yes Vasopressors:: Just came off epinephrine this AM. Sedation:: None Physical Exam Vital Signs: Temp Pulse Resp BP Pulse Ox 95.9 F L 83 29 H 107/76 84 L 07/22/20 08:00 07/22/20 10:00 07/22/20 12:23 07/22/20 12:23 07/22/20 12:23 Intake & Output 07/21/20 07/22/20 07/23/20 06:59 06:59 06:59 Intake Total 3980 5333 1192 Output Total 0 200 5 Balance 3980 5133 1187 Weight 121.9 kg 130.1 kg Weight/Height Weight 130.1 kg Height 5 ft 11 in General appearance: PRESENT: no acute distress Head exam: PRESENT: atraumatic, normocephalic Eye exam: PRESENT: conjunctiva pink. ABSENT: scleral icterus Ear exam: PRESENT: normal external ear exam Mouth exam: PRESENT: moist, tongue midline Respiratory exam: PRESENT: clear to auscultation pennie. ABSENT: rales, rhonchi, wheezes Cardiovascular exam: PRESENT: RRR. ABSENT: diastolic murmur, rubs, systolic murmur GI/Abdominal exam: PRESENT: normal bowel sounds, soft. ABSENT: distended, guar ding, mass, organolmegaly, rebound, tenderness Rectal exam: PRESENT: deferred Gentrourinary exam: PRESENT: indwelling catheter Extremities exam: PRESENT: full ROM. ABSENT: calf tenderness, clubbing, pedal edema Musculoskeletal exam: PRESENT: normal inspection Neurological exam: PRESENT: other - Unresponsive. No cough, gag reflex. No doll's eyes. Skin exam: PRESENT: dry, intact, warm. ABSENT: cyanosis, rash Tubes/Lines: PRESENT: Endotracheal Tube, Central Line, Nasogastic Tube Laboratory/Radiographs Laboratory Results: 07/22/20 05:00 07/22/20 05:00 07/21/20 07/21/20 07/21/20 12:03 16:05 16:50 WBC RBC Hgb Hct MCV MCH MCHC RDW Plt Count Seg Neutrophils % Carbonic Acid 1.41 H HCO3/H2CO3 Ratio 17:1 ABG pH 7.35 ABG pCO2 46.9 H ABG pO2 37.8 L* ABG HCO3 25.0 H ABG O2 Saturation 68.4 L ABG Base Excess -1.1 FiO2 100% Sodium 130.5 L Potassium 5.1 H D Chloride 97 L Carbon Dioxide 22 Anion Gap 12 BUN 53 H Creatinine 3.07 H Est GFR ( Amer) 25 L Glucose 1027 H* 1082 H* Calcium 5.7 L* Total Bilirubin 1.2 AST 6642 H Alkaline Phosphatase 162 H Total Protein 4.5 L Albumin 2.0 L 07/21/20 07/21/20 07/21/20 17:10 18:19 19:20 WBC RBC Hgb Hct MCV MCH MCHC RDW Plt Count Seg Neutrophils % Carbonic Acid HCO3/H2CO3 Ratio ABG pH ABG pCO2 ABG pO2 ABG HCO3 ABG O2 Saturation ABG Base Excess FiO2 Sodium Potassium Chloride Carbon Dioxide Anion Gap BUN Creatinine Est GFR ( Amer) Glucose 1072 H* 1055 H* 1049 H* Calcium Total Bilirubin AST Alkaline Phosphatase Total Protein Albumin 07/21/20 07/21/20 07/22/20 21:15 23:03 00:45 WBC RBC Hgb Hct MCV MCH MCHC RDW Plt Count Seg Neutrophils % Carbonic Acid HCO3/H2CO3 Ratio ABG pH ABG pCO2 ABG pO2 ABG HCO3 ABG O2 Saturation ABG Base Excess FiO2 Sodium Potassium Chloride Carbon Dioxide Anion Gap BUN Creatinine Est GFR ( Amer) Glucose 995 H* 895 H* 775 H* Calcium Total Bilirubin AST Alkaline Phosphatase Total Protein Albumin 07/22/20 07/22/20 07/22/20 03:00 05:00 05:00 WBC 8.0 RBC 3.17 L Hgb 9.9 L Hct 28.8 L MCV 91 D MCH 31.2 MCHC 34.3 RDW 15.9 H Plt Count 88 L Seg Neutrophils % Not Reportable Carbonic Acid HCO3/H2CO3 Ratio ABG pH ABG pCO2 ABG pO2 ABG HCO3 ABG O2 Saturation ABG Base Excess FiO2 Sodium 136.4 L Potassium 5.1 H Chloride 96 L Carbon Dioxide 29 Anion Gap 11 BUN 72 H Creatinine 3.95 H Est GFR ( Amer) 19 L Glucose 554 H* 398 H Calcium 6.2 L* Total Bilirubin 0.9 AST 3388 H Alkaline Phosphatase 209 H Total Protein 4.8 L Albumin 2.1 L 07/15/20 07/16/20 16:25 00:24 Creatine Kinase 504 H Troponin I < 0.012 NT-Pro-B Natriuret Pep 3450 H Impressions: Chest/Abdomen CTA 07/15/20 18:03 IMPRESSION: 1. There is no pulmonary embolus. There is no aortic aneurysm or dissection. 2. Extensive, slightly patchy ground-glass infiltrates bilaterally. Nonspecific finding. May indicate chronic interstitial changes or interstitial edema. Cannot exclude an atypical infectious/ inflammatory process. Chest X-Ray 07/20/20 00:00 IMPRESSION: Satisfactory position of right-sided central line. No pneumothorax. KUB X-Ray 07/20/20 13:38 IMPRESSION: Nasogastric tube tip in the stomach. All labs, radiographs, diagnostic studies and EKGs were personally reviewed: Yes In addition, reports of radiographic and diagnostic studies were read: Yes Assessment and Plan - Diagnosis (1) Cardiac arrest Is this a current diagnosis for this admission?: Yes Plan: He is unresponsive after 2 days which carries a very poor prognosis. A brain exam cannot be done at this point due to his oxygen saturations being so low. (2) Acute hypoxemic respiratory failure Is this a current diagnosis for this admission?: Yes (3) Diabetes mellitus type 2 in obese Is this a current diagnosis for this admission?: Yes Plan: On insulin drip but should become lower now that he is of epinephrine. (4) HTN (hypertension) Qualifiers: Hypertension type: essential hypertension Qualified Code(s): I10 - Essential (primary) hypertension Is this a current diagnosis for this admission?: Yes Plan: Now hypotensive after arrest but BP improving and he is off epinephrine (5) Lab test positive for detection of COVID-19 virus Is this a current diagnosis for this admission?: Yes Plan: Probably the ultimate cause of his overall illness. (6) Paroxysmal atrial fibrillation with rapid ventricular response Is this a current diagnosis for this admission?: Yes Plan: Currently not an issue. Plan Summary: I've spoken to 2 family members, one a son, the other daughter in law, an EMT and flight nurse respectively. They seem to understand the seriousness of his condition and will try to convey this to the rest of the family. Critical Time Critical Time (minutes): 35 Level of Care: ICU Anticipated discharge: Hospice Anticipated DC Timeframe: Other -: 1. The care of a critical patient is a dynamic process. This note is a plastic products sales representative synopsis but static in nature. The timeframe for treatments given in order is not necessarily the actual time these treatments may have been done. 2. This patient requires critical care secondary to ongoing requirements for therapy not offered or safe outside the critical care environment. Transfer to a lower level of care will result in altered life or limb morbidity and mortality. 3. Multidisciplinary rounds completed. 4. ABCDE bundle addressed.
[2020-07-22] MEDS: MELATONIN 5 MG TABLET NG SCH (21:30)
[2020-07-22] MEDS ORDERED: INSULIN GLARGINE,HUM.REC.ANLOG 1,000 UNIT/10 ML VIAL (PYX) SUBCUT ONE (22:00)
[2020-07-23] MEDS: DEXTROSE 5%-WATER 1000 ML 1,000 ML with SODIUM BICARBONATE 150 MEQ IV PRN ×2 (02:30)
[2020-07-23] MEDS: NORMAL SALINE 100 ML with INSULIN REGULAR, HUMAN 100 UNIT IV PRN ×8 (03:00→20:55)
[2020-07-23 05:38] LABS: ARTERIAL BLOOD HCO3 27.3 mmol/L (20-24); ARTERIAL BLOOD O2 SATURATION 74.6 % (94-98); ARTERIAL BLOOD PCO2 40.8 mmHg (35-45); ARTERIAL BLOOD PH 7.44 (7.35-7.45); ARTERIAL BLOOD TOTAL CO2 28.6 mmol/L (23-27)
[2020-07-23 05:40] LABS: ARTERIAL BLOOD FIO2 100; ARTERIAL BLOOD H2CO3 1.23 mmol/L (1.05-1.35)
[2020-07-23 05:42] LABS: ARTERIAL BLOOD PO2 38.1 mmHg (80-100)
[2020-07-23 06:05] LABS: ALBUMIN 1.9 g/dL (3.5-5.0); ALKALINE PHOSPHATASE 198 U/L (38-126); BILIRUBIN,DIRECT 0.7 mg/dL (0.0-0.4); BLOOD UREA NITROGEN 94 mg/dL (7-20); CARBON DIOXIDE 38 mmol/L (22-30); CHLORIDE 91 mmol/L (98-107); GLUCOSE 266 mg/dL (75-110); POTASSIUM 4.2 mmol/L (3.6-5.0); TOTAL PROTEIN 4.4 g/dL (6.3-8.2)
[2020-07-23 06:19] LABS: ASPARTATE AMINO TRANSFERASE 1136 U/L (17-59)
[2020-07-23 06:22] LABS: CALCIUM 5.8 mg/dL (8.4-10.2)
[2020-07-23 06:29] LABS: ANION GAP 4 (5-19)
[2020-07-23] MEDS: CALCIUM GLUC IN NACL, ISO-OSM 1 GM/50 ML RTUPB IV SCH ×5 (07:09→10:38)
[2020-07-23] MEDS: ZINC SULFATE 220 MG CAPSULE NG SCH (09:42)
[2020-07-23] MEDS: DEXAMETHASONE SOD PHOS INJ 10 MG/1 ML VIAL IV SCH (09:42)
[2020-07-23] MEDS: ASCORBIC ACID 500 MG TABLET NG SCH ×2 (09:42→18:05)
[2020-07-23] MEDS: CHOLECALCIFEROL (D3) 1,000 UNIT (25 MCG) TABLET NG SCH (09:42)
[2020-07-23] MEDS: FAMOTIDINE INJ/PF 20 MG/2 ML SDV IV SCH ×2 (09:42→23:34)
[2020-07-23] MEDS: APIXABAN 5 MG TABLET NG SCH ×2 (09:44→18:04)
[2020-07-23 10:20] LABS: HEMATOCRIT 24.9 % (37.9-51.0); HEMOGLOBIN 8.6 g/dL (13.5-17.0); MEAN CORPUSCULAR HEMOGLOBIN 30.8 pg (27.0-33.4); MEAN CORPUSCULAR HGB CONC 34.5 g/dL (32.0-36.0); MEAN CORPUSCULAR VOLUME 89 fl (80-97); RED BLOOD COUNT 2.79 10^6/uL (4.35-5.55); RED CELL DISTRIBUTION WIDTH 15.3 % (11.5-14.0); WHITE BLOOD COUNT 11.5 10^3/uL (4.0-10.5)
[2020-07-23] MEDS: DOCUSATE SODIUM 100 MG/10 ML UDC NG SCH (10:38)
[2020-07-23] MEDS: AZITHROMYCIN 250 MG TABLET NG SCH (10:38)
[2020-07-23] MEDS: INSULIN GLARGINE,HUM.REC.ANLOG 1,000 UNIT/10 ML VIAL SUBCUT SCH ×2 (10:39→23:34)
[2020-07-23 10:57] LABS: PLATELET COUNT 65 10^3/uL (150-450)
[2020-07-23] MEDS ORDERED: INSULIN REG, HUMAN 100 UNIT/ML 3 ML VIAL (PYX) ONE (13:44)
--- NOTE | 2020-07-23 17:21 | PDOC CRITICAL CARE PROG REPORT ---
General Date:: 07/23/20 ICU Day:: 3 Ventilator Day:: 3 Hospital Day:: 7 Resuscitation Status: Full Code Events in the past 12 to 24 Hours:: Said to be having oxygen needs. 07/21: Post code. Not waking up. Pressure poor on 2 pressors. [id number] in 60s. 07/22: Oxygenation a bit better in the mid-80s. Still unresponsive. 07/23/20: Off pressors but not waking up Review of systems relevant to events:: Neurological, CV, pulmonary. Reason for ICU Addmission:: Post arrest. Intubated and on pressors. - Medications: Medications reviewed and adjusted accordingly: Yes Vasopressors:: None right now. Sedation:: None Physical Exam Vital Signs: Temp Pulse Resp BP Pulse Ox 98.1 F 84 26 H 114/67 86 L 07/23/20 12:00 07/23/20 12:00 07/23/20 12:35 07/23/20 12:35 07/23/20 12:35 Intake & Output 07/22/20 07/23/20 07/24/20 06:59 06:59 06:59 Intake Total 5333 4136 Output Total 200 135 20 Balance 5133 4001 -20 Weight 130.1 kg 130.9 kg Weight/Height Weight 130.9 kg Height 5 ft 11 in General appearance: PRESENT: no acute distress Head exam: PRESENT: atraumatic Eye exam: PRESENT: conjunctiva pink Ear exam: PRESENT: normal external ear exam Mouth exam: PRESENT: moist, tongue midline Respiratory exam: PRESENT: clear to auscultation pennie. ABSENT: rales, rhonchi, wheezes Cardiovascular exam: PRESENT: RRR. ABSENT: diastolic murmur, rubs, systolic murmur GI/Abdominal exam: PRESENT: normal bowel sounds, soft. ABSENT: distended, guarding, mass, organolmegaly, rebound, tenderness Rectal exam: PRESENT: deferred Gentrourinary exam: PRESENT: indwelling catheter Extremities exam: PRESENT: full ROM. ABSENT: calf tenderness, clubbing, pedal edema Musculoskeletal exam: PRESENT: normal inspection Neurological exam: PRESENT: other - No cough, gag reflex, no spontaneous movement. Not awake. Skin exam: PRESENT: dry, intact, warm. ABSENT: cyanosis, rash Tubes/Lines: PRESENT: Endotracheal Tube, Central Line, Nasogastic Tube Laboratory/Radiographs Laboratory Results: 07/23/20 09:56 07/23/20 05:10 07/23/20 07/23/20 07/23/20 05:10 05:10 08:32 WBC Cancelled RBC Cancelled Hgb Cancelled Hct Cancelled MCV Cancelled MCH Cancelled MCHC Cancelled RDW Cancelled Plt Count Cancelled Carbonic Acid 1.23 HCO3/H2CO3 Ratio 22:1 ABG pH 7.44 ABG pCO2 40.8 ABG pO2 38.1 L* ABG HCO3 27.3 H ABG O2 Saturation 74.6 L ABG Base Excess 3.0 FiO2 100 Sodium 133.3 L Potassium 4.2 Chloride 91 L Carbon Dioxide 38 H Anion Gap 4 L BUN 94 H Creatinine 4.95 H Est GFR ( Amer) 14 L Glucose 266 H Calcium 5.8 L* Ionized Calcium Alexandrea 0.90 L Total Bilirubin 1.0 AST 1136 H Alkaline Phosphatase 198 H Total Protein 4.4 L Albumin 1.9 L 07/23/20 09:56 WBC 11.5 H RBC 2.79 L Hgb 8.6 L Hct 24.9 L MCV 89 MCH 30.8 MCHC 34.5 RDW 15.3 H Plt Count 65 L Carbonic Acid HCO3/H2CO3 Ratio ABG pH ABG pCO2 ABG pO2 ABG HCO3 ABG O2 Saturation ABG Base Excess FiO2 Sodium Potassium Chloride Carbon Dioxide Anion Gap BUN Creatinine Est GFR ( Amer) Glucose Calcium Ionized Calcium Alexandrea Total Bilirubin AST Alkaline Phosphatase Total Protein Albumin 07/15/20 07/16/20 16:25 00:24 Creatine Kinase 504 H Troponin I < 0.012 NT-Pro-B Natriuret Pep 3450 H Impressions: Chest/Abdomen CTA 07/15/20 18:03 IMPRESSION: 1. There is no pulmonary embolus. There is no aortic aneurysm or dissection. 2. Extensive, slightly patchy ground-glass infiltrates bilaterally. Nonspecific finding. May indicate chronic interstitial changes or interstitial edema. Cannot exclude an atypical infectious/ inflammatory process. Chest X-Ray 07/20/20 00:00 IMPRESSION: Satisfactory position of right-sided central line. No pneumothorax. KUB X-Ray 07/20/20 13:38 IMPRESSION: Nasogastric tube tip in the stomach. All labs, radiographs, diagnostic studies and EKGs were personally reviewed: Yes In addition, reports of radiographic and diagnostic studies were read: Yes Assessment and Plan - Diagnosis (1) Acute hypoxemic respiratory failure Is this a current diagnosis for this admission?: Yes Plan: He is still intermitantly hypoxic but now his saturations stay in the mid to high 80s. 100% FIO2. (2) Diabetes mellitus type 2 in obese Is this a current diagnosis for this admission?: Yes Plan: Still on an insulin drip at 15 units/hour. Improved off epinephrine (3) HTN (hypertension) Qualifiers: Hypertension type: essential hypertension Qualified Code(s): I10 - Essential (primary) hypertension Is this a current diagnosis for this admission?: Yes Plan: Controlled (4) Lab test positive for detection of COVID-19 virus Is this a current diagnosis for this admission?: Yes Plan: Probably the inciting event. (5) Paroxysmal atrial fibrillation with rapid ventricular response Is this a current diagnosis for this admission?: Yes Plan: Not active Plan Summary: I've spoken to his son who believes a DNR status is best. However both and mother are said to be resistent. Critical Time Critical Time (minutes): 35 Level of Care: ICU Anticipated discharge: Hospice Anticipated DC Timeframe: Other -: 1. The care of a critical patient is a dynamic process. This note is a cash applications representative synopsis but static in nature. The timeframe for treatments given in order is not necessarily the actual time these treatments may have been done. 2. This patient requires critical care secondary to ongoing requirements for therapy not offered or safe outside the critical care environment. Transfer to a lower level of care will result in altered life or limb morbidity and mortality. 3. Multidisciplinary rounds completed. 4. ABCDE bundle addressed.
[2020-07-23] MEDS: MELATONIN 5 MG TABLET NG SCH (22:09)
[2020-07-24 04:52] LABS: ARTERIAL BLOOD BASE EXCESS 5.8 mmol/L; ARTERIAL BLOOD H2CO3 1.32 mmol/L (1.05-1.35); ARTERIAL BLOOD HCO3 30.4 mmol/L (20-24); ARTERIAL BLOOD PCO2 43.9 mmHg (35-45); ARTERIAL BLOOD PH 7.46 (7.35-7.45); ARTERIAL BLOOD PO2 47.2 mmHg (80-100); ARTERIAL BLOOD TOTAL CO2 31.7 mmol/L (23-27)
[2020-07-24 04:53] LABS: ARTERIAL BLOOD FIO2 100%
[2020-07-24 05:01] LABS: HEMATOCRIT 24.9 % (37.9-51.0); HEMOGLOBIN 8.5 g/dL (13.5-17.0); MEAN CORPUSCULAR HEMOGLOBIN 30.5 pg (27.0-33.4); MEAN CORPUSCULAR HGB CONC 34.1 g/dL (32.0-36.0); MEAN CORPUSCULAR VOLUME 89 fl (80-97); RED BLOOD COUNT 2.78 10^6/uL (4.35-5.55); RED CELL DISTRIBUTION WIDTH 15.4 % (11.5-14.0); WHITE BLOOD COUNT 13.1 10^3/uL (4.0-10.5)
[2020-07-24 05:14] LABS: ALKALINE PHOSPHATASE 195 U/L (38-126); ANION GAP 11 (5-19); ASPARTATE AMINO TRANSFERASE 656 U/L (17-59); BILIRUBIN,DIRECT 0.8 mg/dL (0.0-0.4); BILIRUBIN,TOTAL 1.2 mg/dL (0.2-1.3); CARBON DIOXIDE 35 mmol/L (22-30); CHLORIDE 91 mmol/L (98-107); GLUCOSE 104 mg/dL (75-110); PHOSPHORUS 7.2 mg/dL (2.5-4.5); POTASSIUM 4.7 mmol/L (3.6-5.0); TOTAL PROTEIN 4.6 g/dL (6.3-8.2)
[2020-07-24 05:21] LABS: CALCIUM 6.4 mg/dL (8.4-10.2)
[2020-07-24 05:22] LABS: BLOOD UREA NITROGEN 117 mg/dL (7-20)
[2020-07-24 05:28] LABS: PLATELET COUNT 54 10^3/uL (150-450)
[2020-07-24 05:30] LABS: ABSOLUTE LYMPHOCYTES# (MANUAL) 0.4 10^3/uL (0.5-4.7); ABSOLUTE MONOCYTES # (MANUAL) 0.1 10^3/uL (0.1-1.4); ANISOCYTOSIS SLIGHT; BASOPHILS % (MANUAL) 0 % (0-2); EOSINOPHILS % (MANUAL) 0 % (0-6); LYMPHOCYTES % (MANUAL) 3 % (13-45); MONOCYTES % (MANUAL) 1 % (3-13); NUCLEATED RED BLOOD CELLS 1 /100 WBC (0); PLATELET COMMENT DECREASED; SEGMENTED NEUTROPHILS % (MAN) 96 % (42-78); TOTAL CELLS COUNTED 100
[2020-07-24] MEDS ORDERED: CALCIUM GLUC IN NACL, ISO-OSM 1 GM/50 ML RTUPB IV ONE (06:56)
[2020-07-24] MEDS: CALCIUM GLUC IN NACL, ISO-OSM 1 GM/50 ML RTUPB IV SCH ×2 (07:06→08:16)
--- NOTE | 2020-07-24 08:23 | RADIOLOGY REPORT (SQ) ---
EXAM DESCRIPTION: CHEST SINGLE VIEW IMAGES COMPLETED DATE/TIME: 07/24/2020 6:43 am REASON FOR STUDY: resp failure; f/u pneumonia and ETT position COMPARISON: 07/20/2020 NUMBER OF VIEWS: One view. TECHNIQUE: Single frontal radiographic image of the chest acquired. LIMITATIONS: None. FINDINGS: LUNGS AND PLEURA: Bilateral airspace disease without significant change allowing for diffe rences in positioning. No pneumothorax. MEDIASTINUM AND HEART: Stable heart size and mediastinal structures. SUPPORT DEVICES: Appropriate location without change. BONY STRUCTURES: No acute findings. HARDWARE: None. OTHER: No other significant finding. IMPRESSION: No significant change. No pneumothorax. Reading location - IP/workstation name: [email or web address]
[2020-07-24] MEDS: DOCUSATE SODIUM 100 MG/10 ML UDC NG SCH (10:17)
[2020-07-24] MEDS: ZINC SULFATE 220 MG CAPSULE NG SCH (10:17)
[2020-07-24] MEDS: FAMOTIDINE INJ/PF 20 MG/2 ML SDV IV SCH ×2 (10:17→21:27)
[2020-07-24] MEDS: DEXAMETHASONE SOD PHOS INJ 10 MG/1 ML VIAL IV SCH (10:17)
[2020-07-24] MEDS: APIXABAN 5 MG TABLET NG SCH ×2 (10:18→18:18)
[2020-07-24] MEDS: INSULIN GLARGINE,HUM.REC.ANLOG 1,000 UNIT/10 ML VIAL SUBCUT SCH ×2 (10:18→21:27)
[2020-07-24] MEDS: AZITHROMYCIN 250 MG TABLET NG SCH (10:18)
[2020-07-24] MEDS: ASCORBIC ACID 500 MG TABLET NG SCH ×2 (10:18→17:56)
[2020-07-24] MEDS: CHOLECALCIFEROL (D3) 1,000 UNIT (25 MCG) TABLET NG SCH (10:18)
--- NOTE | 2020-07-24 12:45 | PDOC CRITICAL CARE PROG REPORT ---
General Date:: 07/24/20 ICU Day:: 4 Ventilator Day:: 4 Hospital Day:: 8 Resuscitation Status: Full Code Events in the past 12 to 24 Hours:: Said to be having oxygen needs. 07/21: Post code. Not waking up. Pressure poor on 2 pressors. [id number] in 60s. 07/22: Oxygenation a bit better in the mid-80s. Still unresponsive. 07/23/20: Off pressors but not waking up 07/24: Still no response Review of systems relevant to events:: Neurological, CV, pulmonary. Reason for ICU Addmission:: Post arrest. Intubated and on pressors. - Medications: Medications reviewed and adjusted accordingly: Yes Vasopressors:: None Sedation:: None Physical Exam Vital Signs: Temp Pulse Resp BP Pulse Ox 97.3 F 95 26 H 110/71 86 L 07/24/20 06:00 07/23/20 22:00 07/24/20 12:06 07/24/20 12:06 07/24/20 12:06 Intake & Output 07/23/20 07/24/20 07/25/20 06:59 06:59 06:59 Intake Total 4136 296 Output Total 135 222 60 Balance 4001 74 -60 Weight 130.9 kg 131.2 kg Weight/Height Weight 131.2 kg Height 5 ft 11 in General appearance: PRESENT: no acute distress Head exam: PRESENT: atraumatic, normocephalic Eye exam: PRESENT: conjunctiva pink, EOMI, PERRLA. ABSENT: scleral icterus Ear exam: PRESENT: normal external ear exam Mouth exam: PRESENT: moist, tongue midline Respiratory exam: PRESENT: clear to auscultation pennie, decreased breath sounds. ABSENT: rales, rhonchi, wheezes Cardiovascular exam: PRESENT: RRR. ABSENT: diastolic murmur, rubs, systolic murmur GI/Abdominal exam: PRESENT: normal bowel sounds, soft. ABSENT: distended, guarding, mass, organolmegaly, rebound, tenderness Rectal exam: PRESENT: deferred Gentrourinary exam: PRESENT: indwelling catheter Extremities exam: PRESENT: full ROM. ABSENT: calf tenderness, clubbing, pedal edema Musculoskeletal exam: PRESENT: normal inspection Neurological exam: PRESENT: other - Still not responsive as before. Skin exam: PRESENT: dry, intact, warm. ABSENT: cyanosis, rash Tubes/Lines: PRESENT: Endotracheal Tube, Central Line, Nasogastic Tube Laboratory/Radiographs Laboratory Results: 07/24/20 04:20 07/24/20 04:20 07/24/20 07/24/20 07/24/20 04:20 04:20 04:20 WBC 13.1 H RBC 2.78 L Hgb 8.5 L Hct 24.9 L MCV 89 MCH 30.5 MCHC 34.1 RDW 15.4 H Plt Count 54 L Seg Neutrophils % Not Reportable Carbonic Acid 1.32 HCO3/H2CO3 Ratio 23:1 ABG pH 7.46 H ABG pCO2 43.9 ABG pO2 47.2 L ABG HCO3 30.4 H ABG O2 Saturation 85.0 L ABG Base Excess 5.8 FiO2 100% Sodium 136.5 L Potassium 4.7 Chloride 91 L Carbon Dioxide 35 H Anion Gap 11 BUN 117 H D Creatinine 6.54 H Est GFR ( Amer) 10 L Glucose 104 Calcium 6.4 L* Ionized Calcium Alexandrea Phosphorus 7.2 H Magnesium 2.3 Total Bilirubin 1.2 AST 656 H Alkaline Phosphatase 195 H Total Protein 4.6 L Albumin 2.0 L 07/24/20 05:00 WBC RBC Hgb Hct MCV MCH MCHC RDW Plt Count Seg Neutrophils % Carbonic Acid HCO3/H2CO3 Ratio ABG pH ABG pCO2 ABG pO2 ABG HCO3 ABG O2 Saturation ABG Base Excess FiO2 Sodium Potassium Chloride Carbon Dioxide Anion Gap BUN Creatinine Est GFR ( Amer) Glucose Calcium Ionized Calcium Alexandrea 0.82 L Phosphorus Magnesium Total Bilirubin AST Alkaline Phosphatase Total Protein Albumin 07/15/20 07/16/20 16:25 00:24 Creatine Kinase 504 H Troponin I < 0.012 NT-Pro-B Natriuret Pep 3450 H Impressions: Chest/Abdomen CTA 07/15/20 18:03 IMPRESSION: 1. There is no pulmonary embolus. There is no aortic aneurysm or dissection. 2. Extensive, slightly patchy ground-glass infiltrates bilaterally. Nonspecific finding. May indicate chronic interstitial changes or interstitial edema. Cannot exclude an atypical infectious/ inflammatory process. KUB X-Ray 07/20/20 13:38 IMPRESSION: Nasogastric tube tip in the stomach. Chest X-Ray 07/24/20 06:00 IMPRESSION: No significant change. No pneumothorax. All labs, radiographs, diagnostic studies and EKGs were personally reviewed: Yes In addition, reports of radiographic and diagnostic studies were read: Yes Assessment and Plan - Diagnosis (1) Acute hypoxemic respiratory failure Is this a current diagnosis for this admission?: Yes Plan: Less hypoxemic with O2 saturations holding at about 85-87 range. (2) Diabetes mellitus type 2 in obese Is this a current diagnosis for this admission?: Yes Plan: Still on insulin drip at 7 units/hour. (3) HTN (hypertension) Qualifiers: Hypertension type: essential hypertension Qualified Code(s): I10 - Essential (primary) hypertension Is this a current diagnosis for this admission?: Yes Plan: Controlled and holding steady. (4) Lab test positive for detection of COVID-19 virus Is this a current diagnosis for this admission?: Yes Plan: Covid is likely the cause of his arrest. Plan Summary: Not responsive. Unable to wean vent to protect airway at extubation. Start tube feeds as it seems to be agressive care until told otherwise. Critical Time Critical Time (minutes): 35 Level of Care: ICU Anticipated discharge: Hospice Anticipated DC Timeframe: Other -: 1. The care of a critical patient is a dynamic process. This note is a bottling equipment sales representative synopsis but static in nature. The timeframe for treatments given in order is not necessarily the actual time these treatments may have been done. 2. This patient requires critical care secondary to ongoing requirements for therapy not offered or safe outside the critical care environment. Transfer to a lower level of care will result in altered life or limb morbidity and mortality. 3. Multidisciplinary rounds completed. 4. ABCDE bundle addressed.
[2020-07-24] MEDS: NORMAL SALINE 100 ML with INSULIN REGULAR, HUMAN 100 UNIT IV PRN ×2 (18:55)
[2020-07-24] MEDS: MELATONIN 5 MG TABLET NG SCH (21:28)
[2020-07-25 01:55] LABS: HEMATOCRIT 25.2 % (37.9-51.0); HEMOGLOBIN 8.8 g/dL (13.5-17.0); MEAN CORPUSCULAR HEMOGLOBIN 31.1 pg (27.0-33.4); MEAN CORPUSCULAR HGB CONC 34.8 g/dL (32.0-36.0); MEAN CORPUSCULAR VOLUME 89 fl (80-97); RED BLOOD COUNT 2.82 10^6/uL (4.35-5.55); RED CELL DISTRIBUTION WIDTH 15.6 % (11.5-14.0); WHITE BLOOD COUNT 11.8 10^3/uL (4.0-10.5)
[2020-07-25 02:39] LABS: ABSOLUTE LYMPHOCYTES# (MANUAL) 0.4 10^3/uL (0.5-4.7); ABSOLUTE MONOCYTES # (MANUAL) 0.5 10^3/uL (0.1-1.4); BASOPHILS % (MANUAL) 0 % (0-2); EOSINOPHILS % (MANUAL) 0 % (0-6); LYMPHOCYTES % (MANUAL) 3 % (13-45); MONOCYTES % (MANUAL) 4 % (3-13); NUCLEATED RED BLOOD CELLS 1 /100 WBC (0); SEGMENTED NEUTROPHILS % (MAN) 93 % (42-78); TOTAL CELLS COUNTED 100
[2020-07-25 02:40] LABS: PLATELET COMMENT DECREASED
[2020-07-25 02:42] LABS: ANION GAP 13 (5-19); CARBON DIOXIDE 33 mmol/L (22-30); CHLORIDE 91 mmol/L (98-107); GLUCOSE 152 mg/dL (75-110)
[2020-07-25 02:48] LABS: TARGET CELLS SLIGHT
[2020-07-25 02:49] LABS: POLYCHROMASIA SLIGHT
[2020-07-25 02:50] LABS: ANISOCYTOSIS SLIGHT
[2020-07-25 03:01] LABS: PLATELET COUNT 45 10^3/uL (150-450)
[2020-07-25 03:09] LABS: BLOOD UREA NITROGEN 148 mg/dL (7-20); POTASSIUM 5.9 mmol/L (3.6-5.0)
[2020-07-25 03:10] LABS: CALCIUM 6.8 mg/dL (8.4-10.2)
--- NOTE | 2020-07-25 03:17 | Progress Note ---
Provider Note Provider Note: ICU Interim Evaluation Note: Reason for encounter: ventilator management to decrease plateau pressure and attempt to increase SPO2 Settings prior to change: 100% PRVC Vt 500 RR 26 Peep 15 Plateau pressure 37, SPO2 remains 85%, Ve 13 IBW 75.8 kg based on height of 5'11" 6 ml/kg = 454 mL Vt 5 ml/kg = 379 mL Vt Changed head of bed positioning from 30 to flat, ultimately returning to 30 degrees as there was no difference in oxygenation by increasing perfusion to lung apices. Multiple ventilator modes attempted to include pressure control as well as APRV with no improvement and in fact, SPO2 decreased to 78%. Therefore, I settled on 100% PRVC Vt 380 RR 32 Peep 15. Pplat is 30-31 on these settings, Ve 12.7, SPO2 now 89% upon exiting room Assessment: Severe ARDS due to COVID-19 pneumonia with extremely poor lung compliance Hypoxia Plan: -Continue 100% PRVC Vt 380 RR 32 Peep 15 -repeat ABG 6am (I anticipate PaCO2 to be <55) and in severe ARDS will accept <65 if pH >7.25 (permissive hypercapnia) Prognosis very grim and family has been made aware by Dr Gleason. Total critical care time spent was 35 minutes performing ventilator management as above.
[2020-07-25] MEDS ORDERED: DEXTROSE 50%-WATER 25 GM/50 ML DISP.SYRIN IV ONE (03:20)
[2020-07-25] MEDS ORDERED: INSULIN REG, HUMAN 100 UNIT/ML 3 ML VIAL (PYX) IV ONE (03:20)
[2020-07-25] MEDS ORDERED: FUROSEMIDE INJ/PF 100 MG/10 ML SDV IV ONE (03:25)
[2020-07-25] MEDS: MELATONIN 5 MG TABLET NG SCH ×2 (03:30→22:08)
[2020-07-25] MEDS ORDERED: INSULIN REG, HUMAN 100 UNIT/ML 3 ML VIAL (PYX) ONE (03:32)
[2020-07-25] MEDS: CALCIUM GLUC IN NACL, ISO-OSM 1 GM/50 ML RTUPB IV SCH ×3 (03:58→06:00)
[2020-07-25 06:18] LABS: FIBRINOGEN 550 mg/dL (209-497); INTERNATIONAL RATION (INR) 1.22; PROTHROMBIN TIME 15.6 SEC (11.4-15.4)
[2020-07-25 06:19] LABS: PARTIAL THROMBOPLASTIN TIME 38.3 SEC (23.5-35.8)
[2020-07-25] MEDS: NORMAL SALINE 100 ML with INSULIN REGULAR, HUMAN 100 UNIT IV PRN ×2 (06:26)
[2020-07-25 06:33] LABS: ARTERIAL BLOOD BASE EXCESS 4.2 mmol/L; ARTERIAL BLOOD H2CO3 1.72 mmol/L (1.05-1.35); ARTERIAL BLOOD HCO3 31.4 mmol/L (20-24); ARTERIAL BLOOD O2 SATURATION 87.2 % (94-98); ARTERIAL BLOOD PCO2 57.3 mmHg (35-45); ARTERIAL BLOOD PH 7.36 (7.35-7.45); ARTERIAL BLOOD PO2 55.7 mmHg (80-100); ARTERIAL BLOOD TOTAL CO2 33.2 mmol/L (23-27)
[2020-07-25 06:38] LABS: ARTERIAL BLOOD FIO2 100%
[2020-07-25] MEDS: ASCORBIC ACID 500 MG TABLET NG SCH ×2 (10:47→17:27)
[2020-07-25] MEDS: DOCUSATE SODIUM 100 MG/10 ML UDC NG SCH (10:47)
[2020-07-25] MEDS: CHOLECALCIFEROL (D3) 1,000 UNIT (25 MCG) TABLET NG SCH (10:48)
[2020-07-25] MEDS: INSULIN GLARGINE,HUM.REC.ANLOG 1,000 UNIT/10 ML VIAL SUBCUT SCH ×2 (10:48→22:08)
[2020-07-25] MEDS: AZITHROMYCIN 250 MG TABLET NG SCH (10:48)
[2020-07-25] MEDS: FAMOTIDINE INJ/PF 20 MG/2 ML SDV IV SCH ×2 (10:48→22:08)
[2020-07-25] MEDS: DEXAMETHASONE SOD PHOS INJ 10 MG/1 ML VIAL IV SCH (10:48)
[2020-07-25] MEDS: ZINC SULFATE 220 MG CAPSULE NG SCH (10:49)
[2020-07-25] MEDS: APIXABAN 5 MG TABLET NG SCH ×2 (10:49→17:26)
--- NOTE | 2020-07-25 13:01 | PDOC CRITICAL CARE PROG REPORT ---
General Date:: 07/25/20 ICU Day:: 5 Ventilator Day:: 5 Hospital Day:: 10 Resuscitation Status: Full Code Events in the past 12 to 24 Hours:: Said to be having oxygen needs. 07/21: Post code. Not waking up. Pressure poor on 2 pressors. [id number] in 60s. 07/22: Oxygenation a bit better in the mid-80s. Still unresponsive. 07/23/20: Off pressors but not waking up 07/24: Still no response 07/25: Pt has good BP off pressors, normothermic with an O2 saturation above 90. First brain exam shows brain . Pt too unstable to try an apnea test. Review of systems relevant to events:: Neurologic, CV Respiratory. Reason for ICU Addmission:: Post arrest. Intubated and on pressors. - Medications: Medications reviewed and adjusted accordingly: Yes Vasopressors:: Epinephrine Sedation:: None Physical Exam Vital Signs: Temp Pulse Resp BP Pulse Ox 95.5 F L 79 32 H 108/72 88 L 07/25/20 08:00 07/25/20 10:00 07/25/20 10:00 07/25/20 12:06 07/25/20 12:31 Intake & Output 07/24/20 07/25/20 07/26/20 06:59 06:59 06:59 Intake Total 296 417 38 Output Total 222 1100 445 Balance 74 -983 -407 Weight 131.2 kg 129.7 kg Weight/Height Weight 129.7 kg Height 5 ft 11 in General appearance: PRESENT: obese Head exam: PRESENT: atraumatic, normocephalic Eye exam: PRESENT: conjunctiva pink Ear exam: PRESENT: normal external ear exam Mouth exam: PRESENT: moist, tongue midline Neck exam: ABSENT: carotid bruit, JVD, lymphadenopathy, thyromegaly Respiratory exam: PRESENT: clear to auscultation pennie. ABSENT: rales, rhonchi, wheezes Cardiovascular exam: PRESENT: RRR. ABSENT: diastolic murmur, rubs, systolic murmur GI/Abdominal exam: PRESENT: normal bowel sounds, soft. ABSENT: distended, guarding, mass, organolmegaly, rebound, tenderness Rectal exam: PRESENT: deferred Gentrourinary exam: PRESENT: indwelling catheter Extremities exam: PRESENT: full ROM. ABSENT: calf tenderness, clubbing, pedal edema Musculoskeletal exam: PRESENT: normal inspection Neurological exam: PRESENT: other - The patient met brain criteria on his first brain exam. Skin exam: PRESENT: dry, intact, warm. ABSENT: cyanosis, rash Tubes/Lines: PRESENT: Endotracheal Tube, Central Line, Nasogastic Tube Laboratory/Radiographs Laboratory Results: 07/25/20 01:25 07/25/20 01:25 07/25/20 07/25/20 07/25/20 01:25 01:25 02:30 WBC 11.8 H RBC 2.82 L Hgb 8.8 L Hct 25.2 L MCV 89 MCH 31.1 MCHC 34.8 RDW 15.6 H Plt Count 45 L Seg Neutrophils % Not Reportable Carbonic Acid HCO3/H2CO3 Ratio ABG pH ABG pCO2 ABG pO2 ABG HCO3 ABG O2 Saturation ABG Base Excess FiO2 Sodium 136.8 L Potassium 5.9 H D Chloride 91 L Carbon Dioxide 33 H Anion Gap 13 BUN 148 H D Creatinine 7.45 H Est GFR ( Amer) 9 L Glucose 152 H Calcium 6.8 L* Ionized Calcium Alexandrea 0.87 L 07/25/20 06:08 WBC RBC Hgb Hct MCV MCH MCHC RDW Plt Count Seg Neutrophils % Carbonic Acid 1.72 H HCO3/H2CO3 Ratio 18:1 ABG pH 7.36 ABG pCO2 57.3 H ABG pO2 55.7 L ABG HCO3 31.4 H ABG O2 Saturation 87.2 L ABG Base Excess 4.2 FiO2 100% Sodium Potassium Chloride Carbon Dioxide Anion Gap BUN Creatinine Est GFR ( Amer) Glucose Calcium Ionized Calcium Alexandrea 07/15/20 07/16/20 16:25 00:24 Creatine Kinase 504 H Troponin I < 0.012 NT-Pro-B Natriuret Pep 3450 H Impressions: Chest/Abdomen CTA 07/15/20 18:03 IMPRESSION: 1. There is no pulmonary embolus. There is no aortic aneurysm or dissection. 2. Extensive, slightly patchy ground-glass infiltrates bilaterally. Nonspecific finding. May indicate chronic interstitial changes or interstitial edema. Cannot exclude an atypical infectious/ inflammatory process. KUB X-Ray 07/20/20 13:38 IMPRESSION: Nasogastric tube tip in the stomach. Chest X-Ray 07/24/20 06:00 IMPRESSION: No significant change. No pneumothorax. All labs, radiographs, diagnostic studies and EKGs were personally reviewed: Yes In addition, reports of radiographic and diagnostic studies were read: Yes Assessment and Plan - Diagnosis (1) Acute hypoxemic respiratory failure Is this a current diagnosis for this admission?: Yes Plan: From Covid 19 leading to his arrest. (2) Diabetes mellitus type 2 in obese Is this a current diagnosis for this admission?: Yes Plan: Controlled on insulin drip. (3) HTN (hypertension) Qualifiers: Hypertension type: essential hypertension Qualified Code(s): I10 - Essential (primary) hypertension Is this a current diagnosis for this admission?: Yes Plan: Controlled and stable off epinephrine. (4) Lab test positive for detection of COVID-19 virus Is this a current diagnosis for this admission?: Yes Plan: COVID is likely the cause of his illness including his arrest. Plan Summary: Hope to talk to son and inform him of brain exam. He will likely need HD becuase of ARF but with this exam a withdraw is more appropriate. Critical Time Critical Time (minutes): 45 Level of Care: ICU Anticipated discharge: Other Anticipated DC Timeframe: Other -: 1. The care of a critical patient is a dynamic process. This note is a insurance account representative synopsis but static in nature. The timeframe for treatments given in order is not necessarily the actual time these treatments may have been done. 2. This patient requires critical care secondary to ongoing requirements for therapy not offered or safe outside the critical care environment. Transfer to a lower level of care will result in altered life or limb morbidity and mortality. 3. Multidisciplinary rounds completed. 4. ABCDE bundle addressed.
--- NOTE | 2020-07-25 13:03 | Neuro Death Exam ---
1st EXAM - I. PREREQUISITES A. Clinical or neuroimaging evidence of acute DETECTIVE CAPTAIN catastrophe that is compatible with irreversible loss of brain function: Yes 1. Absence of severe electrolyte, acid base or endocrine disturbance or severe hyperammonemia: Yes 2. Absence of drug intoxication, poisoning, sedatives or neuromuscular blocking agents: Yes 3. Core temperature = 96.8 F / 36 C: Yes - II. COMA or UNRESPONSIVENESS A. Absence of any cerebrally-mediated response to auditory and tactile noxious stimulation, peripherally and in the cranium.: Yes - III. ABSENCE OF BRAINSTEM REFLEXES 1. Pupillary size midposition or dilated: Yes 2. Pupils unresponsive to bright light: Yes 1. Absent oculocephalic reflex: Yes 2. Absent oculovestibular reflex (caloric responses) (N.B. The oculovestibular reflex must always be tested. The oculocephalic test may be contraindicated when C-spine integrity questioned; otherwise it m: Yes C. Absent corneal reflexes: Yes 1. Absent response to posterior pharyngeal stimulation: Yes 2. Absent cough to bronchial suctioning: Yes 3. Absent spontaneous respirations: Yes - IV. APNEA 1. Core temperature = 96.8 F / 36 C: Yes 2. Systolic BP > 100 mm Hg (with or without vasopressor agents): Yes 3. Arterial pCO2 40 +/- 5 mm Hg: No 1. Preoxygenate to a PaO2 > 200 mm Hg and then administer 100% FIO2 during the entire test period: No 2. Disconnect the ventilator; monitor with pulse oximeter throughout the test period: No 3. Deliver 100% FIO2 into the trachea via a cannula at the level of the julissa, maintaining oxygen saturation above 85%: No 4. Check arterial blood gases at 8-10 minutes and reconnect the ventilator when either: No Apnea Testing Contraindicated: Yes Summary of Findings - Summary of FIndings II. COMA or UNRESPONSIVENESS: Yes III. ABSENCE OF BRAINSTEM REFLEXES: Yes IV. APNEA: Apnea test contraindicated V. BRAIN ESTABLISHED BY ANCILLARY TESTING: Yes COMFIRMED IN ADULTS BY NEUROLOGICAL CRITERIA: Yes
[2020-07-25] MEDS: SODIUM POLYSTYRENE SULFONATE 15 GM/60 ML PO SCH ×2 (14:59→17:27)
[2020-07-25 15:25] LABS: ANION GAP 9 (5-19); CARBON DIOXIDE 36 mmol/L (22-30); CHLORIDE 91 mmol/L (98-107); GLUCOSE 132 mg/dL (75-110)
[2020-07-25 15:43] LABS: BLOOD UREA NITROGEN 162 mg/dL (7-20)
[2020-07-25 15:45] LABS: CALCIUM 6.9 mg/dL (8.4-10.2); POTASSIUM 6.4 mmol/L (3.6-5.0)
[2020-07-25] MEDS ORDERED: BISACODYL 10 MG SUPP.RECT PR ONE (21:18)
--- NOTE | 2020-07-25 21:37 | RADIOLOGY REPORT (SQ) ---
EXAM DESCRIPTION: CHEST SINGLE VIEW 07/25/2020 8:18 PM GENERAL LABOR CLINICAL HISTORY: 60 years Male, ETT position; ; COMPARISON: Multiple priors, most recent from 07/24/2020 FINDINGS: Single view is obtained. Endotracheal tube tip is located within the trachea, approximately 4 cm above the julissa. Enteric drainage tube tip projects below the field of view. Right side approach central venous catheter tip is located within the SVC. Cardiac and mediastinal contours are stable. Patchy multifocal bilateral airspace disease persists, not substantially changed from the previous exam. No pneumothorax or large pleural effusion. IMPRESSION: No significant interval change in the appearance of the chest.
--- NOTE | 2020-07-25 21:39 | RADIOLOGY REPORT (SQ) ---
EXAM DESCRIPTION: KUB/ABDOMEN (SINGLE VIEW) 07/25/2020 12:00 AM FOOD EXPEDITOR CLINICAL HISTORY: 60 years Male, r/o ileus/obstruction; ; COMPARISON: Prior KUB from 07/20/2020 FINDINGS: 2 views were obtained. Enteric drainage tube tip projects over the gastric body. There is minimal, if any small bowel gas which limits the evaluation of its caliber. Similarly, the large bowel also demonstrates minimal, if any gas. No suspicious osseous anomalies or soft tissue calcifications. Partially imaged left total hip arthroplasty. IMPRESSION: Indeterminate bowel gas pattern.
[2020-07-25] MEDS: METOCLOPRAMIDE HCL INJ/PF 10 MG/2 ML SDV IV SCH (22:35)
[2020-07-26] MEDS: NORMAL SALINE 100 ML with INSULIN REGULAR, HUMAN 100 UNIT IV PRN ×4 (00:25→12:08)
[2020-07-26] MEDS: SODIUM POLYSTYRENE SULFONATE 15 GM/60 ML PO SCH ×3 (00:29→13:25)
[2020-07-26] MEDS ORDERED: FUROSEMIDE INJ/PF 100 MG/10 ML SDV ONE ×5 (02:04→07:10)
[2020-07-26] MEDS: NORMAL SALINE 250 ML with FUROSEMIDE 250 MG IV PRN ×8 (02:14→21:38)
[2020-07-26] MEDS: METOCLOPRAMIDE HCL INJ/PF 10 MG/2 ML SDV IV SCH (04:54)
[2020-07-26 06:31] LABS: ANION GAP 14 (5-19); CARBON DIOXIDE 33 mmol/L (22-30); CHLORIDE 93 mmol/L (98-107); GLUCOSE 140 mg/dL (75-110)
[2020-07-26 06:42] LABS: BLOOD UREA NITROGEN 177 mg/dL (7-20)
[2020-07-26 06:44] LABS: CALCIUM 6.9 mg/dL (8.4-10.2)
[2020-07-26] MEDS: APIXABAN 5 MG TABLET NG SCH ×2 (11:07→17:54)
[2020-07-26] MEDS: ZINC SULFATE 220 MG CAPSULE NG SCH (11:07)
[2020-07-26] MEDS: DOCUSATE SODIUM 100 MG/10 ML UDC NG SCH (11:07)
[2020-07-26] MEDS: FAMOTIDINE INJ/PF 20 MG/2 ML SDV IV SCH ×2 (12:09→21:36)
[2020-07-26] MEDS: INSULIN GLARGINE,HUM.REC.ANLOG 1,000 UNIT/10 ML VIAL SUBCUT SCH ×2 (12:09→21:36)
[2020-07-26] MEDS: ASCORBIC ACID 500 MG TABLET NG SCH ×2 (12:09→18:50)
[2020-07-26] MEDS: DEXAMETHASONE SOD PHOS INJ 10 MG/1 ML VIAL IV SCH (12:10)
[2020-07-26] MEDS: CHOLECALCIFEROL (D3) 1,000 UNIT (25 MCG) TABLET NG SCH (12:10)
[2020-07-26] MEDS: AZITHROMYCIN 250 MG TABLET NG SCH (12:11)
--- NOTE | 2020-07-26 19:29 | PDOC CRITICAL CARE PROG REPORT ---
General Date:: 07/26/20 ICU Day:: 6 Ventilator Day:: 6 Hospital Day:: 11 Resuscitation Status: Full Code Events in the past 12 to 24 Hours:: Said to be having oxygen needs. 07/21: Post code. Not waking up. Pressure poor on 2 pressors. [id number] in 60s. 07/22: Oxygenation a bit better in the mid-80s. Still unresponsive. 07/23/20: Off pressors but not waking up 07/24: Still no response 07/25: Pt has good BP off pressors, normothermic with an O2 saturation above 90. First brain exam shows brain . Pt too unstable to try an apnea test. 07/26: No clinically significant change. Clinically, I highly suspicious for brain . Review of systems relevant to events:: Neurologic, CV Respiratory. Reason for ICU Addmission:: Post arrest. Intubated and on pressors. - Medications: Medications reviewed and adjusted accordingly: Yes Vasopressors:: Epinephrine Physical Exam Vital Signs: Temp Pulse Resp BP Pulse Ox 96.8 F L 77 32 H 97/61 L 86 L 07/26/20 12:00 07/26/20 14:00 07/26/20 14:00 07/26/20 16:06 07/26/20 16:06 Intake & Output 07/25/20 07/26/20 07/27/20 06:59 06:59 06:59 Intake Total 417 209 520 Output Total 1100 2705 1435 Balance -683 -2496 -915 Weight 129.7 kg 128.2 kg Weight/Height Weight 128.2 kg Height 1.8 m General appearance: PRESENT: no acute distress, well-developed, well-nourished Head exam: PRESENT: atraumatic, normocephalic Eye exam: PRESENT: conjunctiva pink. ABSENT: EOMI, PERRLA, scleral icterus Mouth exam: PRESENT: moist, tongue midline Neck exam: ABSENT: carotid bruit, JVD, lymphadenopathy, thyromegaly Respiratory exam: PRESENT: clear to auscultation pennie. ABSENT: rales, rhonchi, wheezes Cardiovascular exam: PRESENT: RRR. ABSENT: diastolic murmur, rubs, systolic murmur Pulses: PRESENT: normal dorsalis pedis pul Gentrourinary exam: PRESENT: indwelling catheter Extremities exam: PRESENT: full ROM. ABSENT: calf tenderness, clubbing, pedal edema Neurological exam: PRESENT: motor sensory deficit, other - Synchronous with ventilator. No cough/gag. No corneal reflex.. ABSENT: altered, reflexes normal, CN II-XII grossly intact Psychiatric exam: ABSENT: agitated, anxious Skin exam: PRESENT: dry, intact, warm. ABSENT: cyanosis, rash Tubes/Lines: PRESENT: Endotracheal Tube Laboratory/Radiographs Laboratory Results: 07/25/20 01:25 07/26/20 05:30 07/26/20 07/26/20 05:30 06:30 Sodium 140.4 Potassium 6.0 H* Chloride 93 L Carbon Dioxide 33 H Anion Gap 14 BUN 177 H Creatinine 8.26 H Est GFR ( Amer) 8 L Glucose 140 H Calcium 6.9 L* Ionized Calcium Alexandrea 0.89 L 07/15/20 07/16/20 16:25 00:24 Creatine Kinase 504 H Troponin I < 0.012 NT-Pro-B Natriuret Pep 3450 H Impressions: Chest/Abdomen CTA 07/15/20 18:03 IMPRESSION: 1. There is no pulmonary embolus. There is no aortic aneurysm or dissection. 2. Extensive, slightly patchy ground-glass infiltrates bilaterally. Nonspecific finding. May indicate chronic interstitial changes or interstitial edema. Cannot exclude an atypical infectious/ inflammatory process. KUB X-Ray 07/25/20 00:00 IMPRESSION: Indeterminate bowel gas pattern. Chest X-Ray 07/25/20 20:18 IMPRESSION: No significant interval change in the appearance of the chest. All labs, radiographs, diagnostic studies and EKGs were personally reviewed: Yes In addition, reports of radiographic and diagnostic studies were read: Yes Assessment and Plan - Diagnosis (1) ARDS (adult respiratory distress syndrome) Is this a current diagnosis for this admission?: Yes (2) Acute hypoxemic respiratory failure Is this a current diagnosis for this admission?: Yes Plan: * From COVID-19 pneumonia leading to his arrest. * Adjust vent settings to target PCO2 3545. (3) Atrial fibrillation with rapid ventricular response Is this a current diagnosis for this admission?: Yes (4) Diabetes mellitus type 2 in obese Is this a current diagnosis for this admission?: Yes (5) HTN (hypertension) Qualifiers: Hypertension type: essential hypertension Qualified Code(s): I10 - Esse ntial (primary) hypertension Is this a current diagnosis for this admission?: Yes (6) Pneumonia due to COVID-19 virus Is this a current diagnosis for this admission?: Yes (7) Acute kidney injury Is this a current diagnosis for this admission?: Yes (8) Hyperkalemia Is this a current diagnosis for this admission?: Yes Plan Summary: Clinically, suspicious for brain . Apnea test is warranted. Critical Time Critical Time (minutes): 45 Level of Care: ICU -: 1. The care of a critical patient is a dynamic process. This note is a financial services representative synopsis but static in nature. The timeframe for treatments given in order is not necessarily the actual time these treatments may have been done. 2. This patient requires critical care secondary to ongoing requirements for therapy not offered or safe outside the critical care environment. Transfer to a lower level of care will result in altered life or limb morbidity and mortality. 3. Multidisciplinary rounds completed. 4. ABCDE bundle addressed.
[2020-07-26] MEDS: MELATONIN 5 MG TABLET NG SCH (21:36)
[2020-07-27] MEDS: NORMAL SALINE 250 ML with FUROSEMIDE 250 MG IV PRN ×6 (03:53→18:48)
[2020-07-27 08:55] LABS: ARTERIAL BLOOD BASE EXCESS 6.8 mmol/L; ARTERIAL BLOOD H2CO3 1.65 mmol/L (1.05-1.35); ARTERIAL BLOOD HCO3 32.8 mmol/L (20-24); ARTERIAL BLOOD O2 SATURATION 86.5 % (94-98); ARTERIAL BLOOD PCO2 54.7 mmHg (35-45); ARTERIAL BLOOD PO2 52.8 mmHg (80-100); ARTERIAL BLOOD TOTAL CO2 34.5 mmol/L (23-27)
[2020-07-27 08:56] LABS: ARTERIAL BLOOD FIO2 100%
[2020-07-27 09:59] LABS: ANION GAP 14 (5-19); CALCIUM 7.1 mg/dL (8.4-10.2); CARBON DIOXIDE 37 mmol/L (22-30); CHLORIDE 92 mmol/L (98-107); GLUCOSE 145 mg/dL (75-110); POTASSIUM 5.8 mmol/L (3.6-5.0)
[2020-07-27 10:08] LABS: BLOOD UREA NITROGEN 202 mg/dL (7-20)
[2020-07-27] MEDS: DEXAMETHASONE SOD PHOS INJ 10 MG/1 ML VIAL IV SCH (11:14)
[2020-07-27] MEDS: AZITHROMYCIN 250 MG TABLET NG SCH (11:15)
[2020-07-27] MEDS: ASCORBIC ACID 500 MG TABLET NG SCH ×2 (11:15→18:25)
[2020-07-27] MEDS: FAMOTIDINE INJ/PF 20 MG/2 ML SDV IV SCH ×2 (11:15→21:23)
[2020-07-27] MEDS: APIXABAN 5 MG TABLET NG SCH ×2 (11:16→18:25)
[2020-07-27] MEDS: ZINC SULFATE 220 MG CAPSULE NG SCH (11:16)
[2020-07-27] MEDS: DOCUSATE SODIUM 100 MG/10 ML UDC NG SCH (11:16)
[2020-07-27] MEDS: INSULIN GLARGINE,HUM.REC.ANLOG 1,000 UNIT/10 ML VIAL SUBCUT SCH ×2 (11:16→21:23)
[2020-07-27] MEDS: CHOLECALCIFEROL (D3) 1,000 UNIT (25 MCG) TABLET NG SCH (18:25)
--- NOTE | 2020-07-27 19:29 | PDOC CRITICAL CARE PROG REPORT ---
General Date:: 07/27/20 ICU Day:: 7 Ventilator Day:: 7 Hospital Day:: 12 Resuscitation Status: Full Code Events in the past 12 to 24 Hours:: Said to be having oxygen needs. 07/21: Post code. Not waking up. Pressure poor on 2 pressors. [id number] in 60s. 07/22: Oxygenation a bit better in the mid-80s. Still unresponsive. 07/23/20: Off pressors but not waking up 07/24: Still no response 07/25: Pt has good BP off pressors, normothermic with an O2 saturation above 90. First brain exam shows brain . Pt too unstable to try an apnea test. 07/26: No clinically significant change. Clinically, I highly suspicious for brain . 07/27: No significant change. Still suspicious for brain . Of note, ABG th is a.m. on FiO2 100%: pH 7.40, PCO2 55, PO2 53. The PO2 of 53 on high FiO2 precludes pursuing an apnea test, as the patient would need to be preoxygenated to a PaO2 greater than 200. Review of systems relevant to events:: Neurologic, CV Respiratory. Reason for ICU Addmission:: Post arrest. Intubated and on pressors. - Medications: Medications reviewed and adjusted accordingly: Yes Vasopressors:: Epinephrine Physical Exam Vital Signs: Temp Pulse Resp BP Pulse Ox 97.0 F 81 32 H 115/79 88 L 07/27/20 10:00 07/27/20 10:00 07/27/20 10:07/27/20 10:00 07/27/20 11:37 Intake & Output 07/26/20 07/27/20 07/28/20 06:59 06:59 06:59 Intake Total 209 1380 250 Output Total 2703 5435 1150 Balance -2496 -4055 -900 Weight 128.2 kg 124 kg Weight/Height Weight 124 kg Height 1.8 m General appearance: PRESENT: no acute distress, well-developed, well-nourished Head exam: PRESENT: atraumatic, normocephalic Eye exam: ABSENT: EOMI, nystagmus, PERRLA Neck exam: ABSENT: carotid bruit, JVD, lymphadenopathy, thyromegaly Respiratory exam: PRESENT: clear to auscultation pennie, symmetrical. ABSENT: rales, rhonchi, wheezes Cardiovascular exam: PRESENT: RRR. ABSENT: diastolic murmur, rubs, systolic murmur Pulses: PRESENT: normal dorsalis pedis pul Gentrourinary exam: PRESENT: indwelling catheter Musculoskeletal exam: PRESENT: normal inspection. ABSENT: deformity Neurological exam: PRESENT: other - No doll's eyes. No corneal reflex. No cough/gag. Her nurse with ventilator. Laboratory/Radiographs Laboratory Results: 07/25/20 01:25 07/27/20 08:40 07/27/20 07/27/20 08:40 08:40 Carbonic Acid 1.65 H HCO3/H2CO3 Ratio 19:1 ABG pH 7.40 ABG pCO2 54.7 H ABG pO2 52.8 L ABG HCO3 32.8 H ABG O2 Saturation 86.5 L ABG Base Excess 6.8 FiO2 100% Sodium 143.4 Potassium 5.8 H Chloride 92 L Carbon Dioxide 37 H Anion Gap 14 BUN 202 H Creatinine 7.58 H Est GFR ( Amer) 9 L Glucose 145 H Calcium 7.1 L 07/15/20 07/16/20 16:25 00:24 Creatine Kinase 504 H Troponin I < 0.012 NT-Pro-B Natriuret Pep 3450 H Impressions: Chest/Abdomen CTA 07/15/20 18:03 IMPRESSION: 1. There is no pulmonary embolus. There is no aortic aneurysm or dissection. 2. Extensive, slightly patchy ground-glass infiltrates bilaterally. Nonspecific finding. May indicate chronic interstitial changes or interstitial edema. Cannot exclude an atypical infectious/ inflammatory process. KUB X-Ray 07/25/20 00:00 IMPRESSION: Indeterminate bowel gas pattern. Chest X-Ray 07/25/20 20:18 IMPRESSION: No significant interval change in the appearance of the chest. All labs, radiographs, diagnostic studies and EKGs were personally reviewed: Yes In addition, reports of radiographic and diagnostic studies were read: Yes Assessment and Plan - Diagnosis (1) ARDS (adult respiratory distress syndrome) Is this a current diagnosis for this admission?: Yes (2) Acute hypoxemic respiratory failure Is this a current diagnosis for this admission?: Yes (3) Atrial fibrillation with rapid ventricular response Is this a current diagnosis for this admission?: Yes (4) Diabetes mellitus type 2 in obese Is this a current diagnosis for this admission?: Yes (5) HTN (hypertension) Qualifiers: Hypertension type: essential hypertension Qualified Code(s): I10 - Essent ial (primary) hypertension Is this a current diagnosis for this admission?: Yes (6) Pneumonia due to COVID-19 virus Is this a current diagnosis for this admission?: Yes (7) Acute kidney injury Is this a current diagnosis for this admission?: Yes (8) Hyperkalemia Is this a current diagnosis for this admission?: Yes Plan Summary: * Clinically, suspicious for brain . * Apnea test cannot be pursued at this time due to the patient's severe Aa gradient. * Awaiting the patient's son's attainment of [facility] power of civil rights attorney status. * The patient's and mother were updated by phone. They have requested a fa maxine meeting tomorrow. Critical Time Critical Time (minutes): 45 Level of Care: ICU -: 1. The care of a critical patient is a dynamic process. This note is a credit representative synopsis but static in nature. The timeframe for treatments given in order is not necessarily the actual time these treatments may have been done. 2. This patient requires critical care secondary to ongoing requirements for therapy not offered or safe outside the critical care environment. Transfer to a lower level of care will result in altered life or limb morbidity and mortality. 3. Multidisciplinary rounds completed. 4. ABCDE bundle addressed.
[2020-07-27] MEDS: MELATONIN 5 MG TABLET NG SCH (21:23)
[2020-07-28] MEDS: NORMAL SALINE 250 ML with FUROSEMIDE 250 MG IV PRN ×6 (01:03→16:30)
[2020-07-28 05:55] LABS: ARTERIAL BLOOD BASE EXCESS 10.2 mmol/L; ARTERIAL BLOOD HCO3 37.4 mmol/L (20-24); ARTERIAL BLOOD O2 SATURATION 84.8 % (94-98); ARTERIAL BLOOD PCO2 59.9 mmHg (35-45); ARTERIAL BLOOD PH 7.41 (7.35-7.45); ARTERIAL BLOOD PO2 49.9 mmHg (80-100); ARTERIAL BLOOD TOTAL CO2 39.2 mmol/L (23-27)
[2020-07-28 06:05] LABS: ARTERIAL BLOOD FIO2 100%
[2020-07-28] MEDS: ASCORBIC ACID 500 MG TABLET NG SCH ×2 (11:48→17:50)
[2020-07-28] MEDS: CHOLECALCIFEROL (D3) 1,000 UNIT (25 MCG) TABLET NG SCH (11:49)
[2020-07-28] MEDS: AZITHROMYCIN 250 MG TABLET NG SCH (11:49)
[2020-07-28] MEDS: APIXABAN 5 MG TABLET NG SCH ×2 (11:49→17:51)
[2020-07-28] MEDS: FAMOTIDINE INJ/PF 20 MG/2 ML SDV IV SCH ×2 (11:50→23:57)
[2020-07-28] MEDS: DEXAMETHASONE SOD PHOS INJ 10 MG/1 ML VIAL IV SCH (11:50)
[2020-07-28] MEDS: DOCUSATE SODIUM 100 MG/10 ML UDC NG SCH (11:51)
[2020-07-28] MEDS: INSULIN GLARGINE,HUM.REC.ANLOG 1,000 UNIT/10 ML VIAL SUBCUT SCH ×2 (11:51→23:57)
[2020-07-28] MEDS: ZINC SULFATE 220 MG CAPSULE NG SCH (11:52)
[2020-07-28] MEDS ORDERED: NORMAL SALINE 1000 ML 1,000 ML IV ONE (18:30)
--- NOTE | 2020-07-28 19:34 | PDOC CRITICAL CARE PROG REPORT ---
General Date:: 07/28/20 ICU Day:: 8 Ventilator Day:: 8 Hospital Day:: 13 Resuscitation Status: Full Code Events in the past 12 to 24 Hours:: Said to be having oxygen needs. 07/21: Post code. Not waking up. Pressure poor on 2 pressors. [id number] in 60s. 07/22: Oxygenation a bit better in the mid-80s. Still unresponsive. 07/23/20: Off pressors but not waking up 07/24: Still no response 07/25: Pt has good BP off pressors, normothermic with an O2 saturation above 90. First brain exam shows brain . Pt too unstable to try an apnea test. 07/26: No clinically significant change. Clinically, I highly suspicious for brain . 07/27: No significant change. Still suspicious for brain . Of note, ABG th is a.m. on FiO2 100%: pH 7.40, PCO2 55, PO2 53. The PO2 of 53 on high FiO2 precludes pursuing an apnea test, as the patient would need to be preoxygenated to a PaO2 greater than 200. 07/28: No change. ABG this a.m.: 7.41/60/50. Of note, the patient's A-a gradient continues to worsen. K 5.8. BUN 202, creatinine 7.58. The family is excepting of the fact that this patient is not a hemodialysis candidate. Patient's and mother presented with multiple family members for a family meeting this morning. They understand that the clinical suspicion is that the patient may already be brain . However, they also understand that the patient's current respiratory status prohibits apnea testing. The patient's is unable to agree to withdrawal of care. However, she does understand that performing additional CPR in the event of cardiac arrest would not provide any clinically meaningful benefit or improvement to this patient. Consequently, she did stipulate that the patient was to be made a DNR. Review of systems relevant to events:: Neurologic, CV Respiratory. Reason for ICU Addmission:: Post arrest. Intubated and on pressors. - Medications: Medications reviewed and adjusted accordingly: Yes Vasopressors:: Epinephrine Physical Exam Vital Signs: Temp Pulse Resp BP Pulse Ox 97.2 F 86 32 H 86/63 L 84 L 07/27/20 18:00 07/28/20 10:00 07/27/20 18:00 07/28/20 14:08 07/28/20 15:00 Intake & Output 07/27/20 07/28/20 07/29/20 06:59 06:59 06:59 Intake Total 1380 1520 250 Output Total 4875 7790 2450 Balance -7715 -6270 -6340 Weight 124 kg 120.9 kg Weight/Height Weight 120.9 kg Height 1.8 m General appearance: PRESENT: no acute distress, well-developed, well-nourished Head exam: PRESENT: atraumatic, normocephalic Eye exam: PRESENT: conjunctiva pink. ABSENT: EOMI, PERRLA, scleral icterus Mouth exam: PRESENT: moist, tongue midline Neck exam: ABSENT: carotid bruit, JVD, lymphadenopathy, thyromegaly Respiratory exam: PRESENT: clear to auscultation pennie. ABSENT: rales, rhonchi, wheezes Cardiovascular exam: PRESENT: RRR. ABSENT: diastolic murmur, rubs, systolic murmur Pulses: PRESENT: normal dorsalis pedis pul GI/Abdominal exam: PRESENT: normal bowel sounds, soft. ABSENT: distended, guarding, mass, organolmegaly, rebound, tenderness Extremities exam: PRESENT: full ROM, pedal edema. ABSENT: calf tenderness, clubbing Neurological exam: PRESENT: other - Neurological exam is suspicious for brain . No apparent brainstem function. Psychiatric exam: ABSENT: agitated, anxious Tubes/Lines: PRESENT: Endotracheal Tube, Central Line, Dialysis catheter Laboratory/Radiographs Laboratory Results: 07/25/20 01:25 07/27/20 08:40 07/28/20 05:30 Carbonic Acid 1.80 H HCO3/H2CO3 Ratio 20:1 ABG pH 7.41 ABG pCO2 59.9 H ABG pO2 49.9 L ABG HCO3 37.4 H ABG O2 Saturation 84.8 L ABG Base Excess 10.2 FiO2 100% 07/15/20 07/16/20 16:25 00:24 Creatine Kinase 504 H Troponin I < 0.012 NT-Pro-B Natriuret Pep 3450 H Impressions: Chest/Abdomen CTA 07/15/20 18:03 IMPRESSION: 1. There is no pulmonary embolus. There is no aortic aneurysm or dissection. 2. Extensive, slightly patchy ground-glass infiltrates bilaterally. Nonspecific finding. May indicate chronic interstitial changes or interstitial edema. Cannot exclude an atypical infectious/ inflammatory process. KUB X-Ray 07/25/20 00:00 IMPRESSION: Indeterminate bowel gas pattern. Chest X-Ray 07/25/20 20:18 IMPRESSION: No significant interval change in the appearance of the chest. All labs, radiographs, diagnostic studies and EKGs were personally reviewed: Yes In addition, reports of radiographic and diagnostic studies were read: Yes Assessment and Plan - Diagnosis (1) ARDS (adult respiratory distress syndrome) Is this a current diagnosis for this admission?: Yes (2) Acute hypoxemic respiratory failure Is this a current diagnosis for this admission?: Yes (3) Hypotension Qualifiers: Hypotension type: unspecified hypotension type Qualified Code(s): I95.9 - Hypotension, unspecified Is this a current diagnosis for this admission?: Yes Plan: * Normal saline 1 L IV bolus. * Stop furosemide infusion. (4) Atrial fibrillation with rapid ventricular response Is this a current diagnosis for this admission?: Yes (5) Diabetes mellitus type 2 in obese Is this a current diagnosis for this admission?: Yes (6) Pneumonia due to COVID-19 virus Is this a current diagnosis for this admission?: Yes (7) Acute kidney injury Is this a current diagnosis for this admission?: Yes (8) Hyperkalemia Is this a current diagnosis for this admission?: Yes Plan Summary: * Clinically, suspicious for brain . * Apnea test cannot be pursued at this time due to the patient's severe Aa gradient. * Per instruction of the patient's (subsequent family meeting), the patient will be made DNR today. Critical Time Critical Time (minutes): 60 Level of Care: ICU -: 1. The care of a critical patient is a dynamic process. This note is a guest service representative synopsis but static in nature. The timeframe for treatments given in order is not necessarily the actual time these treatments may have been done. 2. This patient requires critical care secondary to ongoing requirements for therapy not offered or safe outside the critical care environment. Transfer to a lower level of care will result in altered life or limb morbidity and mortality. 3. Multidisciplinary rounds completed. 4. ABCDE bundle addressed.
[2020-07-28] MEDS: MELATONIN 5 MG TABLET NG SCH (23:57)
[2020-07-29] MEDS ORDERED: RINGERS SOLUTION,LACTATED 1,000 ML IV ONE (05:01)
[2020-07-29 05:58] LABS: ARTERIAL BLOOD BASE EXCESS 13.2 mmol/L; ARTERIAL BLOOD H2CO3 1.45 mmol/L (1.05-1.35); ARTERIAL BLOOD HCO3 37.8 mmol/L (20-24); ARTERIAL BLOOD O2 SATURATION 90.5 % (94-98); ARTERIAL BLOOD PCO2 48.2 mmHg (35-45); ARTERIAL BLOOD PH 7.51 (7.35-7.45); ARTERIAL BLOOD PO2 53.9 mmHg (80-100); ARTERIAL BLOOD TOTAL CO2 39.3 mmol/L (23-27)
[2020-07-29 06:02] LABS: ARTERIAL BLOOD FIO2 100%
[2020-07-29 06:11] LABS: CALCIUM 7.4 mg/dL (8.4-10.2); CHLORIDE 95 mmol/L (98-107); GLUCOSE 70 mg/dL (75-110); POTASSIUM 5.2 mmol/L (3.6-5.0)
[2020-07-29] MEDS ORDERED: ADENOSINE INJ/PF 6 MG/2 ML SDV IV ONE ×4 (06:15→18:13)
[2020-07-29] MEDS ORDERED: AMIODARONE HCL INJ 150 MG/3 ML VIAL IV ONE (06:19)
[2020-07-29 06:21] LABS: BLOOD UREA NITROGEN 216 mg/dL (7-20)
[2020-07-29] MEDS ORDERED: AMIODARONE HCL 150 MG in DEXTROSE 5%-WATER 100 ML IV ONE (06:21)
[2020-07-29 06:22] LABS: ANION GAP 15 (5-19); CARBON DIOXIDE 41 mmol/L (22-30)
[2020-07-29] MEDS ORDERED: METOPROLOL TARTRATE PF/INJ 5 MG/5 ML SDV IV ONE ×2 (06:35→06:40)
[2020-07-29] MEDS: CHOLECALCIFEROL (D3) 1,000 UNIT (25 MCG) TABLET NG SCH (10:57)
[2020-07-29] MEDS: ASCORBIC ACID 500 MG TABLET NG SCH ×2 (10:57→18:07)
[2020-07-29] MEDS: APIXABAN 5 MG TABLET NG SCH ×2 (10:57→18:07)
[2020-07-29] MEDS: DOCUSATE SODIUM 100 MG/10 ML UDC NG SCH (10:57)
[2020-07-29] MEDS: AZITHROMYCIN 250 MG TABLET NG SCH (10:58)
[2020-07-29] MEDS: DEXAMETHASONE SOD PHOS INJ 10 MG/1 ML VIAL IV SCH (10:59)
[2020-07-29] MEDS: FAMOTIDINE INJ/PF 20 MG/2 ML SDV IV SCH ×2 (11:05→21:27)
[2020-07-29] MEDS: ZINC SULFATE 220 MG CAPSULE NG SCH (11:10)
[2020-07-29] MEDS: INSULIN GLARGINE,HUM.REC.ANLOG 1,000 UNIT/10 ML VIAL SUBCUT SCH ×2 (12:00→21:28)
[2020-07-29] MEDS: 1/2 NORMAL SALINE 1,000 ML IV PRN ×2 (14:59→23:37)
[2020-07-29] MEDS ORDERED: DIGOXIN INJ 0.5 MG/2 ML AMPULE ONE (18:22)
[2020-07-29] MEDS ORDERED: DIGOXIN INJ 0.5 MG/2 ML AMPULE IV ONE (19:00)
--- NOTE | 2020-07-29 20:29 | PDOC CRITICAL CARE PROG REPORT ---
General Date:: 07/29/20 ICU Day:: 9 Ventilator Day:: 9 Hospital Day:: 14 Resuscitation Status: Full Code Events in the past 12 to 24 Hours:: Said to be having oxygen needs. 07/21: Post code. Not waking up. Pressure poor on 2 pressors. [id number] in 60s. 07/22: Oxygenation a bit better in the mid-80s. Still unresponsive. 07/23/20: Off pressors but not waking up 07/24: Still no response 07/25: Pt has good BP off pressors, normothermic with an O2 saturation above 90. First brain exam shows brain . Pt too unstable to try an apnea test. 07/26: No clinically significant change. Clinically, I highly suspicious for brain . 07/27: No significant change. Still suspicious for brain . Of note, ABG th is a.m. on FiO2 100%: pH 7.40, PCO2 55, PO2 53. The PO2 of 53 on high FiO2 precludes pursuing an apnea test, as the patient would need to be preoxygenated to a PaO2 greater than 200. 07/28: No change. ABG this a.m.: 7.41/60/50. Of note, the patient's A-a gradient continues to worsen. K 5.8. BUN 202, creatinine 7.58. The family is excepting of the fact that this patient is not a hemodialysis candidate. Patient's and mother presented with multiple family members for a family meeting this morning. They understand that the clinical suspicion is that the patient may already be brain . However, they also understand that the patient's current respiratory status prohibits apnea testing. The patient's is unable to agree to withdrawal of care. However, she does understand that performing additional CPR in the event of cardiac arrest would not provide any clinically meaningful benefit or improvement to this patient. Consequently, she did stipulate that the patient was to be made a DNR. 07/29: Neurologically no change. SpO2 is trending downward despite FiO2 100%. MAP 63. Review of systems relevant to events:: Neurologic, CV Respiratory. Reason for ICU Addmission:: Post arrest. Intubated and on pressors. - Medications: Medications reviewed and adjusted accordingly: Yes Vasopressors:: Epinephrine Physical Exam Vital Signs: Temp Pulse Resp BP Pulse Ox 99.3 F 136 H 32 H 81/60 L 90 L 07/29/20 04:00 07/29/20 10:00 07/29/20 10:00 07/29/20 12:08 07/29/20 13:14 Intake & Output 07/28/20 07/29/20 07/30/20 06:59 06:59 06:59 Intake Total 1520 624 Output Total 7790 5325 695 Balance -6270 -4701 -695 Weight 120.9 kg 115 kg Weight/Height Weight 115 kg Height 1.8 m General appearance: PRESENT: no acute distress, well-developed, well-nourished Head exam: PRESENT: atraumatic, normocephalic Eye exam: PRESENT: conjunctiva pink. ABSENT: EOMI, nystagmus, periorbital swelling, PERRLA, scleral icterus Mouth exam: PRESENT: moist, tongue midline. ABSENT: dry mucosa, laceration, neck supple, other Neck exam: ABSENT: carotid bruit, JVD, lymphadenopathy, thyromegaly Respiratory exam: PRESENT: clear to auscultation pennie, symmetrical, tachypnea. ABSENT: rales, rhonchi, wheezes Cardiovascular exam: PRESENT: RRR. ABSENT: diastolic murmur, rubs, systolic murmur GI/Abdominal exam: PRESENT: normal bowel sounds, soft. ABSENT: distended, guarding, mass, organolmegaly, rebound, tenderness Gentrourinary exam: PRESENT: indwelling catheter Extremities exam: PRESENT: calf tenderness, pedal edema, +2 edema Musculoskeletal exam: PRESENT: normal inspection. ABSENT: deformity Neurological exam: PRESENT: altered. ABSENT: reflexes normal, CN II-XII grossly intact, motor sensory deficit Psychiatric exam: ABSENT: agitated, anxious Tubes/Lines: PRESENT: Endotracheal Tube, Central Line - R subclavian Laboratory/Radiographs Laboratory Results: 07/25/20 01:25 07/29/20 05:25 07/29/20 07/29/20 05:25 05:25 Carbonic Acid 1.45 H HCO3/H2CO3 Ratio 26:1 ABG pH 7.51 H ABG pCO2 48.2 H ABG pO2 53.9 L ABG HCO3 37.8 H ABG O2 Saturation 90.5 L ABG Base Excess 13.2 FiO2 100% Sodium 150.6 H Potassium 5.2 H Chloride 95 L Carbon Dioxide 41 H* Anion Gap 15 BUN 216 H Creatinine 6.92 H Est GFR ( Amer) 10 L Glucose 70 L Calcium 7.4 L 07/15/20 07/16/20 16:25 00:24 Creatine Kinase 504 H Troponin I < 0.012 NT-Pro-B Natriuret Pep 3450 H Impressions: Chest/Abdomen CTA 07/15/20 18:03 IMPRESSION: 1. There is no pulmonary embolus. There is no aortic aneurysm or dissection. 2. Extensive, slightly patchy ground-glass infiltrates bilaterally. Nonspecific finding. May indicate chronic interstitial changes or interstitial edema. Cannot exclude an atypical infectious/ inflammatory process. KUB X-Ray 07/25/20 00:00 IMPRESSION: Indeterminate bowel gas pattern. Chest X-Ray 07/25/20 20:18 IMPRESSION: No significant interval change in the appearance of the chest. All labs, radiographs, diagnostic studies and EKGs were personally reviewed: Yes In addition, reports of radiographic and diagnostic studies were read: Yes Assessment and Plan - Diagnosis (1) ARDS (adult respiratory distress syndrome) Is this a current diagnosis for this admission?: Yes Plan: * Worsening * On PRVC 32/380/100/17. * Titrate vent settings based on ABG results. * Decrease f to 24. * Increase PEEP to 18. * Increase Ti as tolerated. (2) Acute hypoxemic respiratory failure Is this a current diagnosis for this admission?: Yes (3) Hypotension Qualifiers: Hypotension type: unspecified hypotension type Qualified Code(s): I95.9 - Hypotension, unspecified Is this a current diagnosis for this admission?: Yes Plan: * Start 1/2 NS. . (4) Diabetes mellitus type 2 in obese Is this a current diagnosis for this admission?: Yes (5) Pneumonia due to COVID-19 virus Is this a current diagnosis for this admission?: Yes (6) Hyperkalemia Is this a current diagnosis for this admission?: Yes (7) Hypernatremia Is this a current diagnosis for this admission?: Yes (8) Acute kidney injury Is this a current diagnosis for this admission?: Yes Plan: * Avoid nephrotoxic drugs. * Renal dosing of medications. (9) Atrial fibrillation with rapid ventricular response Is this a current diagnosis for this admission?: Yes Plan: * Currently in sinus rhythm. Critical Time Critical Time (minutes): 30 Level of Care: ICU -: 1. The care of a critical patient is a dynamic process. This note is a retail customer service representative synopsis but static in nature. The timeframe for treatments given in order is not necessarily the actual time these treatments may have been done. 2. This patient requires critical care secondary to ongoing requirements for therapy not offered or safe outside the critical care environment. Transfer to a lower level of care will result in altered life or limb morbidity and mortality. 3. Multidisciplinary rounds completed. 4. ABCDE bundle addressed.
[2020-07-29] MEDS: MELATONIN 5 MG TABLET NG SCH (21:27)
--- NOTE | 2020-07-30 07:48 | EKG REPORT ---
SEVERITY:- ABNORMAL ECG - ATRIAL FIBRILLATION WITH RAPID V-RATE BORDERLINE T WAVE ABNORMALITIES : Confirmed on behalf of: Chasity Herring 30-Jul-2020 07:48:21
--- NOTE | 2020-07-30 09:01 | PDOC CRITICAL CARE PROG REPORT ---
General Date:: 07/30/20 ICU Day:: 10 Ventilator Day:: 10 Hospital Day:: 14 Resuscitation Status: Full Code Events in the past 12 to 24 Hours:: Said to be having oxygen needs. 07/21: Post code. Not waking up. Pressure poor on 2 pressors. [id number] in 60s. 07/22: Oxygenation a bit better in the mid-80s. Still unresponsive. 07/23/20: Off pressors but not waking up 07/24: Still no response 07/25: Pt has good BP off pressors, normothermic with an O2 saturation above 90. First brain exam shows brain . Pt too unstable to try an apnea test. 07/26: No clinically significant change. Clinically, I highly suspicious for brain . 07/27: No significant change. Still suspicious for brain . Of note, ABG this a.m. on FiO2 100%: pH 7.40, PCO2 55, PO2 53. The PO2 of 53 on high FiO2 precludes pursuing an apnea test, as the patient would need to be preoxygenated to a PaO2 greater than 200. 07/28: No change. ABG this a.m.: 7.41/60/50. Of note, the patient's A-a gradient continues to worsen. K 5.8. BUN 202, creatinine 7.58. The family is excepting of the fact that this patient is not a hemodialysis candidate. Patient's and mother presented with multiple family members for a family meeting this morning. They understand that the clinical suspicion is that the patient may already be brain . However, they also understand that the patient's current respiratory status prohibits apnea testing. The patient's is unable to agree to withdrawal of care. However, she does understand that performing additional CPR in the event of cardiac arrest would not provide any clinically meaningful benefit or improvement to this patient. Consequently, she did stipulate that the patient was to be made a DNR. 07/29: Neurologically no change. SpO2 is trending downward despite FiO2 100%. MAP 63. 07/30: Hypotensive. Prognosis grim. Expect an arrest soon. Review of systems relevant to events:: CV, pulmonary, Neurological Reason for ICU Addmission:: Post arrest. Intubated, poor neuro status. Hypotensive - Medications: Vasopressors:: None Sedation:: None Physical Exam Vital Signs: Temp Pulse Resp BP Pulse Ox 98.1 F 132 H 24 H 81/61 L 92 07/30/20 07:57 07/30/20 07:57 07/30/20 07:57 07/30/20 07:57 07/30/20 07:57 Intake & Output 07/29/20 07/30/20 07/31/20 06:59 06:59 06:59 Intake Total 624 863 Output Total 5325 2295 175 Balance -4701 -1432 -175 Weight 115 kg 113.8 kg Weight/Height Weight 113.8 kg Height 5 ft 11 in General appearance: PRESENT: no acute distress Head exam: PRESENT: atraumatic, normocephalic Eye exam: PRESENT: conjunctival injection Ear exam: PRESENT: normal external ear exam Mouth exam: PRESENT: moist, tongue midline Respiratory exam: PRESENT: clear to auscultation pennie. ABSENT: rales, rhonchi, wheezes Cardiovascular exam: PRESENT: RRR, tachycardia GI/Abdominal exam: PRESENT: normal bowel sounds, soft, other - Not tolerating TF. ABSENT: distended, guarding, mass, organolmegaly, rebound, tenderness Rectal exam: PRESENT: deferred Gentrourinary exam: PRESENT: indwelling catheter Extremities exam: PRESENT: +1 edema Neurological exam: PRESENT: other - No neuro activity. Skin exam: PRESENT: dry, intact, warm. ABSENT: cyanosis, rash Tubes/Lines: PRESENT: Endotracheal Tube, Central Line, Nasogastic Tube Laboratory/Radiographs Laboratory Results: 07/25/20 01:25 07/29/20 05:25 07/15/20 07/16/20 16:25 00:24 Creatine Kinase 504 H Troponin I < 0.012 NT-Pro-B Natriuret Pep 3450 H Impressions: Chest/Abdomen CTA 07/15/20 18:03 IMPRESSION: 1. There is no pulmonary embolus. There is no aortic aneurysm or dissection. 2. Extensive, slightly patchy ground-glass infiltrates bilaterally. Nonspecific finding. May indicate chronic interstitial changes or interstitial edema. Cannot exclude an atypical infectious/ inflammatory process. KUB X-Ray 07/25/20 00:00 IMPRESSION: Indeterminate bowel gas pattern. Chest X-Ray 07/25/20 20:18 IMPRESSION: No significant interval change in the appearance of the chest. All labs, radiographs, diagnostic studies and EKGs were personally reviewed: Yes In addition, reports of radiographic and diagnostic studies were read: Yes Assessment and Plan - Diagnosis (1) Acute hypoxemic respiratory failure Is this a current diagnosis for this admission?: Yes Plan: This was likely the cause of his arrest and subsequent issues. (2) Diabetes mellitus type 2 in obese Is this a current diagnosis for this admission?: Yes Plan: Controlled (3) HTN (hypertension) Qualifiers: Hypertension type: essential hypertension Qualified Code(s): I10 - Essential (primary) hypertension Is this a current diagnosis for this admission?: Yes Plan: Hypotensive now (4) Lab test positive for detection of COVID-19 virus Is this a current diagnosis for this admission?: Yes Plan: This was likely the cause of his subsequent issues. Plan Summary: Expect his soon. Son trying to get POA from . He may sooner. No change Critical Time Critical Time (minutes): 35 Level of Care: ICU Anticipated discharge: Other Anticipated DC Timeframe: Other -: 1. The care of a critical patient is a dynamic process. This note is a cash posting representative synopsis but static in nature. The timeframe for treatments gi d[facility] in order is not necessarily the actual time these treatments may have been done. 2. This patient requires critical care secondary to ongoing requirements for therapy not offered or safe outside the critical care environment. Transfer to a lower level of care will result in altered life or limb morbidity and mortality. 3. Multidisciplinary rounds completed. 4. ABCDE bundle addressed.
[2020-07-30] MEDS: DEXAMETHASONE SOD PHOS INJ 10 MG/1 ML VIAL IV SCH (10:41)
[2020-07-30] MEDS: DOCUSATE SODIUM 100 MG/10 ML UDC NG SCH (10:41)
[2020-07-30] MEDS: FAMOTIDINE INJ/PF 20 MG/2 ML SDV IV SCH ×2 (10:42→23:16)
[2020-07-30] MEDS: ASCORBIC ACID 500 MG TABLET NG SCH ×2 (10:42→18:07)
[2020-07-30] MEDS: CHOLECALCIFEROL (D3) 1,000 UNIT (25 MCG) TABLET NG SCH (10:43)
[2020-07-30] MEDS: ZINC SULFATE 220 MG CAPSULE NG SCH (10:44)
[2020-07-30] MEDS: INSULIN GLARGINE,HUM.REC.ANLOG 1,000 UNIT/10 ML VIAL SUBCUT SCH (10:45)
[2020-07-30] MEDS: APIXABAN 5 MG TABLET NG SCH ×2 (10:45→18:07)
[2020-07-30] MEDS: 1/2 NORMAL SALINE 1,000 ML IV PRN ×2 (11:34→23:18)
--- NOTE | 2020-07-30 15:04 | RADIOLOGY REPORT (SQ) ---
EXAM DESCRIPTION: KUB/ABDOMEN (SINGLE VIEW) IMAGES COMPLETED DATE/TIME: 07/30/2020 2:54 pm REASON FOR STUDY: check placement of OG tube COMPARISON: None. NUMBER OF VIEWS: One view. TECHNIQUE: Supine radiographic image of the abdomen acquired. LIMITATIONS: Right abdomen excluded by collimation. FINDINGS: BOWEL GAS PATTERN: Normal bowel gas pattern. No dilated loops. CALCIFICATIONS: No suspicious calcifications. SOFT TISSUES: No gross mass or suggestion of organomegaly. HARDWARE: Nasoenteric tube tip overlies distal stomach. BONES: No acute findings. Thoracolumbar spondylosis. OTHER: No other significant finding. IMPRESSION: Enteric tube tip overlies distal stomach. TECHNICAL DOCUMENTATION: JOB ID: [id number] 2010 [employer]- All Rights Reserved Reading location - IP/workstation name: [email or web address]
[2020-07-30] MEDS: MELATONIN 5 MG TABLET NG SCH (23:15)
[2020-07-31] MEDS: INSULIN GLARGINE,HUM.REC.ANLOG 1,000 UNIT/10 ML VIAL SUBCUT SCH ×3 (01:08→21:21)
[2020-07-31] MEDS: 1/2 NORMAL SALINE 1,000 ML IV PRN ×2 (08:02→17:42)
--- NOTE | 2020-07-31 09:52 | PDOC CRITICAL CARE PROG REPORT ---
General Date:: 07/31/20 ICU Day:: 11 Ventilator Day:: 11 Hospital Day:: 13 Resuscitation Status: Full Code Events in the past 12 to 24 Hours:: Said to be having oxygen needs. 07/21: Post code. Not waking up. Pressure poor on 2 pressors. [id number] in 60s. 07/22: Oxygenation a bit better in the mid-80s. Still unresponsive. 07/23/20: Off pressors but not waking up 07/24: Still no response 07/25: Pt has good BP off pressors, normothermic with an O2 saturation above 90. First brain exam shows brain . Pt too unstable to try an apnea test. 07/26: No clinically significant change. Clinically, I highly suspicious for brain . 07/27: No significant change. Still suspicious for brain . Of note, ABG this a.m. on FiO2 100%: pH 7.40, PCO2 55, PO2 53. The PO2 of 53 on high FiO2 precludes pursuing an apnea test, as the patient would need to be preoxygenated to a PaO2 greater than 200. 07/28: No change. ABG this a.m.: 7.41/60/50. Of note, the patient's A-a gradient continues to worsen. K 5.8. BUN 202, creatinine 7.58. The family is excepting of the fact that this patient is not a hemodialysis candidate. Patient's and mother presented with multiple family members for a family meeting this morning. They understand that the clinical suspicion is that the patient may already be brain . However, they also understand that the patient's current respiratory status prohibits apnea testing. The patient's is unable to agree to withdrawal of care. However, she does understand that performing additional CPR in the event of cardiac arrest would not provide any clinically meaningful benefit or improvement to this patient. Consequently, she did stipulate that the patient was to be made a DNR. 07/29: Neurologically no change. SpO2 is trending downward despite FiO2 100%. MAP 63. 07/30: Hypotensive. Prognosis grim. Expect an arrest soon. 07/31: Episode of bradycardia yesterday. Tachycardic today. Still hypotensive. Review of systems relevant to events:: CV, pulmonary, neurological. Reason for ICU Addmission:: Post arrest. Intubated, poor neuro status. Hypotensive - Medications: Medications reviewed and adjusted accordingly: Yes Vasopressors:: None Sedation:: None Physical Exam Vital Signs: Temp Pulse Resp BP Pulse Ox 100.4 F 134 H 24 H 69/53 L 95 07/31/20 08:00 07/31/20 08:00 07/31/20 08:00 07/31/20 09:17 07/31/20 09:17 Intake & Output 07/30/20 07/31/20 08/01/20 06:59 06:59 06:59 Intake Total 863 2000 873 Output Total 2295 1611 150 Balance -1432 389 723 Weight 113.8 kg 113.2 kg Weight/Height Weight 113.2 kg Height 5 ft 10 in General appearance: PRESENT: no acute distress Head exam: PRESENT: atraumatic, normocephalic Eye exam: PRESENT: conjunctiva pink, EOMI, PERRLA. ABSENT: scleral icterus Ear exam: PRESENT: normal external ear exam Mouth exam: PRESENT: moist, tongue midline Respiratory exam: PRESENT: clear to auscultation pennie. ABSENT: rales, rhonchi, wheezes Cardiovascular exam: PRESENT: RRR, tachycardia. ABSENT: diastolic murmur, rubs, systolic murmur GI/Abdominal exam: PRESENT: normal bowel sounds, soft. ABSENT: distended, guarding, mass, organolmegaly, rebound, tenderness Rectal exam: PRESENT: deferred Gentrourinary exam: PRESENT: indwelling catheter Extremities exam: PRESENT: +1 edema Musculoskeletal exam: PRESENT: normal inspection Neurological exam: PRESENT: other - Unresonsive Skin exam: PRESENT: dry, intact, warm. ABSENT: cyanosis, rash Tubes/Lines: PRESENT: Endotracheal Tube, Central Line, Nasogastic Tube Laboratory/Radiographs Laboratory Results: 07/25/20 01:25 07/29/20 05:25 07/15/20 07/16/20 16:25 00:24 Creatine Kinase 504 H Troponin I < 0.012 NT-Pro-B Natriuret Pep 3450 H Impressions: Chest/Abdomen CTA 07/15/20 18:03 IMPRESSION: 1. There is no pulmonary embolus. There is no aortic aneurysm or dissection. 2. Extensive, slightly patchy ground-glass infiltrates bilaterally. Nonspecific finding. May indicate chronic interstitial changes or interstitial edema. Cannot exclude an atypical infectious/ inflammatory process. Chest X-Ray 07/25/20 20:18 IMPRESSION: No significant interval change in the appearance of the chest. KUB X-Ray 07/30/20 00:00 IMPRESSION: Enteric tube tip overlies distal stomach. All labs, radiographs, diagnostic studies and EKGs were personally reviewed: Yes In addition, reports of radiographic and diagnostic studies were read: Yes Assessment and Plan - Diagnosis (1) Lab test positive for detection of COVID-19 virus Is this a current diagnosis for this admission?: Yes Plan: His hypoxia and events leading to the arrest likely stem from Covid. (2) Acute hypoxemic respiratory failure Is this a current diagnosis for this admission?: Yes Plan: This is likely the reason behind his arrest. (3) Diabetes mellitus type 2 in obese Is this a current diagnosis for this admission?: Yes Plan: Controlled and a risk factor for Covid mortality (4) HTN (hypertension) Qualifiers: Hypertension type: essential hypertension Qualified Code(s): I10 - Essential (primary) hypertension Is this a current diagnosis for this admission?: Yes Plan: He has been hypotensive since arrest. (5) Thrombocytopenia Is this a current diagnosis for this admission?: Yes Plan: His Plt count is going down to 45 in a rather slow process. Likely Covid thombosis related. (6) Cardiac arrest Is this a current diagnosis for this admission?: Yes Plan: Again this is the reason for his unstable CV status and his irreversible brain injury. Plan Summary: We hope the son can obtain POA or the will see the futility of prolonging his care. Critical Time Critical Time (minutes): 35 Level of Care: ICU Anticipated discharge: Other Anticipated DC Timeframe: Other -: 1. The care of a critical patient is a dynamic process. This note is a benefits representative synopsis but static in nature. The timeframe for treatments given in order is not necessarily the actual time these treatments may have been done. 2. This patient requires critical care secondary to ongoing requirements for therapy not offered or safe outside the critical care environment. Transfer to a lower level of care will result in altered life or limb morbidity and mortality. 3. Multidisciplinary rounds completed. 4. ABCDE bundle addressed.
[2020-07-31] MEDS: APIXABAN 5 MG TABLET NG SCH ×2 (11:17→17:38)
[2020-07-31] MEDS: DEXAMETHASONE SOD PHOS INJ 10 MG/1 ML VIAL IV SCH (11:17)
[2020-07-31] MEDS: ASCORBIC ACID 500 MG TABLET NG SCH ×2 (11:17→17:38)
[2020-07-31] MEDS: FAMOTIDINE INJ/PF 20 MG/2 ML SDV IV SCH ×2 (11:17→21:22)
[2020-07-31] MEDS: DOCUSATE SODIUM 100 MG/10 ML UDC NG SCH (11:17)
[2020-07-31] MEDS: ZINC SULFATE 220 MG CAPSULE NG SCH (13:26)
[2020-07-31] MEDS: CHOLECALCIFEROL (D3) 1,000 UNIT (25 MCG) TABLET NG SCH (14:18)
[2020-07-31] MEDS: MELATONIN 5 MG TABLET NG SCH (21:01)
[2020-08-01] MEDS: 1/2 NORMAL SALINE 1,000 ML IV PRN ×2 (04:00→12:48)
[2020-08-01 04:12] LABS: HEMATOCRIT 29.9 % (37.9-51.0); HEMOGLOBIN 9.8 g/dL (13.5-17.0); MEAN CORPUSCULAR HEMOGLOBIN 30.6 pg (27.0-33.4); MEAN CORPUSCULAR HGB CONC 32.6 g/dL (32.0-36.0); PLATELET COUNT 137 10^3/uL (150-450); RED BLOOD COUNT 3.19 10^6/uL (4.35-5.55); RED CELL DISTRIBUTION WIDTH 16.4 % (11.5-14.0); WHITE BLOOD COUNT 13.8 10^3/uL (4.0-10.5)
[2020-08-01 05:03] LABS: ALBUMIN 2.6 g/dL (3.5-5.0); ALKALINE PHOSPHATASE 127 U/L (38-126); ASPARTATE AMINO TRANSFERASE 88 U/L (17-59); BILIRUBIN,DIRECT 1.1 mg/dL (0.0-0.4); BILIRUBIN,TOTAL 1.4 mg/dL (0.2-1.3); GLUCOSE 278 mg/dL (75-110); TOTAL PROTEIN 5.7 g/dL (6.3-8.2)
[2020-08-01 05:05] LABS: MEAN CORPUSCULAR VOLUME 94 fl (80-97)
[2020-08-01 05:08] LABS: ABSOLUTE LYMPHOCYTES# (MANUAL) 0.3 10^3/uL (0.5-4.7); ABSOLUTE MONOCYTES # (MANUAL) 0.1 10^3/uL (0.1-1.4); BASOPHILS % (MANUAL) 0 % (0-2); EOSINOPHILS % (MANUAL) 0 % (0-6); LYMPHOCYTES % (MANUAL) 2 % (13-45); MONOCYTES % (MANUAL) 1 % (3-13); SEGMENTED NEUTROPHILS % (MAN) 97 % (42-78); TOTAL CELLS COUNTED 100
[2020-08-01 05:09] LABS: ANISOCYTOSIS 1+; PLATELET COMMENT DECREASED; POLYCHROMASIA 1+
[2020-08-01 05:10] LABS: CARBON DIOXIDE 32 mmol/L (22-30); CHLORIDE 96 mmol/L (98-107); OVALOCYTES SLIGHT
[2020-08-01 05:22] LABS: CALCIUM 6.8 mg/dL (8.4-10.2); POTASSIUM 7.2 mmol/L (3.6-5.0)
[2020-08-01 06:12] LABS: BLOOD UREA NITROGEN 298 mg/dL (7-20)
[2020-08-01 06:13] LABS: ANION GAP 22 (5-19)
[2020-08-01] MEDS: CHOLECALCIFEROL (D3) 1,000 UNIT (25 MCG) TABLET NG SCH (10:19)
[2020-08-01] MEDS: DOCUSATE SODIUM 100 MG/10 ML UDC NG SCH (10:19)
[2020-08-01] MEDS: ZINC SULFATE 220 MG CAPSULE NG SCH (10:19)
[2020-08-01] MEDS: INSULIN GLARGINE,HUM.REC.ANLOG 1,000 UNIT/10 ML VIAL SUBCUT SCH (10:20)
[2020-08-01] MEDS: DEXAMETHASONE SOD PHOS INJ 10 MG/1 ML VIAL IV SCH (10:20)
[2020-08-01] MEDS: FAMOTIDINE INJ/PF 20 MG/2 ML SDV IV SCH (10:20)
[2020-08-01] MEDS: ASCORBIC ACID 500 MG TABLET NG SCH (10:20)
[2020-08-01] MEDS: APIXABAN 5 MG TABLET NG SCH (10:20)
[2020-08-01 11:47] VITALS: BP 117/69
[2020-08-01] MEDS ORDERED: MORPHINE SULFATE 10 MG/ML INJ IV ONE (13:00)
[2020-08-01] MEDS ORDERED: MORPHINE SULFATE 10 MG/ML INJ ONE (13:05)
--- NOTE | 2020-08-01 13:13 | PDOC CRITICAL CARE PROG REPORT ---
General Date:: 08/01/20 ICU Day:: 12 Ventilator Day:: 12 Hospital Day:: 17 Resuscitation Status: Full Code Events in the past 12 to 24 Hours:: Said to be having oxygen needs. 07/21: Post code. Not waking up. Pressure poor on 2 pressors. [id number] in 60s. 07/22: Oxygenation a bit better in the mid-80s. Still unresponsive. 07/23/20: Off pressors but not waking up 07/24: Still no response 07/25: Pt has good BP off pressors, normothermic with an O2 saturation above 90. First brain exam shows brain . Pt too unstable to try an apnea test. 07/26: No clinically significant change. Clinically, I highly suspicious for brain . 07/27: No significant change. Still suspicious for brain . Of note, ABG this a.m. on FiO2 100%: pH 7.40, PCO2 55, PO2 53. The PO2 of 53 on high FiO2 precludes pursuing an apnea test, as the patient would need to be preoxygenated to a PaO2 greater than 200. 07/28: No change. ABG this a.m.: 7.41/60/50. Of note, the patient's A-a gradient continues to worsen. K 5.8. BUN 202, creatinine 7.58. The family is excepting of the fact that this patient is not a hemodialysis candidate. Patient's and mother presented with multiple family members for a family meeting this morning. They understand that the clinical suspicion is that the patient may already be brain . However, they also understand that the patient's current respiratory status prohibits apnea testing. The patient's is unable to agree to withdrawal of care. However, she does understand that performing additional CPR in the event of cardiac arrest would not provide any clinically meaningful benefit or improvement to this patient. Consequently, she did stipulate that the patient was to be made a DNR. 07/29: Neurologically no change. SpO2 is trending downward despite FiO2 100%. MAP 63. 07/30: Hypotensive. Prognosis grim. Expect an arrest soon. 07/31: Episode of bradycardia yesterday. Tachycardic today. Still hypotensive. 08/01: Spoke to and she has agreed to withdraw of care. Review of systems relevant to events:: CV, pulmonary, neurological. Reason for ICU Addmission:: Post arrest. Intubated, poor neuro status. Hypotens richa - Medications: Medications reviewed and adjusted accordingly: Yes Vasopressors:: None Sedation:: None Physical Exam Vital Signs: Temp Pulse Resp BP Pulse Ox 98.8 F 139 H 24 H 117/69 96 08/01/20 10:00 08/01/20 10:00 08/01/20 10:00 08/01/20 11:18 08/01/20 12:00 Intake & Output 07/31/20 08/01/20 08/02/20 06:59 06:59 06:59 Intake Total 1999 2840 880 Output Total 1611 1780 860 Balance 389 1060 20 Weight 113.2 kg 114.4 kg Weight/Height Weight 114.4 kg Height 5 ft 10 in General appearance: PRESENT: no acute distress Head exam: PRESENT: atraumatic, normocephalic Eye exam: PRESENT: conjunctiva pink, EOMI, PERRLA. ABSENT: scleral icterus Ear exam: PRESENT: normal external ear exam Mouth exam: PRESENT: moist, tongue midline Respiratory exam: PRESENT: clear to auscultation pennie. ABSENT: rales, rhonchi, wheezes Cardiovascular exam: PRESENT: RRR, tachycardia. ABSENT: diastolic murmur, rubs, systolic murmur GI/Abdominal exam: PRESENT: normal bowel sounds, soft. ABSENT: distended, guarding, mass, organolmegaly, rebound, tenderness Rectal exam: PRESENT: deferred Gentrourinary exam: PRESENT: indwelling catheter Extremities exam: PRESENT: +1 edema Musculoskeletal exam: PRESENT: normal inspection Neurological exam: PRESENT: other - Unresponsive Skin exam: PRESENT: dry, intact, warm. ABSENT: cyanosis, rash Tubes/Lines: PRESENT: Endotracheal Tube, Central Line, Nasogastic Tube Laboratory/Radiographs Laboratory Results: 08/01/20 03:44 08/01/20 03:44 08/01/20 08/01/20 03:44 03:44 WBC 13.8 H RBC 3.19 L Hgb 9.8 L Hct 29.9 L MCV 94 D MCH 30.6 MCHC 32.6 RDW 16.4 H Plt Count 137 L Seg Neutrophils % Not Reportable Sodium 150.4 H Potassium 7.2 H* Chloride 96 L Carbon Dioxide 32 H Anion Gap 22 H BUN 298 H Creatinine 7.89 H Est GFR ( Amer) 8 L Glucose 278 H Calcium 6.8 L* Total Bilirubin 1.4 H AST 88 H Alkaline Phosphatase 127 H Total Protein 5.7 L Albumin 2.6 L 07/15/20 07/16/20 16:25 00:24 Creatine Kinase 504 H Troponin I < 0.012 NT-Pro-B Natriuret Pep 3450 H Impressions: Chest/Abdomen CTA 07/15/20 18:03 IMPRESSION: 1. There is no pulmonary embolus. There is no aortic aneurysm or dissection. 2. Extensive, slightly patchy ground-glass infiltrates bilaterally. Nonspecific finding. May indicate chronic interstitial changes or interstitial edema. Cannot exclude an atypical infectious/ inflammatory process. Chest X-Ray 07/25/20 20:18 IMPRESSION: No significant interval change in the appearance of the chest. KUB X-Ray 07/30/20 00:00 IMPRESSION: Enteric tube tip overlies distal stomach. All labs, radiographs, diagnostic studies and EKGs were personally reviewed: Yes In addition, reports of radiographic and diagnostic studies were read: Yes Assessment and Plan - Diagnosis (1) Lab test positive for detection of COVID-19 virus Is this a current diagnosis for this admission?: Yes Plan: This is the origin of his recent illness and arrest. (2) Acute hypoxemic respiratory failure Is this a current diagnosis for this admission?: Yes Plan: Will termanally extubate according to 's wishes. (3) Diabetes mellitus type 2 in obese Is this a current diagnosis for this admission?: Yes Plan: Controlled (4) HTN (hypertension) Qualifiers: Hypertension type: essential hypertension Qualified Code(s): I10 - Essential (primary) hypertension Is this a current diagnosis for this admission?: Yes (5) Thrombocytopenia Is this a current diagnosis for this admission?: Yes (6) Cardiac arrest Is this a current diagnosis for this admission?: Yes Plan: He has not recovered neurologically. Plan Summary: I spoke to his , Mili, and she is with family. She has agreed to withdraw care. They do not wish to be here. He is comfort care and Dr. Ness has agreed to be the second signatory. Critical Time Critical Time (minutes): 35 Level of Care: ICU Anticipated discharge: Other Anticipated DC Timeframe: Other -: 1. The care of a critical patient is a dynamic process. This note is a personal service representative synopsis but static in nature. The timeframe for treatments given in order is not necessarily the actual time these treatments may have been done. 2. This patient requires critical care secondary to ongoing requirements for therapy not offered or safe outside the critical care environment. Transfer to a lower level of care will result in altered life or limb morbidity and mortality. 3. Multidisciplinary rounds completed. 4. ABCDE bundle addressed.
--- NOTE | 2020-08-01 13:46 | Death Summary ---
Summary Date : 08/01/20 Time of :: 13:22 Autopsy: No Resuscitation Status: Comfort Measures Only - Final Diagnosis (1) Lab test positive for detection of COVID-19 virus Is this a current diagnosis for this admission?: Yes (2) Acute hypoxemic respiratory failure Is this a current diagnosis for this admission?: Yes (3) Diabetes mellitus type 2 in obese Is this a current diagnosis for this admission?: Yes (4) HTN (hypertension) Is this a current diagnosis for this admission?: Yes (5) Thrombocytopenia Is this a current diagnosis for this admission?: Yes (6) Cardiac arrest Is this a current diagnosis for this admission?: Yes Hospital Course:: This patient was a 60 yo man diagnosed with Covid-19 over 3 weeks ago. He worsened and was on bipap at 100%. He arrested on Jul 20 and was intermittently hypoxic and bradycardic since. When BP was over 90, O2 saturations above 90, he qualified for brain . An apnea test was not performed as he was too unstable. His family after lengthy discussions decided that a withdraw of care was in his best interests. He was made comfort care, was extubated and quickly at 13:22 PM Aug 01.
== END 2020-08-01 13:22 | disposition left against medical advice (07) | DRG 207 ==
LOC: ER 15:52 → EH 21:41 → 3S 07-16 00:17 → EH 07-20 13:45 → ICU 07-20 14:25
PROVIDERS: ADMIT Anesthesiology; ATTEND Anesthesiology
PROC: XW033E5 Introduction of Remdesivir Anti-infective into Peripheral Vein, Percutaneous Approach, New Technology Group 5 (ICD-10-PCS; 2020-07-17)
PROC: XW13325 Transfusion of Convalescent Plasma (Nonautologous) into Peripheral Vein, Percutaneous Approach, New Technology Group 5 (ICD-10-PCS; 2020-07-17)
PROC: 5A1955Z Respiratory Ventilation, Greater than 96 Consecutive Hours (ICD-10-PCS; principal; 2020-07-20)
PROC: 0BH17EZ Insertion of Endotracheal Airway into Trachea, Via Natural or Artificial Opening (ICD-10-PCS; 2020-07-20)
PROC: 02HV33Z Insertion of Infusion Device into Superior Vena Cava, Percutaneous Approach (ICD-10-PCS; 2020-07-20)
DX: U07.1 COVID-19 (principal); J12.82 Pneumonia due to coronavirus disease 2019; J80 Acute respiratory distress syndrome; N17.9 Acute kidney failure, unspecified; T38.0X5A Adverse effect of glucocorticoids and synthetic analogues, initial encounter; I10 Essential (primary) hypertension; I48.0 Paroxysmal atrial fibrillation; E11.65 Type 2 diabetes mellitus with hyperglycemia; I46.9 Cardiac arrest, cause unspecified; E87.5 Hyperkalemia; E11.42 Type 2 diabetes mellitus with diabetic polyneuropathy; Y92.230 Patient room in hospital as the place of occurrence of the external cause; D69.59 Other secondary thrombocytopenia; Z66 Do not resuscitate
CPT/HCPCS: 36415; 36430; 36600; 71045; 71275; 74018; 80048; 80053; 80061; 81001; 82040; 82330; 82550; 82728; 82803; 82947; 82962; 83615; 83735; 83880; 84100; 84484; 85025; 85027; 85379; 85384; 85610; 85730; 86140; 86900; 86901; 92950; 93005; 93010; 94002; 94003; 94640; 94660; 96361; 96374; 96375; 96376; 99233; 99285; 99291; J0610; 0241U; C9803; J0153; J0171; J0282; J1100; J1160; J1630; J1642; J1650; J1815; J1940; J2270; J2765; J3490; J7030; J7050; J7060; J7120; S0028